=== PATIENT | male | born 1950 | race Caucasian/White ===

== ENCOUNTER → 2024-08-26 10:12 | Outpatient (REF) | payer BC, SELFPAY | LOC: HWRCS 10:12 | PROVIDERS: ATTENDING PHYSICIAN Internal Medicine Cardiovascular Disease; FAMILY PHYSICIAN Family Medicine | DX: R06.09 Other forms of dyspnea (principal) | CPT/HCPCS: 93306 ==

== ENCOUNTER → 2024-09-01 07:31 | Outpatient (REF) | payer BC, SELFPAY | LOC: HWRCS 07:31 | PROVIDERS: ATTENDING PHYSICIAN Internal Medicine Cardiovascular Disease; FAMILY PHYSICIAN Family Medicine | DX: R07.89 Other chest pain (principal) | CPT/HCPCS: 78452; 93017; A9500; J2785 ==

== ENCOUNTER 2025-04-15 00:37 | Inpatient (IN) | payer BC, SELFPAY ==
[2025-04-14 19:15] VITALS: BP 138/80
[2025-04-14 19:36] LABS: Hematocrit 43.9 % (39.0-52.0); Hemoglobin 15.2 g/dL (13.0-18.0); Mean Corp Hgb Conc. 34.6 g/dL (33.0-37.0); Mean Corpuscular Volume 91.3 fL (80.0-94.0); Nucleated Red Blood Cells % 0 % (-); Platelet Count 253 10^3/uL (130-400); Red Cell Dist. Width 12.1 % (11.5-14.5)
[2025-04-14 19:53] LABS: ALT (SGPT) 26 U/L (0-50); AST (SGOT) 24 U/L (17-59); Albumin 4.5 g/dl (3.5-5.0); Alkaline Phosphatase 27 U/L (38-126); Blood Urea Nitrogen 23 mg/dl (9-20); Calcium 9.9 mg/dl (8.4-10.2); Carbon Dioxide 23 mmol/L (22-30); Chloride 106 mmol/L (98-107); Glucose 178 mg/dl (70-99); Potassium 4.2 mmol/L (3.5-5.1); Sodium 137 mmol/L (135-145); Total Protein 7.0 g/dl (6.3-8.2); eGFR > 60.00
[2025-04-14 20:06] LABS: Troponin I 0.058 ng/ml
[2025-04-14 22:58] VITALS: BP 128/72
[2025-04-14 22:59] VITALS: BP 128/72
[2025-04-14 23:01] VITALS: BMI 23.6
[2025-04-14 23:32] VITALS: BP 139/76
[2025-04-14 23:38] LABS: Troponin I 0.069 ng/ml
[2025-04-15] VITALS (15 sets, daily range): BP systolic 98–146; BP diastolic 59–95; BMI 22.5; BMI 22.2
--- NOTE | 2025-04-15 00:02 | ED.GENMED ---
History of Present Illness
General
Chief Complaint: Chest Pain
Source: patient and spouse
Time Seen by Provider: 04/14/25 22:55
Nursing documentation reviewed up to this point in time: agreed with
History of Present Illness
History of Present Illness:
Note:
CHIEF COMPLAINT(S)
Chest discomfort and arm pain.
HISTORY OF PRESENT ILLNESS
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 This morning, the patient experienced tightness in
the chest, accompanied by pain radiating down both arms and a sensation of discomfort in the jaw�a symptom he has never experienced before. The symptoms lasted for approximately 15 to 20 minutes and occurred four separate times throughout the day,
initially at 8:00 AM and most recently at 5:30 PM. The patients symptoms dissipated on their own after each occurrence.
ADDITIONAL HISTORY OBTAINED FROM SOURCES OTHER THAN THE PATIENT
Per the patients family, he recently underwent an echo and a stress test ordered by Dr. Valles office, as well as a lung scan ordered by his primary physician at [place], which revealed concerns warranting further evaluation.
CHRONIC MEDICAL CONDITIONS SIGNIFICANTLY AFFECTING CARE
- Hypertension
- Diabetes Mellitus
SOCIAL DETERMINANTS AFFECTING HEALTH
The patients spouse indicated they have experienced a primary diagnosis that expedited his appointment with Dr. Burgess. The involvement of healthcare providers in adjusting appointments implies a significant level of engagement in managing his
health conditions.
FAMILY HISTORY
The patients father had coronary artery disease, and his mother had a history of cerebrovascular accident and was on dialysis due to diabetes. Both parents were diabetic.
SOCIAL HISTORY
The patient has a history of smoking throughout his life, now reduced to occasional cigarette use. He consumes a couple of drinks per week, noting a decrease in drinking frequency.
MEDICATIONS
The patient regularly takes aspirin, specifically for headache relief, rather than cardiac protection. He uses Excedrin, which is taken almost daily for headache management.
REVIEW OF SYSTEMS
- Cardiovascular: Reports tightness in the chest and pain radiating to the arms and jaw on several occasions today.
- Neurological: Complains of daily headaches for which he takes Excedrin.
PHYSICAL EXAM
General: Alert, no acute distress.
Skin: Warm, dry.
Head: Normocephalic, atraumatic, recent excision noted on the face for a benign skin lesion.
Neck: Supple, trachea midline.
Eye Ears, nose, mouth and throat: Oral mucosa moist.
Cardiovascular: Normal peripheral perfusion, No edema, heart sounds are clear.
Respiratory: Respirations are non-labored.
Gastrointestinal : Abdomen nondistended.
Back: Normal range of motion, Normal alignment.
Musculoskeletal: Normal ROM, normal strength.
Neurological: Alert and oriented to person, place, time, and situation, No focal neurological deficit observed.
Psychiatric: Cooperative, appropriate mood & affect.
PROBLEM LIST
Acute:
- Episodes of chest discomfort and arm/jaw pain
Chronic:
- Coronary artery calcifications
- Hypertension
- Diabetes mellitus
PLAN
The patient will be admitted for further evaluation and monitoring of cardiac symptoms. Considering the patients cardiac history and recent presentation, further diagnostic imaging and cardiac assessment will be warranted during the admission.
DIFFERENTIAL DIAGNOSIS
The Differential Diagnosis includes, in no particular order and is not limited to:
1. Acute coronary syndrome
2. Stable angina
3. Myocardial infarction
4. Costochondritis
5. Gastroesophageal reflux disease
6. Pulmonary embolism
7. Aortic dissection
8. Cardiac arrhythmias
9. Myocarditis
10. Anxiety-induced chest pain
Disposition:
SUMMARY OF ENCOUNTER
A 74-year-old male presented with four episodes of chest pain throughout the day, with the last occurring at 5:30 PM. The patients troponin levels are rising. Imaging studies from [place] indicated concerns related to left anterior descending
artery (LAD) calcifications, prompting a recommendation for further evaluation. Efforts to obtain these records from [place] were initially unsuccessful. Heparin was initiated for anticoagulation.
DISPOSITION
The patient will be admitted to the hospitalist service for further management of chest pain.
ASSESSMENT
The patient presents with acute episodes of chest discomfort, history of coronary artery calcifications, and currently rising troponin levels, indicating a possible acute coronary syndrome.
EMERGENCY TREATMENTS ADMINISTERED
Heparin was initiated.
MANAGEMENT OF THE PATIENTS CARE WAS DISCUSSED WITH
The hospitalist has been made aware of the patients current status and plans for admission.
PLAN
The patient will be admitted for further evaluation and monitoring, including continued cardiac assessment and troponin level monitoring, due to the suspected acute coronary syndrome.
INDEPENDENT REVIEW OF LABS AND INTERPRETATION OF TESTS
My independent review of the troponin indicates a rising trend, consistent with possible acute coronary syndrome.
MEDICAL DECISION MAKING
Number and Complexity of Problems Addressed: Chronic conditions affecting care include coronary artery calcifications, hypertension, and diabetes mellitus. Differential diagnosis includes acute coronary syndrome, stable angina, myocardial
infarction, costochondritis, gastroesophageal reflux disease, pulmonary embolism, aortic dissection, cardiac arrhythmias, myocarditis, and anxiety-induced chest pain.
Data:
- Category 1: Attempted to review external records from [place] regarding recent imaging studies but was initially unsuccessful.
- Category 2: Input from the patients family and external cardiology advisors informed the current plan.
DIAGNOSIS
Chest Pain (ICD-10 Code: R07.9)
Coronary Artery Calcification (ICD-10 Code: I25.10)
Suspected Acute Coronary Syndrome (ICD-10 Code: I24.9)
Phy Exam
Physical Exam
Physical Exam:
.
Scores
Heart Score for Chest Pain Patients
STEMI patient?: No
History: Slightly or Non-Suspicious
ECG: Nonspecific Repolarization
Age: >/= 65 years
Risk Factors: >/= 3 Risk Factors or History of CAD
Troponin: </= Normal Limit
Heart Score for Chest Pain Patients: 5
Heart Score Risk: 20.3% MACE over next 6 weeks
Course
Orders/Labs/Results
Orders:
Orders
04/14/25 19:06
Electrocardiogram (*1) Urgent
Reason for Study: Chest Pain
EKG- Treatment ONCE
04/14/25 19:28
Complete Blood Count/With Diff Urgent
Comprehensive Metabolic Panel Urgent
Troponin I Urgent
04/14/25 22:56
Electrocardiogram (*1) Urgent
Reason for Study: Chest Pain
EKG- Treatment ONCE
04/14/25 23:06
Troponin I Urgent
04/14/25 23:45
Heparin 85678 Units/250 ml 25,000 units in 250 ml IV PER PROTOCOL
Weight to be used for heparin protocol in kilograms (kg):: 72.4
Protocol:: Cardiac Tx/Acute Coronary
PTT Goal Range to be used:: PTT 73 to 111 seconds
Order type:: Initial
INITIAL Infusion Dose (UNITS/KG/hr) & then follow protocol:: 15 units/kg/hr
Infusion Dose in UNITS/hr & then follow protocol (UNITS/hr):: 1,100
INFUSION RATE in mL/hr & then follow protocol (mL/hr):: 11
PTT less than or equal to 64 seconds:: Increase rate by 200 units/hr (+ 2 mL/hr)
PTT 64.1 to 72.9 seconds:: Increase rate by 100 units/hr (+ 1 mL/hr)
PTT 73 to 111 seconds:: Target Range. No change in rate.
PTT 111.1 to 130.9 seconds:: Decrease rate by 100 units/hr (- 1 mL/hr)
PTT 131 to 199.9 seconds:: HOLD for 1 hr. Then decrease rate by 200 units/hr (- 2 mL/hr)
PTT greater than or equal to 200 seconds:: HOLD for 2 hrs & Notify Provider. Then decrease by 200 units/hr (-
2 mL/hr)
Lab follow-up:: Each change, PTT q6h until 2 consecutive are therapeutic. Then PTT
daily.
04/14/25 23:57
PTT Urgent
Comment: Obtain baseline before beginning heparin infusion if not already collected
Nursing to Place Non Medication Order As Directed
Physician Order: PTT 6 hours after initial start of Heparin infusion
Above order entered?: Yes
04/15/25 00:20
Admit/Transfer Patient As Directed
Co-Sign Provider:
Level of Care: Inpatient admission
Assign to:: Telemetry
Physician / Group: Eliud
Diagnosis: NSTEMI
Reason for Telemetry: Chest Pain syndromes
Date to Stop Telemetry: 04/17/25
Time to Stop Telemetry: 11:00
Reason for Hospitalization: nstemi
Expected length of stay greater than two midnights?: Yes
ELOS- Estimated Length of Stay in days: 2
I certify the patient meets the requirements for IP care: Yes
PRN Pain Medication Management As Directed
May give lesser potent ordered pain med per pt: Yes
preference::
Protocol:: Medication orders for pain may be administered in a
manner that supports deferring to patient preference
when the pt is:
- Requesting an ordered lesser potent pain medication.
Least to most potent pain medications are defined
as: acetaminophen < NSAID < tramadol < opioids
(morphine, oxycodone, hydromorphone).
- Requesting a lesser dose of the same medication IF
ORDERED.
- Requesting a less intrusive route of administration
if both routes are prescribed by the provider (PO <
IV).
04/15/25 00:21
Code Status As Directed
Resuscitation Status: Full Code
04/15/25 01:59
Acetaminophen [Tylenol] 650 mg PO Q4HPRN PRN
Diazepam [Valium] 5 mg PO DAILY PRN anxiety
Mag Hydrox/Al Hydrox/Simeth [Maalox] 30 ml PO Q4HPRN PRN
Nitroglycerin Sublingual [Nitrostat (Sublingual)] 0.4 mg SL [id number] PRN
Ondansetron Injectable [Zofran] 4 mg IV Q6HPRN PRN
04/15/25 01:59
CARDIOLOGY CONSULT Routine
Consulting Provider: Antoine Funes
Was physician already notified: No
Reason for consult: chest pain, nstemi
Consult Notification Routine
Specialty to Notify: Cardiology
VTE Contraindication Routine
VTE Mechanical Device Contraindication: Medical Contraindication
Pharmocologic Contraindication: Medical Contraindication
Heparin Protocol- PTT Orders As Directed
PTT per Heparin protocol: -Obtain CBC and baseline PTT - if not already collected.
-Obtain PTT 6 hours from start of infusion. Then, every 6 hours until 2 consecutive
PTT's are therapeutic. Then, PTT Daily.
-With each rate change, obtain PTT every 6 hours until 2 consecutive PTT's are
therapeutic. Then, PTT Daily.
Activity As Directed
Activity Level: As Tolerated
Bedside Glucose Monitoring As Directed
Frequency: Q6H
ECG as needed As Directed
ECG as needed for:: Chest Pain
Additional Instructions:: with chest pain x 2 episodes.
INT (Intravenous Needle Therapy) As Directed
Comment: maintain peripheral IV access
Intake/ Output As Directed
Frequency: Per unit guidelines
Notify MD As Directed
Notify physician if: PTT is greater than or equal to 200.
Vital Signs As Directed
Frequency: q4h
Weight As Directed
Frequency: Once
O2 Therapy [RESP] Routine
Titrate/Wean O2 to maintain O2 sat greater than (%): 93
04/15/25 03:35
Troponin I Q4H
Comment: at admit & Q3H for 3 total including ED draws, obtain ECG with each level
04/15/25 06:00
Basic Metabolic Panel IN AM
Cardiovascular Evaluation IN AM
Complete Blood Count/No Diff IN AM
Glycohemoglobin (HgbA1c) IN AM
Insulin Aspart Corrective Low [Novolog Flexpen-Low Resistance] See Protocol SC Q6
04/15/25 07:30
Troponin I Q4H
Comment: at admit & Q3H for 3 total including ED draws, obtain ECG with each level
04/15/25 08:00
Dapagliflozin [Farxiga] 10 mg PO DAILY
Lisinopril [Zestril] 2.5 mg PO DAILY
Pantoprazole [Protonix] 40 mg PO DAILY
04/15/25 11:30
Troponin I Q4H
Comment: at admit & Q3H for 3 total including ED draws, obtain ECG with each level
04/15/25 18:00
Atorvastatin [Lipitor] 5 mg PO QPM
04/15/25 22:00
Fenofibrate 145 [Tricor] 145 mg PO HS
04/17/25 06:00
Complete Blood Count/No Diff Q2D
Comment: notify provider: Platelet count < 130,000 or decrease by 50% from baseline
04/17/25 11:00
DC Protocol for Telemetry ONCE
04/19/25 06:00
Complete Blood Count/No Diff Q2D
Comment: notify provider: Platelet count < 130,000 or decrease by 50% from baseline
04/21/25 06:00
Complete Blood Count/No Diff Q2D
Comment: notify provider: Platelet count < 130,000 or decrease by 50% from baseline
04/23/25 06:00
Complete Blood Count/No Diff Q2D
Comment: notify provider: Platelet count < 130,000 or decrease by 50% from baseline
04/25/25 06:00
Complete Blood Count/No Diff Q2D
Comment: notify provider: Platelet count < 130,000 or decrease by 50% from baseline
04/27/25 06:00
Complete Blood Count/No Diff Q2D
Comment: notify provider: Platelet count < 130,000 or decrease by 50% from baseline
04/29/25 06:00
Complete Blood Count/No Diff Q2D
Comment: notify provider: Platelet count < 130,000 or decrease by 50% from baseline
05/01/25 06:00
Complete Blood Count/No Diff Q2D
Comment: notify provider: Platelet count < 130,000 or decrease by 50% from baseline
Abnormal Lab Results
04/14/25 04/14/25
19:28 23:06
MCH 31.6 H pg
(27.0-31.0)
Absolute Monos (auto) 0.8 H 10^3/uL
(0.1-0.6)
Monocytes % 11.2 H %
(1.7-9.3)
BUN 23 H mg/dl
(9-20)
Glucose 178 H mg/dl
(70-99)
Alkaline Phosphatase 27 L U/L
(38-126)
Troponin I 0.058 H* ng/ml 0.069 H* ng/ml
04/14/25 19:28
04/14/25 19:28
Vital Signs
Initial and Last Documented VS:
Initial Vital Signs
Temp Pulse Resp BP Pulse Ox
98.7 F 78 14 138/80 98
04/14/25 19:15 04/14/25 19:15 04/14/25 19:15 04/14/25 19:15 04/14/25 19:15
Last Documented Vital Signs
Temp Pulse Resp BP Pulse Ox
98.7 F 58 16 132/74 97
04/15/25 03:17 04/15/25 03:17 04/15/25 03:17 04/15/25 03:17 04/15/25 03:17
*Pulse Oximetry
SaO2: 97
Oxygen Mode of Delivery: Room air
Patient hypoxic: no
*Critical Care Note
Total Time (30-74mins, 75-104mins- exclusive of procedures): 32 (Critical care statement: A total of 32 minutes of critical care time was provided for this patient. This time is separate from time utilized to perform the aforementioned documented
procedures. Aggregate critical care time includes only time during which I was engaged in work directl)
Update Note
Update Note:
Pain physician leg checked. No patient found. We spoke with [facility], and they were unable to access any CAT scan.
ED Attending Note
-
Portions of this chart may have been created with voice recognition software.� Occasional wrong word or��sound alike� substitutions may have occurred due to the inherent limitations of voice recognition software.
Discharge Plan
Departure
Patient Disposition: Admit
Date of Disposition: 04/15/25
Time of Disposition: 00:09
Presentation/result/management discussed w/ accepting MD/DO: Hospitalist
Discharge Problem:
Chest pain
Interventions
Interventions:
*Risk Screen - Suicide Last Done: 04/15/25 02:22
*General Assessment Last Done: 04/14/25 19:15
*Neglect/Abuse Screening Last Done: 04/14/25 19:15
*ED COVID-19 Vaccine History Last Done: 04/15/25 02:22
*ED Influenza Vaccine History Last Done: 04/14/25 19:15
*Nursing Disposition Last Done: 04/15/25 01:52
ED- Cardiac Assessment Last Done: 04/14/25 20:45
Discharge Date and Time
Discharge Date/Time: 04/15/25 01:53
--- NOTE | 2025-04-15 00:16 | HPS.HSE ---
Family Physician
-
Family Physician: Poppy Bailey
Chief Complaint
-
Chest pain
History of Present Illness
This is a 74-year-old male with past medical history of hypertension, hyperlipidemia, GERD, diabetes presenting to the emergency department with chest pain.
Patient has history of of obstructive coronary calcifications for several years and had a routine lung screening due to history of smoking which showed increased coronary calcifications with some concerning lesion in the LAD about 1 week ago. He
has a scheduled cardiology appointment. He reported that he had a stress test and echo earlier this year which did not definitive for reversible coronary ischemia.
He reports been usual state of health up until today when he started having intermittent chest pain. He reports substernal chest tightness with radiation to the and bilaterally to the neck and to the jaw. He reported that this lasted for about 10
to 20 minutes. It occurred about 4 times during the day before he came to the emergency department for evaluation. He did not take any medications. He denies diaphoresis and nausea or vomiting. He denied palpitations.
In the emergency department, patient was afebrile, blood pressure 140/76 with a pulse rate of 64 and he was satting 97% on room air. ECG shows a normal sinus rhythm at rate of [address] or T wave changes. Troponin was 0.069.
CBC was unremarkable, electrolytes BUN/creatinine were normal.
Medical History
Past Medical History
Past Medical History: Reports GERD, HTN and Hypercholesterolemia
Past Surgical History: Reports Bowel Resection (Pressure colectomy secondary to diverticulitis) and Other (Mohs surgery, )
Social History
Tobacco: Smoker
Alcohol: Occasional
Drug: None
Personal:
Family History
Family History: Not pertinent
Allergies / Home Medications
Allergies reflects when Allergies were last updated in [facility].
Home Medications with original date entered in [facility]
Allergy/Medication List:
Allergies
Allergy/AdvReac Type Severity Reaction Status Date / Time
No Known Allergies Allergy Verified 04/14/25 23:01
Home Medications
atorvastatin 10 mg tablet (Lipitor) 5 mg PO .DAILYWITHDINNER 04/14/25
bisoprolol 5 mg-hydrochlorothiazide 6.25 mg tablet 1 tab PO .DAILYATNOON 04/14/25
dapagliflozin propanediol 10 mg tablet (Farxiga) 10 mg PO DAILY 04/14/25
diazepam 5 mg tablet 5 mg PO DAILY PRN anxiety 04/14/25
esomeprazole magnesium 20 mg capsule,delayed release (Nexium) 20 mg PO BID 04/14/25
fenofibrate nanocrystallized 145 mg tablet (Tricor) 145 mg PO HS 04/14/25
lisinopril 2.5 mg tablet 2.5 mg PO DAILY 04/14/25
semaglutide 1 mg/dose (4 mg/3 mL) subcutaneous pen injector (Ozempic) 1 mg SC .QSATURDAY 04/14/25
valacyclovir 500 mg tablet 1,000 mg PO .QWEDNESANDS04/14/25
Review of Systems
-
Constitutional: Reports No Symptoms
EENT: Reports No Symptoms
Respiratory: Reports No Symptoms
Cardiac: Reports Chest Pain
Abdomen/GI: Reports No Symptoms
: Reports No Symptoms
Musculoskeletal: Reports No Symptoms
Skin: Reports No Symptoms
Neurological: Reports No Symptoms
Endocrine: Reports No Symptoms
Hematologic/Lymphatic: Reports No Symptoms
Psych: Reports No Symptoms
Physical Exam
Vital Signs
Vital Signs
Temp Pulse Resp BP Pulse Ox
98.7 F 64 21 139/76 97
04/14/25 22:59 04/14/25 23:32 04/14/25 23:32 04/14/25 23:32 04/15/25 00:10
Physical Exam
General: Well Developed, Well Nourished and No Apparent Distress
HEENT: NormoCephalic, Moist mucous membranes and Atraumatic
Respiratory: Clear
Cardiac: S1/S2 and Regular Rhythm; No Murmur or Rub
GI: Soft, Non Tender, Non Distended and Normal Bowel Sounds; No Organomegaly
Rectal: Deferred by Provider
Musculoskeletal: No Clubbing, No Cyanosis and No Edema
Skin: No Rash
Neuro: Nonfocal/grossly intact
Laboratory Results
-
04/14/25 19:28
04/14/25 19:
Laboratory Results
Total Bilirubin 0.4 mg/dl (0.2-1.3) 04/14/25 19:
AST 24 U/L (17-59) 04/14/25:
ALT 26 U/L (0-50) 04/14/25:
Alkaline Phosphatase 27 U/L (38-126) L 04/14/25 19:
Troponin I 0.069 ng/ml H* 04/14/25 23:06
Data Reviewed
-
Medical Tests (Nuc Med, Echo, EKG etc): Image Personally Visualized and interpreted
Lab Data: Labs Reviewed by me
Impression/Plan
-
IMPRESSION:
73-year-old with past medical history significant for hypertension, hyperlipidemia, [id number] diabetes presents to the emergency department with chest pain. He had a recent CT coronary angiography showing significant disease in LAD. He
arrived with initial troponin of 0.07. ECG is nonischemic. He is currently chest pain-free.
PLAN:
NSTEMI
- Admit to telemetry
-Nitroglycerin as needed chest pain
-Continue aspirin, statin plus Tricor,
-Started on heparin drip
-N.p.o. after midnight
-Cardiology consult
Diabetes
-Sliding scale insulin while n.p.o.
- Continue Farxiga
Hypertension
Continue his bisoprolol and hydrochlorothiazide and lisinopril
DVT prophylaxis�heparin drip
CODE STATUS�full code
[2025-04-15 00:46] LABS: APTT 24.6 Sec (23.4-35.0)
[2025-04-15] MEDS: HEPARIN 5800 UNITS IV (01:06)
[2025-04-15] MEDS: HEPARIN 25000 UNITS/250 ML IV ×2 (01:08→18:00)
[2025-04-15 04:21] LABS: Troponin I 0.118 ng/ml
[2025-04-15 06:04] LABS: Glucose - Point of Care 124 mg/dl (70-99)
[2025-04-15 07:38] LABS: Hematocrit 45.2 % (39.0-52.0); Hemoglobin 15.3 g/dL (13.0-18.0); Mean Corp Hgb Conc. 33.8 g/dL (33.0-37.0); Mean Corpuscular Volume 94.2 fL (80.0-94.0); Platelet Count 246 10^3/uL (130-400); Red Cell Dist. Width 12.1 % (11.5-14.5)
--- NOTE | 2025-04-15 07:49 | CON.CAR ---
Addendum entered and electronically signed by Antoine Funes MD 04/15/25 08:46:
I saw and examined the patient.
The Brim Buster's note was reviewed and I agree with the note.
Comment:
GEN: No distress, awake, Ox3
HEENT: supple, anicteric, mmm
LUNGS: CTA, no wheezes/rales
CV: Reg, S1/S2, 1/6 syst LSB, no gallop
ABD: soft, BS+, NT/ND
EXT: No edema
NEURO: Gross non-focal
SKIN: No rash
PLan:
Tknvhude-[id number]-num male past medical hypertension, diabetes, hyperlipidemia and known abnormal coronary calcium score presents with chest tightness rating to his jaw and arms. This initially began with his walking the dog and lasted for
approximately a half an hour and then stopped. He then had several other episodes which occurred at rest and he came to the emerged in for further evaluation. Card troponins were found to be abnormal at 0.1. He currently is pain-free. He denies
any fevers sweats or chills. Previous tress testing has been unremarkable with no clear ischemia from August 2024 with a preserved ejection fraction.
Non-STEMI
Continue IV heparin. Continue aspirin, continue high dose atorvastatin 40 mg daily.
Continue bisoprolol, HCTZ and lisinopril.
Check lipids. Goal LDL 55
Check echocardiogram.
Proceed with cardiac catheterization today. Would hold off on Plavix due to possible three-vessel disease.
Smoking cessation
Original Note:
Consultation
Consultation Request
Date/Time Consultation Performed: 04/15/25
Requesting Provider: Dr. Pratt
Performing Provider: Meagan Taylor PA-C for Dr. Funes
Reason for Consultation: CP, NSTEMI
Medical History
-
Chief Complaint: CP
History of Present Illness:
Patient is a 74-year-old male with past medical history of hypertension, hyperlipidemia, type 2 diabetes with known markedly abnormal coronary calcium score with majority in LAD territory. He was seen in our office 07/2024 and due to complaints of
some dyspnea on exertion and atypical chest pains underwent a nuclear stress test 09/01/2024 which showed a small basal inferior and mid inferior defect that is fixed without evidence of ischemia and preserved EF. He reports he underwent a CT lung
scan in February 2025 which showed severe coronary calcifications. He reports then yesterday he had 4 episodes of chest tightness with associated aching in his jaw and bilateral arm pain. He reports initially this was with walking the dog, however
another episode was just while he was sitting on the couch reading the paper. He reports each episode lasted from 10 to 20 minutes and resolved on its own. As it continued to recur he came to the ER for further evaluation. Initial troponin 0.058
and uptrending. He is presently without chest pain. Cardiology consulted for evaluation
PMH:
History of abnormal coronary calcium score, majority in LAD territory
HTN
HLD
DM2
Mohs surgery 04/10/25
ongoing tobacco use
Past Medical History
Past Medical History: Other (in HPI)
Social History
Tobacco: Smoker
Alcohol: Occasional
Personal:
Living: With Family
Employment: Retired
Family History
Family History: CAD (bypass in Mother)
Allergies / Home Medications
Allergy/AdvReac Type Severity Reaction Status Date / Time
No Known Allergies Allergy Verified 04/14/25 23:01
�Medication �Instructions �Recorded �Confirmed �Type
atorvastatin 10 mg tablet (Lipitor) 5 mg PO .DAILYWITHDINNER 04/14/25 04/14/25 History
bisoprolol 5 1 tab PO .DAILYATNOON 04/14/25 04/14/25 History
mg-hydrochlorothiazide 6.25 mg
tablet
dapagliflozin propanediol 10 mg 10 mg PO DAILY 04/14/25 04/14/25 History
tablet (Farxiga)
diazepam 5 mg tablet 5 mg PO DAILY PRN anxiety 04/14/25 04/14/25 History
esomeprazole magnesium 20 mg 20 mg PO BID 04/14/25 04/14/25 History
capsule,delayed release (Nexium)
fenofibrate nanocrystallized 145 145 mg PO HS 04/14/25 04/14/25 History
mg tablet (Tricor)
lisinopril 2.5 mg tablet 2.5 mg PO DAILY 04/14/25 04/14/25 History
semaglutide 1 mg/dose (4 mg/3 mL) 1 mg SC .QSATURDAY 04/14/25 04/14/25 History
subcutaneous pen injector (Ozempic)
valacyclovir 500 mg tablet 1,000 mg PO .QWEDNESUND04/14/25 04/14/25 History
Review of Systems
-
History Source: Patient
All other systems: Negative unless noted
Physical Exam
Vital Signs
Temp Pulse Resp BP Pulse Ox
98.7 F 58 16 132/74 97
04/15/25 03:17 04/15/25 03:17 04/15/25 03:17 04/15/25 03:17 04/15/25 03:17
Lab Results
04/15/25 07:27
Troponin I 0.118 ng/ml H* D 04/15/25 03:35
Physical Exam
General: No Apparent Distress and Comfortable
HEENT: Normocephalic, Anicteric and Moist Mucous Membranes
Respiratory: Clear and Non Labored Respirations
Cardiac: S1/S2 and Regular Rhythm
GI: Soft, Non Tender, Non Distended and Normal Bowel Sounds
Musculoskeletal: No Clubbing, No Cyanosis and No Edema
Skin: Warm and Dry
Neuro: AO x 3
Impression / Plan
-
Primary Freight Engineer: Dr. Funes
Assessment:
Presentation with CP
NSTEMI
History of abnormal coronary calcium score, majority in LAD territory
Severe coronary calcification noted by lung CT 02/2025
HTN
HLD
DM2
Mohs surgery 04/10/25
ongoing tobacco use
ECHO 08/26/24: EF 64%, mild cLVH, aortic sclerosis, PAP 23 mmHg
Lexiscan nuclear stress test 09/01/24: small basal inferior and mid inferior defect, fixed without evidence of ischemiam EF 63%.
Plan:
-Patient presents with 4 episodes of chest discomfort in setting of prior abnormal coronary calcium score and coronary calcifications noted by lung CT 02/2025
-trop uptrending, 0.118. trend to peak
-EKG SR with NSSTS
-last echo and stress with results as above from earlier this year. check repeat echo
-continue asa, IV heparin
-NPO for cardiac cath today. procedure reviewed with patient today and agreeable to proceed
-CVE pending. on lipitor as OP, will increase dose to 40mg QPM
-in SR on review of tele. continue OP bisoprolol
-further recs based on results of above
Data Reviewed
-
EKG: Tracing Personally Visualized and interpreted
Medical Tests (Nuc Med, Echo etc): Report Reviewed by me
Labs: Labs Reviewed by me
Old Records: Reviewed
[2025-04-15 07:51] LABS: APTT 72.8 Sec (23.4-35.0)
[2025-04-15 08:12] LABS: Troponin I 0.134 ng/ml
--- NOTE | 2025-04-15 08:20 | W.PN.HOSP.TC ---
Today's Communication/Plan
-
see PN
Assessment / Plan
Assessment / Plan
74yo M with PMHx of DM, HTN, HLD came with 3 episodes of transient pressure-like chest pain radiating to jaw and arms b/l. With elevated troponin - concern for NSTEMI
A/P:
#NSTEMI
Heparin drip
ASA, statin, BB
Telemetry
serial Trop and EKG. Initial EKG in ED without ST elevation or TWI
Ntro SL
Card consult: plan for cardiac cath
check TSH, HgbA1c, lipids
#DM type 2 with unspecified complications
Hold oral antighycemic
Insulin SS, Accuchecks, DM diet
#Essential HTN
cont home meds
DVT ppx hep drip
full code
I have spent at least 58min reviewing chart, test results, communication with consultnats and providing direct patient care
Anticipated Discharge: 24 - 48 hours
Subjective/Interval History
-
Date of Service: April 15, 2025
Objective Data
-
Labs:
Laboratory Results
04/15/25 04/15/25 04/15/25
00:23 07:26 07:27
WBC 6.5
Hgb 15.3
Hct 45.2
Plt Count 246
APTT 24.6 72.8 H
Sodium Pending
Potassium Pending
Chloride Pending
Carbon Dioxide Pending
BUN Pending
Creatinine Pending
Glucose Pending
Calcium Pending
Vital Signs:
Vital Signs
Temp Pulse Resp BP Pulse Ox
98.7 F 58 16 132/74 97
04/15/25 03:17 04/15/25 03:17 04/15/25 03:17 04/15/25 03:17 10/01/25 03:17
Review of Systems
-
History Source: Patient
All other systems: Reviewed and negative
Physical Exam
-
General: No Apparent Distress
HEENT: Normocephalic
Respiratory: Clear to Auscultation
Cardiac: Regular Rhythm
Neuro: Awake, Alert, Oriented and AO x 3
Psych: Calm
[2025-04-15] MEDS: PROTONIX 40 MG PO (09:09)
[2025-04-15] MEDS: LOW STRENGTH ASPIRIN 81 MG PO (09:09)
[2025-04-15] MEDS: ZESTRIL 2.5 MG PO (09:10)
[2025-04-15 09:17] LABS: Blood Urea Nitrogen 18 mg/dl (9-20); Calcium 9.4 mg/dl (8.4-10.2); Carbon Dioxide 25 mmol/L (22-30); Chloride 104 mmol/L (98-107); Estimated Creatinine Clearance 110 ml/min; Glucose 142 mg/dl (70-99); HDL Cholesterol 31 mg/dl; LDL Cholesterol, Calculated 53 mg/dl; Potassium 4.1 mmol/L (3.5-5.1); Sodium 137 mmol/L (135-145); Very Low Density Lipoprotein 33 mg/dl (0-30); eGFR > 60.00
--- NOTE | 2025-04-15 09:59 | ITS.CL.CATH ---
C[facility] - Catheterization
Cardiac Catheterization
Procedure Report:
LEFT HEART CATHETERIZATION
Date of Procedure: April 15, 2025
Referring: Aldair Funes
PROCEDURES:
1. Left heart catheterization, coronary angiogram.
2. Moderate sedation.
INDICATION: Concern for NSTEMI
ACCESS: Right radial artery, 6Fr. sheath, under US guidance.
HEMODYNAMICS : (mmHg)
AO (s/d) : 95/56
LVEDP : 11
No significant gradient across the aortic valve to suggest aortic stenosis.
CORONARY FINDINGS
Dominance: Right
Left Main Trunk (LMT): Large caliber vessel that gives rise to the LAD and LCx branches. There is mild diffuse atherosclerotic plaque.
Left Anterior Descending Artery (LAD): Large caliber vessel that gives off 2 major diagonal branches as it courses along the anterior inter-ventricular groove before wrapping around the cardiac apex. Proximal LAD has a hazy, irregular 85 to 90%
stenosis which could also be a possible culprit for presenting ACS.
Left Circumflex Artery (LCx): Small to medium caliber nondominant vessel with 1 small to medium caliber OM branch. Ostial left circumflex has calcified 80% stenosis. Ostial OM1 has 75% stenosis.
Right Coronary Artery (RCA): Large caliber dominant vessel that gives rise to the posterior descending artery (RPDA) and postero-lateral ventricular (RPLV) branches distally. Proximal to mid RCA has diffuse mild to moderate plaque. Mid RCA has
tubular 70% stenosis and distal RCA has tubular up to 90% stenosis which is possible culprit of presenting ACS. RPDA proximally has eccentric 50 to 60% stenosis. RPL branch is a very small caliber vessel with ostial 50% stenosis.
SEDATION: 17 minutes of procedural sedation was utilized. IV Midazolam and IV Fentanyl were administered. An independent medical recruiter was present to assist with and help manage the patient's level of consciousness and physiologic status.
RADIATION SUMMARY: Fluoro Time (min): 1.7, Dose (mGy): 259.77, DAP (Gy.cm2) : 19.7
Closure Device: There were no immediate intra-procedural complications. The sheath was pulled in the canvas shop laborer and a vascular-band applied to the right wrist for radial artery hemostasis using the patent hemostasis technique.
CONCLUSIONS
1. Multivessel coronary artery disease involving the LAD, small to medium caliber nondominant left circumflex as well as a dominant RCA.
2. LVEDP of 11 mmHg.
RECOMMENDATIONS
1. Wean radial band per protocol. Monitor right hand perfusion and for bleeding from the radial site following removal of the vascular-band following trans-radial access.
2. Continue aggressive medical therapy and risk factor modification for secondary CAD prevention.
3. Hydrate with normal saline to mitigate the risk of contrast-induced acute kidney injury.
4. CT surgery consult for consideration of coronary artery bypass grafting with grafts to LAD, OM, RPDA as feasible.
5. Full echocardiogram to assess biventricular function and rule out any significant valvular abnormalities.
Rosemary Tucker MD, FACC, [facility] [place]
Copy to: Aldair Funes
[2025-04-15 12:32] LABS: Glucose - Point of Care 119 mg/dl (70-99)
[2025-04-15 12:43] LABS: Troponin I 0.115 ng/ml
[2025-04-15] MEDS: ZEBETA PO ×2 (12:54→13:09)
--- NOTE | 2025-04-15 13:15 | PTCARENOTE ---
Patent back from labview programmer with TR band on, blood pressures 90/50's, pt denies pain/numbness. Relayed blood pressures to hospitalist
--- NOTE | 2025-04-15 14:05 | CM ---
Reviewed the chart notes and spoke with the patient at the bedside. Advance Directive packet provided to the patient per request. The patient resides with his spouse in a one story home with one step to enter. The patient reports no DME/VN/SNF in
the past. Patient confirmed his pharmacy of choice is [address] CM continues to be available to patient/family and is monitoring medical plan for needs at discharge.
Plan: Discharge to home when medically stable with no further needs identified.
--- NOTE | 2025-04-15 14:20 | CONSULT.CT ---
Consultation
-
Date/Time Consultation Requested: 04/15/25
Date/Time Consultation Performed: 04/15/25
Requesting Provider: Rosemary Tucker MD
Performing Provider: Rosalie MATA for Ascencion Smith MD
Reason for Consultation: CABG evaluation
Patient History
Physicians
Family Physician: Poppy Bailey
Outpatient Supervisor [employer]: Antoine Funes
Inpatient Supervisor [employer]: [facility]
History of Present Illness
74-year-old male with past medical history of hypertension, hyperlipidemia, type 2 diabetes and known markedly abnormal coronary calcium score with majority in LAD territory. He underwent a nuclear stress test 09/01/2024 which reported a small basal
inferior and mid inferior defect that is fixed without evidence of ischemia and preserved EF. Underwent a CT lung scan in February 2025 which showed severe coronary calcifications. On 04/14, the patient developed 'mild' chest tightness with
associated jaw and bilateral arm pain while walking his dog. Similar symptoms occurred several hours later while he was reading the paper. He presented to [facility] ER after an unprovoked third episode. Initial troponin 0.058 and peak 0.134 consistent
with ACS/NSTEMI. On 04/15, patient was taken to the catheterization lab and found to have triple-vessel coronary disease. Cardiac surgery was consulted for CABG evaluation. Patient is currently pain-free resting in bed.
Past Medical History
Past Medical History: HTN, Hypercholesterolemia, NIDDM (x 10 years) and Other (Hepatitis C-told had natural immunity?; diverticulitis; BPH)
Past Surgical History
Past Surgical History: Other (Moh's forehead 04/10/25; R eye cataract extraction; HoLEP for BPH, bowel resection d/t diverticulitis)
Family History
Mother: N/A
Father: N/A
Social History
Alcohol: Occasional
Drug: None
Tobacco: Smoker (prior 1 PPD x 30 yrs, recent 1-2 cigs/d)
Personal:
Living: With Spouse (disabled RN)
Employment: Retired ([employer])
Allergies
Allergy/AdvReac Type Severity Reaction Status Date / Time
No Known Allergies Allergy Verified 04/14/25 23:01
Home Medications
�Medication �Instructions �Recorded �Confirmed �Type
atorvastatin 10 mg tablet (Lipitor) 5 mg PO .DAILYWITHDINNER 04/14/25 04/14/25 History
bisoprolol 5 1 tab PO .DAILYATNOON 04/14/25 04/14/25 History
mg-hydrochlorothiazide 6.25 mg
tablet
dapagliflozin propanediol 10 mg 10 mg PO DAILY 04/14/25 04/14/25 History
tablet (Farxiga)
diazepam 5 mg tablet 5 mg PO DAILY PRN anxiety 04/14/25 04/14/25 History
esomeprazole magnesium 20 mg 20 mg PO BID 04/14/25 04/14/25 History
capsule,delayed release (Nexium)
fenofibrate nanocrystallized 145 145 mg PO HS 04/14/25 04/14/25 History
mg tablet (Tricor)
lisinopril 2.5 mg tablet 2.5 mg PO DAILY 04/14/25 04/14/25 History
semaglutide 1 mg/dose (4 mg/3 mL) 1 mg SC .QSATUR04/14/25 04/14/25 History
subcutaneous pen injector (Ozempic)
valacyclovir 500 mg tablet 1,000 mg PO .QWEDNES04/14/25 04/14/25 History
Review of Systems
-
History Source: Patient
General: Reports No Symptoms
HEENT: Reports No Symptoms
Respiratory: Reports No Symptoms
Cardiac: Reports No Symptoms
Abdomen/GI: Reports No Symptoms
: Reports No Symptoms
Musculoskeletal: Reports No Symptoms
Skin: Reports No Symptoms
Neurological: Reports No Symptoms
Vascular: Reports No Symptoms
Physical Exam
Vital Signs
Temp 98.8 F 04/15/25 14:00
Temp route: Oral 04/15/25 14:00
Pulse 71 04/15/25 14:00
Rhythm: Normal sinus rhythm 04/15/25 09:12
Resp Rate 20 04/15/25 14:00
Blood pressure 139/79 04/15/25 14:00
Blood pressure extremity used: Left upper arm 04/15/25 14:00
Position: Lying 04/15/25 14:00
MAP (cuff-Niocle Monitor) 88 04/15/25 01:00
MAP 88 04/14/25 22:59
SaO2 97 04/15/25 14:00
Oxygen Mode of Delivery Room air 04/15/25 14:00
Can the patient verbally communicate their pain? Yes 04/15/25 09:12
Actual Weight 71.123 kg 04/15/25 02:08
Body Mass Index (BMI) 22.5 04/15/25 02:08
Labs
04/15/25 07:27
04/15/25 07:27
APTT Cancelled 04/15/25 15:00
Troponin I 0.115 ng/ml H* 04/15/25 11:48
Diagnostic Studies
Left Heart Cath (R radial -Dr. Tucker) 04/15/25:
Left Main: mild diffuse atherosclerotic plaque
LAD: hazy, irregular 85-90% proximal stenosis
LCx: Small to medium caliber nondominant vessel with 1 small to medium caliber OM branch. Calcified 80% ostial stenosis. 75% ostial OM1 stenosis.
RCA: Large caliber dominant vessel that gives rise to the posterior descending artery (RPDA) and postero-lateral ventricular (RPLV) branches distally. Proximal to mid RCA has diffuse mild to moderate plaque. Mid RCA has tubular 70% mid and 90%
distal RCA stenosis. Proximal eccentric 50 to 60% RPDA stenosis. Ostial 50% RPL stenosis.
Exam
General: Well Developed, Well Nourished and No Apparent Distress
HEENT: Normocephalic, Anicteric, Moist Mucous Membranes and PERRLA
Neck: Trachea Midline
Respiratory: Clear
Cardiac: S1/S2 and Regular Rhythm
GI: Soft, Non Tender, Non Distended and Normal Bowel Sounds
Rectal: Deferred by Provider
Skin: Warm and Dry
Neuro: AO x 3, No Motor Deficits and Nonfocal/Grossly Intact
Extremities: Pulses (+2/4 DP pulses B/L)
Lymph: No Lymphadenopathy
Psych: Calm
Assessment / Plan
-
74 year old male with known elevated coronary calcium score and admitted with ACS/NSTEMI (troponin max 0.134). Found to have triple vessel coronary disease on cardiac catheterization
- surgeon to review imaging and discuss CABG risk/benefit with patient
- HCV-RCA ordered to assess Hepatitis C status
- hold Lisinopril (last dose (04/15)
- last Ozempic 04/10/25
- preop diagnostics ordered
- will calculate STS risk score when diagnostic work-up completed
Data Reviewed
-
EKG: Report Reviewed by me and Discussed with Physician
Sole Seamer: Report Reviewed by me and Discussed with Physician
Echo: Report Reviewed by me and Discussed with Physician
Radiology: Report Reviewed by me and Discussed with Physician
Labs: Labs Reviewed by me and Discussed with Physician
--- NOTE | 2025-04-15 15:43 | PTCARENOTE ---
Reached out to cardiac surgery CARDIOVASCULAR SPECIALIST Gareth and confirmed that I can move pt's type and screen to midnight lab draw when he will get next aptt check. Saves patient needle stick.
--- NOTE | 2025-04-15 16:32 | PTCARENOTE ---
Also confirmed with cardiac surgery SUPERVISOR COOK ROOM that serum HCV can be collected with midnight blood work as well. Will pass along to shift production supervisor RN
[2025-04-15] MEDS: LIPITOR 40 MG PO (17:16)
[2025-04-15 17:49] LABS: Glucose - Point of Care 107 mg/dl (70-99)
--- NOTE | 2025-04-15 18:10 | PTCARENOTE ---
Patient transferred to ivu on telemetry. Heparin restarted per order with receiving RN. Pt at bedside
--- NOTE | 2025-04-15 18:41 | PTCARENOTE ---
Patient admitted to IVU. Patient is AO x3, NSR, VSS. Heparin started 1200 units/hr. Right arm cath site CDI with Tegaderm. Patient oriented to room and call serrano placed in reach
[2025-04-15 22:17] LABS: Glucose - Point of Care 187 mg/dl (70-99)
[2025-04-15] MEDS: TRICOR 145 MG PO (22:19)
--- NOTE | 2025-04-15 23:17 | PTCARENOTE ---
Pt rec'd at change of shift sitting on side of bed with family at bedside. No c/o cp or sob. Pt instructed to call nursing should he develop any CP.
CXR completed in dept. Heparin drip infusing via LAC. ptt due at in.
Right radial site with DDI, good pulse. IS encouraged hourly with pt hitting 2500 consistently.
[2025-04-16] VITALS (7 sets, daily range): BP systolic 119–154; BP diastolic 69–99; BMI 22.0
[2025-04-16 00:45] LABS: APTT 34.3 Sec (23.4-35.0)
[2025-04-16] MEDS: HEPARIN 25000 UNITS/250 ML IV (05:34)
[2025-04-16 06:37] LABS: INR 1.00; PT 13.8 Sec (11.4-14.6)
[2025-04-16 06:38] LABS: APTT 59.3 Sec (23.4-35.0)
[2025-04-16 06:40] LABS: Blood Urea Nitrogen 19 mg/dl (9-20); Calcium 9.7 mg/dl (8.4-10.2); Carbon Dioxide 23 mmol/L (22-30); Chloride 103 mmol/L (98-107); Estimated Creatinine Clearance 93 ml/min; Glucose 149 mg/dl (70-99); Potassium 4.3 mmol/L (3.5-5.1); Sodium 133 mmol/L (135-145); eGFR > 60.00
--- NOTE | 2025-04-16 08:16 | W.PN.UPDATE ---
Update Note
Progress Note Update
CARDIAC SURGERY ATTENDING:
It was my pleasure to meet with Mr. Butch Lund at his bedside today. His was present via telephone during our conversations. He is a very pleasant gentleman with multivessel CAD. He will benefit from surgical coronary revascularization.
I anticipate HERMES to LAD, greater saphenous vein to OM, greater saphenous vein to RPDA. I recommended concurrent exclusion of his left atrial appendage. We reviewed his coronary pathology, discussed the proposed operative interventions, reviewed
the periprocedural risks (including, but not limited to, , stroke, MT, arrhythmia, PNA, CESILIA/F, bleeding, and infection), discussed expected in-hospital postprocedural course, and reviewed the expected outpatient recovery. All questions were
answered to the best of my abilities. The patient is agreeable to proceed.
His procedure has been scheduled for 04/17/2025
Please call with any questions or concerns
Thank you for the opportunity participate in the care of this patient.
Ascencion Smith MD
[phone]
[2025-04-16 08:47] LABS: Glucose - Point of Care 150 mg/dl (70-99)
[2025-04-16 08:49] LABS: Glycohemoglobin (HgbA1c) 7.4 % (4.0-5.6)
--- NOTE | 2025-04-16 09:35 | W.PN.CARDCBS ---
Addendum entered and electronically signed by Antoine Funes MD 04/16/25 18:26:
I saw and examined the patient.
The Adult Nurse Practitioner's note was reviewed and I agree with the note.
Comment:
GEN: No distress, awake, Ox3
HEENT: supple, anicteric, mmm
LUNGS: CTA, no wheezes/rales
CV: Reg, S1/S2, 1/6 syst LSB, no gallop
ABD: soft, BS+, NT/ND
EXT: No edema
NEURO: Gross non-focal
SKIN: No rash
PLan:
Reviewed results of cardiac cath with him. He has three-vessel disease including LAD, left circumflex, and RCA. Plan will be for coronary bypass surgery in AM.
Continue IV heparin, aspirin, and atorvastatin.
Will switch his bisoprolol to metoprolol postoperatively.
Creatinine 0.7 and hemoglobin normal
Original Note:
Today's Communication / Plan
-
CABG in a.m.
Continue IV heparin, aspirin, Lipitor
Will follow postoperatively
Impression / Plan
-
Primary Pay Station Attendant: Dr. Funes
Assessment:
Presentation with CP
NSTEMI
History of abnormal coronary calcium score, majority in LAD territory
Severe coronary calcification noted by lung CT 02/2025
HTN
HLD
DM2
Mohs surgery 04/10/25
ongoing tobacco use
ECHO 08/26/24: EF 64%, mild cLVH, aortic sclerosis, PAP 23 mmHg
Lexiscan nuclear stress test 09/01/24: small basal inferior and mid inferior defect, fixed without evidence of ischemiam EF 63%.
Echo 04/15/25: EF 55 to 60%, mild concentric LVH, moderate MAC, trace MR
Plan:
-Patient presents with 4 episodes of chest discomfort in setting of prior abnormal coronary calcium score and coronary calcifications noted by lung CT 02/2025
-trop peaked at 0.13
-Echo with results as above
-cath with MV CAD
-planned for CABG 04/17
-no CP overnight
-continue asa, IV heparin
-LDL 53. on lipitor as OP, will increase dose to 40mg QPM
-in SR on review of tele. continue OP bisoprolol
-He has sutures which remain in place from recent Mohs surgery on forehead. 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 Will discuss with CT surgery, and can remove prior to discharge
-will continue to follow post operatively
Progress Note - Pay Station Attendant
Subjective
Date of Service: April 16, 2025
No chest pain, shortness of breath overnight
Objective
Labs:
04/15/25 07:27
04/16/25 05:31
Labs
Hgb 15.3 g/dL (13.0-18.0) 04/15/25 07:27
Hct 45.2 % (39.0-52.0) 04/15/25 07:27
Plt Count 246 10^3/uL (130-400) 04/15/25 07:27
PT 13.8 Sec (11.4-14.6) 04/16/25 05:31
INR 1.00 04/16/25 05:31
APTT 59.3 Sec (23.4-35.0) H 04/16/25 05:31
Sodium 133 mmol/L (135-145) L 04/16/25 05:31
Potassium 4.3 mmol/L (3.5-5.1) 04/16/25 05:31
BUN 19 mg/dl (9-20) 04/16/25 05:31
Creatinine 0.7 mg/dL (0.7-1.3) 04/16/25 05:31
Glucose 149 mg/dl (70-99) H 04/16/25 05:31
Troponins
04/14/25 04/14/25 04/15/25
19:28 23:06 03:35
Troponin I 0.058 H* 0.069 H* 0.118 H* D
04/15/25 04/15/25
07:27 11:48
Troponin I 0.134 H* 0.115 H*
Vital Signs and I&O:
Vital Signs
Temp Pulse Resp BP Pulse Ox
97.9 F 68 20 104/66 97
04/16/25 08:41 04/15/25 23:15 04/16/25 08:41 04/15/25 22:18 04/16/25 08:41
Vital Signs
Temp Pulse Resp BP Pulse Ox
97.9 F 68 20 104/66 97
04/16/25 08:41 04/15/25 23:15 04/16/25 08:41 04/15/25 22:18 04/16/25 08:41
Intake & Output
04/14/25 04/15/25 04/16/25 04/17/25
07:59 07:59 07:59 07:59
Intake Total 660 / 660
Balance 660 / 660
Physical Exam
Physical Exam
GEN: No distress, awake, alert, oriented x3
HEENT: supple, anicteric, mmm, EOMI
LUNGS: CTA bilaterally, no wheezes/rales
CV: Reg, S1/S2, no murmur
ABD: soft, BS+, NT/ND
EXT: No cyanosis, clubbing, edema
NEURO: Gross non-focal
SKIN: Warm, pink, dry. No rash. Right wrist site clean dry and intact
[2025-04-16] MEDS: LOW STRENGTH ASPIRIN 81 MG PO (09:45)
[2025-04-16] MEDS: PROTONIX 40 MG PO (09:45)
[2025-04-16] MEDS: METAMUCIL, KONSYL 1 PACKET PO (09:45)
--- NOTE | 2025-04-16 11:21 | W.PN.HOSP.TC ---
Today's Communication/Plan
-
preOP eval for CABG ongoing, plan for OR on 04/17/25
Assessment / Plan
Assessment / Plan
74yo M with PMHx of DM, HTN, HLD came with 3 episodes of transient pressure-like chest pain radiating to jaw and arms b/l. With elevated troponin - concern for NSTEMI. Cardiac cath found tripple vessel disease so w/u ongoing for CABG
A/P:
#NSTEMI
Heparin drip
ASA, statin, BB
Telemetry
serial Trop and EKG. Initial EKG in ED without ST elevation or TWI
Ntro SL
Card consult: ardiac cath showed Multivessel coronary artery disease involving the LAD, small to medium caliber nondominant left circumflex as well as a dominant RCA.
CTS: plan for CABG
TSH WNL
HgbA1c 7.4%
LDL 53
#DM type 2 with unspecified complications
Hold oral antiglycemic
Insulin SS, Accuchecks, DM diet
#Essential HTN
cont home meds
DVT ppx hep drip
full code
I have spent at least 36min reviewing chart, test results, communication with consultnats and providing direct patient care
Anticipated Discharge: > 48 hours
Subjective/Interval History
-
Date of Service: April 16, 2025
Objective Data
-
Labs:
Laboratory Results
04/16/25 04/16/25 04/16/25
00:19 05:31 13:15
PT 13.8
INR 1.00
APTT 34.3 59.3 H Pending
Sodium 133 L
Potassium 4.3
Chloride 103
Carbon Dioxide 23
BUN 19
Creatinine 0.7
Glucose 149 H
Calcium 9.7
Vital Signs:
Vital Signs
Temp Pulse Resp BP Pulse Ox
97.9 F 60 20 119/72 97
04/16/25 08:41 04/16/25 10:15 04/16/25 08:41 04/16/25 08:44 04/16/25 08:44
I&O
04/15/25 04/16/25 04/17/25
06:59 06:59 06:59
Intake Total 660 / 660
Balance 660 / 660
Review of Systems
-
History Source: Patient
All other systems: Reviewed and negative
Physical Exam
-
General: No Apparent Distress
Neuro: Awake, Alert, Oriented and AO x 3
Psych: Calm
[2025-04-16] MEDS: NOVOLOG FLEXPEN-LOW RESISTANCE SC (11:41)
--- NOTE | 2025-04-16 11:55 | PTCARENOTE ---
Assumed care. Patient denies pain or shortness of breath. NSR, VSS, heparin gtt infusing per MAR, call serrano in reach
--- NOTE | 2025-04-16 12:14 | W.PN.UPDATE ---
Update Note
Progress Note Update
STS RISK SCORE
Procedure Type:�Isolated CABG
Perioperative Outcome Estimate %
Operative Mortality 0.82%
Morbidity & Mortality 4.35%
Stroke 0.77%
Renal Failure 0.454%
Reoperation 2.41%
Prolonged Ventilation 2.2%
Deep Sternal Wound Infection 0.105%
Long Hospital Stay (>14 days) 2.44%
Short Hospital Stay (<6 days)* 63.1%
Clinical Summary
Planned Surgery: Isolated CABG, Urgent, First cardiovascular surgery
Demographics: 74 year old, male, 71.1kg, 178cm, BMI: 22.4 kg/m�
Lab Values: Creatinine: 0.6 mg/dL, Hematocrit: 45.2%, WBC Count: 6.5 10�/�L, Platelet Count: 659945 cells/�L
Substance Abuse: Current smoker, Alcohol use: 2-7 drinks/week
Risk Factors / Comorbidities: Diabetes Mellitus , Liver Disease, Hypertension
Cardiac Status: NYHA Class II, Ejection Fraction = 57%
Coronary Artery Disease: 3 vessels diseased, Proximal LAD Stenosis >=70%, Non-ST Elevation IL, IL: 1 to 7 Days
Valve Disease: Trivial/Trace MR
[2025-04-16 13:16] LABS: Glucose - Point of Care 174 mg/dl (70-99)
[2025-04-16] MEDS: NOVOLOG FLEXPEN-LOW RESISTANCE 1 UNITS SC ×2 (13:29→17:48)
[2025-04-16] MEDS: ZEBETA 5 MG PO (13:32)
--- NOTE | 2025-04-16 14:08 | CM ---
Chart reviewed. Reviewed preoperative and postoperative instructions and restrictions, along with showering guidelines. Gave patient Cardiac Surgery Book. Patient is agreeable to a home visit by CT Transitional RN. Patient is independent of
ADLS, lives with his in a 1 STH, 1 SARAH, 0 DME. Plan is for the patient to return home with CT Transitional RN. CM to follow
[2025-04-16 14:34] LABS: APTT 69.2 Sec (23.4-35.0)
[2025-04-16] MEDS: LIPITOR 40 MG PO (17:42)
[2025-04-16 17:51] LABS: Glucose - Point of Care 150 mg/dl (70-99)
[2025-04-16 20:31] LABS: Hepatitis C Antibody Reactive (Negative)
[2025-04-16 21:29] LABS: APTT 86.0 Sec (23.4-35.0)
[2025-04-16] MEDS: TRICOR 145 MG PO (21:55)
[2025-04-17] VITALS (16 sets, daily range): BP systolic 80–134; BP diastolic 56–96; BMI 21.9
[2025-04-17 03:16] LABS: Hematocrit 40.9 % (39.0-52.0); Hemoglobin 14.0 g/dL (13.0-18.0); Mean Corp Hgb Conc. 34.2 g/dL (33.0-37.0); Mean Corpuscular Volume 91.7 fL (80.0-94.0); Platelet Count 220 10^3/uL (130-400); Red Cell Dist. Width 12.2 % (11.5-14.5)
[2025-04-17 04:02] LABS: APTT 136.4 Sec (23.4-35.0)
[2025-04-17 07:19] LABS: ACT+ - POC 137 Seconds (82-134)
[2025-04-17 08:02] LABS: Urine Character Clear (Clear)
[2025-04-17 08:57] LABS: Urine Squamous Cell 0-2 /LPF (Few)
[2025-04-17 09:05] LABS: ACT+ - POC 493 Seconds (82-134)
--- NOTE | 2025-04-17 09:17 | W.PN.UPDATE ---
Update Note
Progress Note Update
Patient went to OR in AM and was not seen. CTS planning to transfer under their service afterwards. Discussed with CTX need to follow up on HepC Ab positive test (GI consult and HepC PCR quantitative) and to remove sutures on forehead after Mohs
surgery
[2025-04-17 09:22] LABS: B.E. - POC -2.1 mmol/L; Glucose - POC 151 mg/dl (70-99); HCO3 - POC 23 mmol/L (21-28); Hematocrit - POC 39 % PCV (42-52); Hemodilution- POC Yes; Hemoglobin Calculated - POC 13.3; Ionized Calcium - POC 1.27 mmol/L (1.15-1.33); Lactate - POC 0.52 mmol/L (0.36-0.75); O2 Saturation %Calculated-POC 99.9 % (94-98); PCO2 - POC 41 mmHg (35-48); PO2 - POC 288 mmHg (83-108); POC Comment PRE; Potassium - POC 3.7 mmol/L (3.5-5.1); Sodium - POC 136 mmol/L (136-145); Specimen Type - POC Venous; pH - POC 7.36 (7.35-7.45)
[2025-04-17 09:29] LABS: ACT+ - POC 549 Seconds (82-134)
[2025-04-17 09:43] LABS: B.E. - POC 4.1 mmol/L; Glucose - POC 162 mg/dl (70-99); HCO3 - POC 30 mmol/L (21-28); Hematocrit - POC 30 % PCV (42-52); Hemodilution- POC Yes; Hemoglobin Calculated - POC 10.4; Ionized Calcium - POC 1.03 mmol/L (1.15-1.33); Lactate - POC 0.54 mmol/L (0.36-0.75); O2 Saturation %Calculated-POC 100.0 % (94-98); PCO2 - POC 47 mmHg (35-48); PO2 - POC 398 mmHg (83-108); POC Comment CPB; Potassium - POC 4.1 mmol/L (3.5-5.1); Sodium - POC 136 mmol/L (136-145); Specimen Type - POC Venous; pH - POC 7.41 (7.35-7.45)
[2025-04-17 09:56] LABS: ACT+ - POC 546 Seconds (82-134)
[2025-04-17 10:07] LABS: B.E. - POC 1.7 mmol/L; Glucose - POC 140 mg/dl (70-99); HCO3 - POC 25 mmol/L (21-28); Hematocrit - POC 32 % PCV (42-52); Hemodilution- POC Yes; Hemoglobin Calculated - POC 10.7; Ionized Calcium - POC 1.06 mmol/L (1.15-1.33); Lactate - POC 1.01 mmol/L (0.36-0.75); O2 Saturation %Calculated-POC 100.0 % (94-98); PCO2 - POC 34 mmHg (35-48); PO2 - POC 370 mmHg (83-108); POC Comment CPB; Potassium - POC 3.7 mmol/L (3.5-5.1); Sodium - POC 137 mmol/L (136-145); Specimen Type - POC Arterial; pH - POC 7.48 (7.35-7.45)
--- NOTE | 2025-04-17 10:10 | CM ---
Reviewed chart. Mr. Lund is in the operating room today. Prior to admission he resides with his spouse in a one story home with one step to enter. Prior to admission he was independent with ambulation and adls. He does not have any DME. He has
never needed VNA services or SNF/Rehab. He has a prescription plan and uses [facility]. Medical work-up in progress. The discharge plan is to return home with his spouse and a home visit by the Transitional Care Nurse when medically stable.
[2025-04-17 10:13] LABS: ACT+ - POC 478 Seconds (82-134)
[2025-04-17 10:29] LABS: ACT+ - POC 649 Seconds (82-134)
[2025-04-17 10:33] LABS: B.E. - POC 1.9 mmol/L; Glucose - POC 106 mg/dl (70-99); HCO3 - POC 25 mmol/L (21-28); Hematocrit - POC 30 % PCV (42-52); Hemodilution- POC Yes; Hemoglobin Calculated - POC 10.1; Ionized Calcium - POC 1.08 mmol/L (1.15-1.33); Lactate - POC 1.68 mmol/L (0.36-0.75); O2 Saturation %Calculated-POC 99.9 % (94-98); PCO2 - POC 35 mmHg (35-48); PO2 - POC 296 mmHg (83-108); POC Comment CPB; Potassium - POC 3.7 mmol/L (3.5-5.1); Sodium - POC 139 mmol/L (136-145); Specimen Type - POC Arterial; pH - POC 7.47 (7.35-7.45)
[2025-04-17 10:42] LABS: ACT+ - POC 515 Seconds (82-134)
[2025-04-17 10:53] LABS: ACT+ - POC 551 Seconds (82-134)
[2025-04-17 11:23] LABS: B.E. - POC -0.3 mmol/L; Glucose - POC 108 mg/dl (70-99); HCO3 - POC 24 mmol/L (21-28); Hematocrit - POC 31 % PCV (42-52); Hemodilution- POC Yes; Hemoglobin Calculated - POC 10.5; Ionized Calcium - POC 1.09 mmol/L (1.15-1.33); Lactate - POC 2.04 mmol/L (0.36-0.75); O2 Saturation %Calculated-POC 99.9 % (94-98); PCO2 - POC 37 mmHg (35-48); PO2 - POC 297 mmHg (83-108); POC Comment WARM; Potassium - POC 4.2 mmol/L (3.5-5.1); Sodium - POC 139 mmol/L (136-145); Specimen Type - POC Arterial; pH - POC 7.42 (7.35-7.45)
[2025-04-17 11:27] LABS: ACT+ - POC 126 Seconds (82-134)
[2025-04-17 11:31] LABS: B.E. - POC -2.2 mmol/L; Glucose - POC 156 mg/dl (70-99); HCO3 - POC 24 mmol/L (21-28); Hematocrit - POC 28 % PCV (42-52); Hemodilution- POC Yes; Hemoglobin Calculated - POC 9.6; Ionized Calcium - POC 1.35 mmol/L (1.15-1.33); Lactate - POC 1.67 mmol/L (0.36-0.75); O2 Saturation %Calculated-POC 99.9 % (94-98); PCO2 - POC 44 mmHg (35-48); PO2 - POC 291 mmHg (83-108); POC Comment POST; Potassium - POC 4.0 mmol/L (3.5-5.1); Sodium - POC 139 mmol/L (136-145); Specimen Type - POC Arterial; pH - POC 7.34 (7.35-7.45)
--- NOTE | 2025-04-17 11:51 | W.CVOR.SURPR ---
CVOR Surgeon Immed Pre Op
-
I have examined this patient prior to performance of the scheduled procedure.
The patient's condition is unchanged from the time of the dictated/written History and
Physical and the patient is able to undergo the scheduled procedure.
--- NOTE | 2025-04-17 11:51 | W.IMMPOSTOP ---
Addendum entered and electronically signed by Ascencion Smith MD 04/17/25 12:49:
[id number]
Original Note:
Surgical Immed Post Op Note
-
CARDIAC SURGERY OPERATIVE NOTE:
Preoperative Dx:
MVCAD
NSTEMI
HTN
HLD
DM II
Postoperative Dx:
Same
Procedures:
1) Median sternotomy
2) Takedown of HERMES
3) Endoscopic harvest/prep of RLE GSV
4) CABG x 3 (HERMES to LAD, GSV to OM1, GSV to RPDA)
5) ELAA (40mm AtriClip)
Surgeon:
Ascencion Smith M.D.
Assistants:
Alli LindquistARola-CRola; assistant professor of marine biology throughout
Blayne Saldana P.A.-C.; endoscopic harvest/prep of RLE GSV
Anesthesia:
Niko Sanches M.D. and Mitzy Garcia.R.N.A.
Perfusion:
James AlexandreP.; XC: 65min, CPB 101min
Findings:
HERMES was a healthy vessel w/ brisk blood flow but slightly smaller than typical ELD: 2.25mm
GSV was healthy conduit w/ ELD 3.0-3.75mm
LAD was visible on the epicardial surface, moderate scattered calcifications, ELD 2.25mm at midpoint anastomosis. Brisk blood flow observed filling LAD and backfilling major diagonal when bulldog clamp was released
OM1 was initially visible as it exited the AV groove, it than took a shallow intramyocardial course (under approximately 1mm of myocardium). Anastomosis performed in intramyocardial segment. Normal menezes. ELD 2.75mm
RPDA was visible on the epicardial surface w/ moderate scattered calcification. ELD 2.75mm
SARAH w/ windsock morphology - successfully occluded at its base w/ 40mm AtriClip
Post-SELENA: See anesthesia report.
Implants:
Epicardial bipolar pacing wire x 1
AtriClip 40mm [id number], LOT [id number]
Sternal wires x 7
Sternal 'X' plate w/ 4 - 12mm and 4 - 10mm screws
Sternal 'Square' plate w/ 4 - 10mm screws
Transfusions:
None
Complications:
None
Condition:
69 sinus (-0.1/-0.4); 107/56, CVP 17, pO2 296 @ 60% FiO2, SpO2 not reading well, but still > 93%
GTTS: levophed 1, insulin 1, precedex 0.5
Stable/guarded to CVICU
--- NOTE | 2025-04-17 12:10 | PN.DE.MGMTRT ---
Insulin Management
- -
04/17/2025: Diabetes Management Consult
74 year old male admitted 04/14/25 for exertional chest pain. PMH: Nicotine use, HTN, HLD, CAD Mohs procedure 04/10/25 and T2DM. Presented to the hospital with 3 episodes of transient pressure-like chest pain radiating to jaw and arms b/l R/I for
NSTEMI. Left heart cath reported tripple vessel coronary disease--> CABG. Was taking Farxiga 10mg daily and Ozempic 1mg Q Sunday. A1C 7.4%, Cr 0.6, eGFR >60
Now POD 0 s/p CABG x5. Pt is intubated and sedated, unable to interview, no family at bedside. All information and hx obtained from chart review.
Currently on glycemic protocol, blood sugar is stable 164 requiring 4 units of insulin/hr.
Cont insulin infusion postoperatively x 48 hrs. Will reassess readiness to transition off insulin infusion to her outpatient regimen on POD 2
Will cont to follow
Diabetes History
- -
Type of Diabetes: 2
Pre-Admission Diabetes Regimen
Lab Results
Hemoglobin A1c 7.4 % (4.0-5.6) H 04/15/25 07:27
Insulin Pump Settings
IP Diabetes Regimen
04/16/25 04/16/25
13:15 17:47
POC Glucose 174 H 150 H
Meal type: Dinner
Meal type: Dinner
Meal type: Lunch
Amount consumed: 75%
Amount consumed: 100%
Amount consumed: 100%
Patient Education
--- NOTE | 2025-04-17 12:32 | W.PN.UPDATE ---
Update Note
Progress Note Update
74 year old male was admitted 04/14/25 for exertional chest pain, R/I for NSTEMI. Left heart cath reported trop;e vessel coronary disease
IV fluids: 1400
U.O.:� 700
Blood:� none
Wires:� V-wires
Drips: Precedex, Insulin
�
NEURO: sedated, pupils +2mm B/L
RESP: #8OT @23cm> 500/40%/14/5. Lungs clear B/L. 2 mediastinal (30cc on arrival) and R/L pleural (5cc on arrival) chest tubes to -20cm suction. Sanguineous drainage
CV: RRR +S1, S2, no S3, no�rub, no murmur. Dermabond to median sternotomy. RIJ w/Slik
ABD: round, soft, no BS
EXT: no edema, +2/4 DP pulses B/L, no femoral bruit, RLE RADHA wrap intact; left radial A-line intact
: Villalta with clear yellow urine
�
A/P: POD #0 s/p CABG x 3 (HERMES to LAD, GSV to OM1, GSV to RPDA), ELAA (40mm AtriClip)
SELENA: report pending
- wean and extubate
- keep SBP 90-130
# CAD
- will require ASA, Plavix, statin, beta homero
�
# acute surgical blood loss anemia-expected
- trend CBC
�
# T2DM (A1C 7.4)
- insulin infusion x 48h
- on Ozempic, Farxiga at home
- consult to diabetes nurser practitioner
�
# Recent Mohs procedure right forehead
- sutures removed in the OR
# Hx Hepatitis C
- HCV-RCA result from 04/16 pending
[2025-04-17 12:34] LABS: Glucose - Point of Care 164 mg/dl (70-99)
[2025-04-17 12:45] LABS: B.E. -2.4 mmol/L; HCO3 23.7 mmol/L (21-28); O2 Saturation % 96.6 % (94-98); PCO2 45 mmHg (35-48); PO2 79 mmHg (83-108); Potassium 3.8 mMOL/L (3.5-5.1); Sodium 139 mMOL/L (136-145)
[2025-04-17 12:55] LABS: INR 1.36; PT 17.0 Sec (11.4-14.6)
[2025-04-17 12:56] LABS: APTT 29.1 Sec (23.4-35.0)
[2025-04-17 13:07] LABS: Blood Urea Nitrogen 16 mg/dl (9-20); Estimated Creatinine Clearance 107 ml/min; Glucose 167 mg/dl (70-99); Magnesium 3.0 mg/dl (1.6-2.3)
[2025-04-17] MEDS: KCL 50 IV ×2 (13:10→14:06)
[2025-04-17] MEDS: NSS 500 IV (13:10)
[2025-04-17] MEDS: NOVOLOG FLEXPEN SC ×2 (13:10→15:31)
[2025-04-17] MEDS: NEURONTIN PO ×2 (13:11→15:31)
[2025-04-17] MEDS: ANCEF 10 IV ×2 (13:12)
[2025-04-17 13:13] LABS: Hematocrit 36.1 % (39.0-52.0); Hemoglobin 12.5 g/dL (13.0-18.0); Platelet Count 114 10^3/uL (130-400)
[2025-04-17 13:17] LABS: Glucose - Point of Care 234 mg/dl (70-99)
[2025-04-17] MEDS: METAMUCIL, KONSYL PO (13:19)
[2025-04-17] MEDS: PROTONIX PO (13:19)
[2025-04-17] MEDS: LOW STRENGTH ASPIRIN PO (13:19)
[2025-04-17] MEDS: NOVOLOG FLEXPEN-LOW RESISTANCE SC ×2 (13:19)
--- NOTE | 2025-04-17 13:24 | PTCARENOTE ---
Patient received from CVOR at 1230; Sedated and intubated; SR with 1st AVB rhythm on monitor; VSS; Friction rub present; Epicardial V wire present with temporary pacemaker settings VVI 30/10/2.0; +2 DP and radial pulses present; Lungs diminished at
bases; ETT size 8 positioned and secured at 22 cm right lip; Ventilator settings SIMV 14/500/5/5 FiO2 40%; CTx4 to -20 cm wall suction draining bloody drainage - no air leak, tidaling, or crepitus noted; Hypoactive BS; Villalta catheter in place
draining clear, yellow urine; Sternal midline incision covered with Aquacel - scant amount of drainage, Right groin puncture site glued, approximated, and covered with RADHA Wrap, Right leg wrapped in RADHA wrap - CDI; Left radial A-line in place, SLIC
present in RIJ Cordis - all lines zeroed and leveled; PIVx2; Levo, insulin, and precedex infusing - see nursing flowsheets for further details; K repleted x2; see nursing documentation for further details.
[2025-04-17 14:05] LABS: Glucose - Point of Care 155 mg/dl (70-99)
--- NOTE | 2025-04-17 14:40 | PTCARENOTE ---
RT in room and patient placed on CPAP trial at 1435; EPOC ABG due at 1505
--- NOTE | 2025-04-17 15:10 | CON.INTV ---
Consultation
Consultation Request
Date/Time Consultation Requested: 04/17/2025
Date/Time Consultation Performed: 04/17/2025
Medical History
-
Chief Complaint: Chest pain
History of Present Illness:
Patient is a 74-year-old gentleman who had initially presented to emergency room 2 days ago with chest pain. Patient was noted to have elevated troponin and was diagnosed with non-ST elevation NC. Patient was managed with antiplatelets as well as
heparin infusion. Cardiology service evaluated the patient and a coronary angiogram was pursued which showed multivessel coronary artery disease. CT surgery service was subsequently consulted and a coronary artery bypass graft surgery was
recommended. Patient had coronary artery bypass graft performed on 04/17 and postprocedure was admitted to CVICU. Senior Advisory consultation was requested for further input.
Past Medical History
Past Medical History: Reports GERD, HTN and Hypercholesterolemia
Past Surgical History: Reports Bowel Resection (Pressure colectomy secondary to diverticulitis) and Other (Mohs surgery, )
Social History
Tobacco: Smoker
Alcohol: Occasional
Drug: None
Personal:
Family History
Family History: Not pertinent
Allergies / Home Medications
Allergies / Home Medications
Allergies
Allergy/AdvReac Type Severity Reaction Status Date / Time
No Known Allergies Allergy Verified 04/14/25 23:01
Home Medications
�Medication �Instructions �Recorded �Confirmed �Last Taken �Type
atorvastatin 10 mg tablet (Lipitor) 5 mg PO QPM High Cholesterol 04/14/25 04/17/25 04/13/25 17:00 History
1
bisoprolol 5 1 tab PO DAILY@1200 Blood Pressure 04/14/25 04/17/25 04/13/25 12:00 History
mg-hydrochlorothiazide 6.25 mg 1
tablet
dapagliflozin propanediol 10 mg 10 mg PO DAILY Diabetes 04/14/25 04/14/25 04/13/25 09:00 History
tablet (Farxiga) 1
diazepam 5 mg tablet 5 mg PO DAILY PRN anxiety 04/14/25 04/14/25 Unknown History
esomeprazole magnesium 20 mg 20 mg PO BID Gastrointestinal Issue 04/14/25 04/14/25 04/13/25 18:00 History
capsule,delayed release (Nexium) 1
fenofibrate nanocrystallized 145 145 mg PO HS High Cholesterol 04/14/25 04/14/25 04/12/25 23:00 History
mg tablet (Tricor) 1
lisinopril 2.5 mg tablet 2.5 mg PO DAILY Blood Pressure 04/14/25 04/14/25 04/12/25 23:00 History
1
semaglutide 1 mg/dose (4 mg/3 mL) 1 mg SC SA Diabetes 04/14/25 04/17/25 04/11/25 History
subcutaneous pen injector (Ozempic) 1
valacyclovir 500 mg tablet 1,000 mg PO SUWE Infection 04/14/25 04/17/25 04/12/25 History
1
psyllium 1 packet PO DAILY Gastrointestinal 04/15/25 04/15/25 04/14/25 History
Issue
Review of Systems
-
Unable to Obtain full review of systems at this time due to: Other (Still bit sedated, wakes up with stimulation. Appears comfortable )
Vitals / Labs / Diagnostic Testing
Vital Signs
Temp Pulse Resp BP Pulse Ox
98.8 F 80 15 103/77 100
04/17/25 15:00 04/17/25 15:00 04/17/25 15:00 04/17/25 13:15 04/17/25 15:00
Lab Data
04/17/25 12:32
Laboratory Results
04/16/25 04/17/25 04/17/25
20:59 03:04 12:32
PT 17.0 H
INR 1.36
APTT 86.0 H 136.4 H 29.1
pH 7.33 L
pCO2 45
pO2 79 L
HCO3 23.7
O2 Delivery Level
Diagnostic Testing:
Physical Exam
-
HEENT: Normocephalic
Cardiovascular: S1/S2
Respiratory: Clear and Non-Labored Respirations
GI: Soft and Non Distended
Neurology: Other (Drowzy, wakes up with stimulation )
Skin: Warm
General: Comfortable
Assessment
-
74 y/o gentleman admitted with chest pain noted to have non-ST elevation NC. Additional workup suggestive of multivessel coronary artery disease, s/p coronary artery bypass grafting and left atrial appendage exclusion POD # 0
Titrate off pressors per protocol, currently on levo of 2, dobutamine. MAP of 68.
ECHO reviewed with normal function
Management of chest tubes per primary service
Patient extubated, currently saturating 97% on 5 L supplemental oxygen. Work of breathing normal. No respiratory distress noted.
CXR x-ray with questionable skinfold versus small left pneumothorax. No airleak noted in the chest tube.
Prior PFTs reviewed. No known history of lung disease
Can add nebulizers if needed
Aspiration precautions
Encouraged incentive spirometry, OOB/ambulation/early mobility
Advance diet as tolerated following extubation
GI prophylaxis: Protonix
Monitor critical I/O's
Villalta/chest tube output
Hb/platelets postoperatively, mild drift
Trend CBC for now
Can transfuse if indicated for Hb <7, plt <50 in surgical patients
DVT prophylaxis including SCDs
Insulin protocol initiated and ongoing
Transition to SQ/off as indicated per team
Other medical diagnoses:
- HTN
- DM
- HLD
- CAD, NSTEMI & CABG (04/2025)
Critical Care time [61] mins -- The patient is admitted for acute critical illness for the treatment of vital organ failure and/or prevention of further life-threatening conditions. Total care includes time spent in review of history, physical exam,
medications, hemodynamic/ventilator parameters, laboratory data, imaging and discussion with house staff, pharmacy, respiratory therapy, regenerator operator, and nursing
Data:
CXR 04/2025: Skinfold versus pleural edge within the left apex which could signify a small pneumothorax. Attention on follow-up imaging recommended.
C 04/2025: 1. Multivessel coronary artery disease involving the LAD, small to medium caliber nondominant left circumflex as well as a dominant RCA.
2. LVEDP of 11 mmHg.
ECHO 04/2025: 1. Left ventricle is small in size. There is normal systolic function. No regional wall motion abnormalities are seen. Mild concentric left ventricular hypertrophy. Left ventricular ejection fraction is 55-60% by volumetric
assessment. Normal diastolic function.
2. Right ventricular size and systolic function are within normal limits.
3. Thickened mitral leaflets with adequate leaflet excursion. Moderate mitral annular calcification. Chordal systolic anterior motion. Trace mitral regurgitation.
4. There are no prior studies available for comparison.
CT Chest 04/2025: 1. Severe coronary arterial calcification, consistent with the patient's history of coronary artery disease.
2. Mild mitral valvular calcification.
3. Minimal bibasilar subsegmental atelectasis, otherwise clear lungs.
4. Diffuse fatty infiltration of the liver.
Spirometry 04/2025: FEV1/FVC was 72%
FEV1 was 2.49L or 81% of predicted.
FVC was 3.48L or 84% of predicted.
The flow volume appears somewhat restricted.
No significant airflow obstruction by ATS criteria. Mildly decreased FEV1/FVC may suggest some restriction.
[2025-04-17 15:27] LABS: Glucose - Point of Care 101 mg/dl (70-99)
[2025-04-17 15:31] LABS: B.E. -1.9 mmol/L; HCO3 22.2 mmol/L (21-28); O2 Saturation % 99.6 % (94-98); PCO2 35 mmHg (35-48); PO2 169 mmHg (83-108); Potassium 5.2 mMOL/L (3.5-5.1); Sodium 139 mMOL/L (136-145)
[2025-04-17] MEDS: PACERONE PO ×2 (15:31→22:22)
[2025-04-17] MEDS: CALCIUM GLUCONATE 100 IV (15:46)
[2025-04-17] MEDS: OFIRMEV 100 IV (15:55)
[2025-04-17 16:05] LABS: Glucose - Point of Care 103 mg/dl (70-99)
[2025-04-17] MEDS: LOW STRENGTH ASPIRIN 81 MG PO (16:06)
--- NOTE | 2025-04-17 16:18 | W.PN.CARDCBS ---
Addendum entered and electronically signed by Valentin Zaldivar MD 04/17/25 16:52:
I saw and examined the patient.
The Loan Processing Supervisor's note was reviewed and I agree with the note.
Comment: Briefly, 74-year-old man past medical history of multivessel CAD presented with NSTEMI and underwent CABG x 3 earlier today.
At the time of my evaluation he was resting comfortably in the CVICU and had just been extubated
Requiring low dose norepinephrine for pressor support
Warm and well-perfused on exam
Filling pressures are reasonable based on invasive hemodynamics
Maintaining sinus rhythm on review of telemetry
Agree with current cardiac meds�aspirin/Plavix, high intensity statin, beta-homero
Rest per Mandy Rivas
Original Note:
Today's Communication / Plan
-
cont postop care
Impression / Plan
-
Primary Power Plant Operators Supervisor: Dr. Funes
Imp:
Status post CABG x 3 (VAZQUEZ to LAD, GSV to OM1, GSV to RPDA) and SARAH clip, 40 mm AtriClip 04/17/2025
Presentation with CP
NSTEMI
Multivessel CAD on cardiac cath 04/15/2025
Severe coronary calcification noted by lung CT 02/2025
HTN
HLD
DM2
Mohs surgery 04/10/25
ongoing tobacco use
ECHO 08/26/24: EF 64%, mild cLVH, aortic sclerosis, PAP 23 mmHg
Lexiscan nuclear stress test 09/01/24: small basal inferior and mid inferior defect, fixed without evidence of ischemiam EF 63%.
Echo 04/15/25: EF 55 to 60%, mild concentric LVH, moderate MAC, trace MR
Cardiac cath 04/15/2025: Multivessel disease. Proximal LAD with 85 to 90% stenosis. Left circumflex ostial 80% stenosis, ostial OM1 75% stenosis. RCA mid 70% stenosis, distal 90% stenosis. RPDA proximal 50 to 60% stenosis. RPL branch small
caliber with ostial 50% stenosis
Plan:
-s/p CABG x3 and SARAH clip 04/17/2025
-no blood products required
-extubated, on 4L
-on Levo 4mcg/min
-telem personally reviewed: NSR
-cont ASA, Plavix, statin, Metoprolol
-on post op Amio
-goal LDL <55, LDL 53 04/15
-was bisoprolol in OP setting, transitioned to Metoprolol
-sutures from recent Mohs surgery on forehead removed in OR
-will continue to follow post operatively
Progress Note - Power Plant Operators Supervisor
Subjective
Date of Service: April 17, 2025
post op CABG x 3
extubated
Objective
Labs:
04/17/25 12:32
Labs
Hgb 12.5 g/dL (13.0-18.0) L 04/17/25 12:32
Hct 36.1 % (39.0-52.0) L 04/17/25 12:32
Plt Count 114 10^3/uL (130-400) L D 04/17/25 12:32
PT 17.0 Sec (11.4-14.6) H 04/17/25 12:32
INR 1.36 04/17/25 12:32
APTT 29.1 Sec (23.4-35.0) 04/17/25 12:32
Sodium 133 mmol/L (135-145) L 04/16/25 05:31
Potassium 4.3 mmol/L (3.5-5.1) 04/16/25 05:31
BUN 16 mg/dl (9-20) 04/17/25 12:32
Creatinine 0.6 mg/dL (0.7-1.3) L 04/17/25 12:32
Glucose 167 mg/dl (70-99) H 04/17/25 12:32
Troponins
04/14/25 04/14/25 04/15/25
19:28 23:06 03:35
Troponin I 0.058 H* 0.069 H* 0.118 H* D
04/15/25 04/15/25
07:27 11:48
Troponin I 0.134 H* 0.115 H*
Vital Signs and I&O:
Vital Signs
Temp Pulse Resp BP Pulse Ox
99.7 F 76 18 106/78 99
04/17/25 16:00 04/17/25 16:00 04/17/25 16:00 04/17/25 16:00 04/17/25 16:00
Vital Signs
Temp Pulse Resp BP Pulse Ox
99.7 F 76 18 106/78 99
04/17/25 16:00 04/17/25 16:00 04/17/25 16:00 04/17/25 16:00 04/17/25 16:00
Intake & Output
04/15/25 04/16/25 04/17/25 04/18/25
06:59 06:59 06:59 06:59
Intake Total 660 / 660 1054 / 1054 459.5 / 459.5
Output Total 1490 / 1490
Balance 660 / 660 1054 / 1054 -1030.5 / -1030.5
Physical Exam
Physical Exam
GEN: post op, on O2
HEENT: supple, anicteric, mmm
LUNGS: no wheezes/rales
CV: + rub, RRR,S1/S2, no murmur
ABD: soft, BS+, NT/ND
EXT: No edema
NEURO: Gross non-focal
SKIN:surgical incisions w/ drsg
--- NOTE | 2025-04-17 16:22 | PTCARENOTE ---
ABG's reviewed; RT at bedside; Patient extubated at 1530 and placed on 6L NC; IS 1000 ml; IV Ofirmev given for pain with good effect
[2025-04-17 16:28] LABS: Hematocrit 36.5 % (39.0-52.0); Hemoglobin 12.7 g/dL (13.0-18.0); Platelet Count 176 10^3/uL (130-400)
[2025-04-17 17:06] LABS: Glucose - Point of Care 120 mg/dl (70-99)
[2025-04-17] MEDS: DILAUDID 0.5 MG IV ×2 (17:33→22:09)
[2025-04-17] MEDS: LIPITOR PO (17:46)
[2025-04-17 18:03] LABS: Glucose - Point of Care 102 mg/dl (70-99)
[2025-04-17] MEDS: LR 250 ML IV (18:10)
[2025-04-17] MEDS: ANCEF 5 IV (18:22)
[2025-04-17] MEDS: DILAUDID 0.25 MG IV (19:02)
--- NOTE | 2025-04-17 19:30 | PTCARENOTE ---
assumed care of patient @ 1900. received pt laying in bed, aox3. NSR on tele HRs 60s-70s, 1st degree AVB. BP stable on 1 of levo. CVP 8-10. Loud rub auscultated. V wire insulated. Lungs clear, diminished in the bases satting mid 90s on 4L. CTx4 to
wall suction no air leak, tidaling or crepitus noted. Belly hypo, tolerating ice chips. valles present draining clear yellow urine. Sternal aquacel with scant old drainage. R groin and R leg sites CDI with hannah wrap present. R IJ cordis with SLIC, L
radial a line, PIV x2 all patent. central lines zeroed, flushed. Recieved on insulin per protocol, levo at 1. .25 diluadid given at shift change for pain. pt resting with call serrano within reach .
[2025-04-17 20:01] LABS: Glucose - Point of Care 106 mg/dl (70-99)
[2025-04-17] MEDS: ROXICODONE 5 MG PO (20:11)
[2025-04-17] MEDS: LOPRESSOR PO (20:12)
[2025-04-17] MEDS: SENOKOT 8.6 MG PO (20:12)
[2025-04-17] MEDS: BACTROBAN 2% OINTMENT 1 APPLIC NASAL (20:13)
[2025-04-17 22:00] LABS: Glucose - Point of Care 128 mg/dl (70-99)
[2025-04-17] MEDS: NEURONTIN 100 MG PO (22:08)
[2025-04-17] MEDS: TRICOR PO (22:22)
[2025-04-17] MEDS: TYLENOL PO (22:22)
[2025-04-18] VITALS (29 sets, daily range): BP systolic 88–145; BP diastolic 50–89; PULSE 74; O2SAT 100; BMI 22.2
[2025-04-18] LABS: Glucose - Point of Care 118 mg/dl (70-99)
--- NOTE | 2025-04-18 | PTCARENOTE ---
no change in patient assessment, resting with call serrano within reach .
[2025-04-18 02:01] LABS: Glucose - Point of Care 110 mg/dl (70-99)
[2025-04-18] MEDS: DILAUDID 0.5 MG IV (02:03)
[2025-04-18] MEDS: ANCEF 5 IV ×2 (02:04→12:21)
[2025-04-18 02:26] LABS: HCV Quant by NAAT IU/mL Not Detected; HCV Quant by NAAT Interp Not Detected (Not Detected); HCV Quant by NAAT Log IU/mL Not Detected log IU/mL
[2025-04-18 02:57] LABS: Hematocrit 33.9 % (39.0-52.0); Hemoglobin 11.6 g/dL (13.0-18.0); Mean Corp Hgb Conc. 34.2 g/dL (33.0-37.0); Mean Corpuscular Volume 94.7 fL (80.0-94.0); Platelet Count 163 10^3/uL (130-400); Red Cell Dist. Width 12.4 % (11.5-14.5)
[2025-04-18 03:13] LABS: Blood Urea Nitrogen 18 mg/dl (9-20); Calcium 8.3 mg/dl (8.4-10.2); Carbon Dioxide 23 mmol/L (22-30); Chloride 113 mmol/L (98-107); Estimated Creatinine Clearance 107 ml/min; Glucose 98 mg/dl (70-99); Magnesium 2.0 mg/dl (1.6-2.3); Potassium 4.5 mmol/L (3.5-5.1); Sodium 141 mmol/L (135-145); eGFR > 60.00
[2025-04-18] MEDS: ROXICODONE 5 MG PO (04:00)
--- NOTE | 2025-04-18 04:04 | W.PN.CT ---
Today's Communication / Plan
-
-pod #1
-no issues overnight
-drips: Insulin.
-CT outputs: 2 meds 40/205, 2 pleur 105/355
-delined
-d/c Villalta
-continue insulin
-current meds (ASA, Plavix, Lipitor, Tricor, Lopressor, Amio, Protonix)
-encourage IS, OOB
Assessment / Plan
-
- NSTEMI/mv-CAD - s/p CABG x 3 (HERMES to LAD, GSV to OM1, GSV to RPDA); ELAA (40mm AtriClip) on 04/17/25, pod #1
- HTN
- HLD
- DM II
- Hep C-remote
- Current tobacco use
- Mohs procedure R forehead 04/10/25
- BPH
- Acute postop blood loss anemia - stable
- Acute postop thrombocytopenia
- Acute postop atelectasis
- Acute postop hypovolemia with subsequent hypervolemia
- Suspected acute postop pericarditis/+rub
Discussed patient care with: Nursing and Care Team
Subjective
-
Date of Service: April 18, 2025
Objective Data
-
Lab Results
04/18/25 02:16
04/18/25 02:16
PT 17.0 Sec (11.4-14.6) H 04/17/25 12:32
INR 1.36 04/17/25 12:32
APTT 29.1 Sec (23.4-35.0) 04/17/25 12:32
Vital Signs
Vital Signs
Temp Pulse Resp BP Pulse Ox
98.9 F 65 11 124/62 99
04/18/25 02:00 04/18/25 02:30 04/18/25 02:30 04/18/25 02:00 04/18/25 02:30
CT Intake/Output/Weight
04/17/25 04/17/25 04/18/25
06:59 18:59 06:59
Intake Total 362 / 1054 1018.1 / 1207.1 189.0 / 1207.1
Output Total 164 / 8 393 / 2037
Balance 362 / 1054 -626.9 / -830.9 -204.0 / -830.9
SaO2: 99
Physical Exam
-
General: Awake and AOx3
Cardiovascular: Regular rate & rhythm, No Murmurs and Rub
Respiratory: Decreased Breath Sounds
Sternum: Stable
Incision: Clean, Dry and Intact
Extremities: No Edema (1+DPs b/l)
Abdomen: soft, nontender, nondistended, + decreased bowel sounds
Data Reviewed
-
Lab Results: Results Reviewed
Medications: Active Meds Reviewed
Chest X-Ray: Report Reviewed and Image Reviewed
ECG: Report Reviewed and Image Reviewed
[2025-04-18 04:05] LABS: Glucose - Point of Care 87 mg/dl (70-99)
[2025-04-18 06:30] LABS: Glucose - Point of Care 93 mg/dl (70-99)
[2025-04-18] MEDS: TYLENOL 975 MG PO ×3 (07:38→20:11)
[2025-04-18] MEDS: PACERONE 200 MG PO ×3 (07:38→20:11)
[2025-04-18] MEDS: LOW STRENGTH ASPIRIN 81 MG PO (07:39)
[2025-04-18] MEDS: SENOKOT 8.6 MG PO ×2 (07:39→20:12)
[2025-04-18] MEDS: LIDOCAINE 4% PATCH 1 PATCH TOPICAL (07:39)
[2025-04-18] MEDS: PLAVIX 75 MG PO (07:39)
[2025-04-18] MEDS: NEURONTIN 100 MG PO ×3 (07:39→20:10)
[2025-04-18] MEDS: MAGNESIUM OXIDE 400 MG PO ×2 (07:39→20:10)
[2025-04-18] MEDS: FEOSOL 325 MG PO (07:39)
[2025-04-18] MEDS: VITAMIN C 500 MG PO (07:39)
--- NOTE | 2025-04-18 07:42 | PTCARENOTE ---
levo off, no other change in assessment .
--- NOTE | 2025-04-18 07:42 | PTCARENOTE ---
pt delined per order, valles out, stood to scale and to chair with steady gait. now resting in chair with call serrano within reach .
[2025-04-18] MEDS: BACTROBAN 2% OINTMENT 1 APPLIC NASAL ×2 (07:43→20:13)
[2025-04-18] MEDS: LOPRESSOR 12.5 MG PO ×2 (08:11→20:12)
[2025-04-18 08:15] LABS: Glucose - Point of Care 125 mg/dl (70-99)
[2025-04-18] MEDS: NOVOLOG FLEXPEN SC ×2 (08:19→12:22)
--- NOTE | 2025-04-18 09:00 | PTCARENOTE ---
Patient care assumed from nightshift RN. Got patient up to chair with assistance x2. Pt complains of 8/10 surgical incision pain, Torradol given, pt states relief since administration. Fully alert and oriented. Afebile, HR NSR w RBBB, rate 70-80s.
BP stable. On 2LNC with 98% O2 sats. Lungs diminished in bilateral bases, friction rub present. Chest tubes x4 to -20cm H20 suction intact, draining serosanguineous fluid, minimal amounts. Patient using IS frequently, reaching 750-1000. Pulses
palpable in upper and lower bilateral extremities. No edema noted. Pneumatic SCD leg pumps in use. Insulin gtt continued, following critical care protocol. Pawan discontinued this a.m, pt due to void by around noon. Pt diet advanced, lunch ordered.
[2025-04-18] MEDS: TORADOL 15 MG IV ×3 (09:19→23:03)
--- NOTE | 2025-04-18 09:29 | W.PN.ANS.POP ---
Anesthesia Post Operative
- Anesthesia Post Op Note
Vital Signs Stable-See Nursing Note: Yes
Airway Patent: Yes
Adequate Pain Control: Yes
Change in Mental Status: No
Current Postoperative Nausea & Vomiting: No
Anesthesia Complications: No
General Anesthetic Recall: No
Unplanned Admission: No
Post Op Hydration Adequate: Yes
--- NOTE | 2025-04-18 09:43 | W.PN.INTV ---
Addendum entered and electronically signed by Sharad Marin MD 04/19/25 13:15:
Patient transferred to telemetry service.
Blood Bank Custodian service will sign off, please call as needed
Original Note:
Today's Communication / Plan
Recommendations
- Incentive spirometry
- Wean O2 as tolerated
- Transition off insulin infusion
- Blood Bank Custodian service will sign off once patient is transferred out of ICU
Assessment
-
74 y/o gentleman admitted with chest pain noted to have non-ST elevation PA. Additional workup suggestive of multivessel coronary artery disease, s/p coronary artery bypass grafting and left atrial appendage exclusion POD # 1
Titrated off pressors per protocol, current MAP of 75, not requiring any pressor support
ECHO reviewed with normal function
Management of chest tubes per primary service
Patient extubated, currently saturating 97% on 2 L supplemental oxygen. Work of breathing normal. No respiratory distress noted.
CXR does not demonstrate any pneumothorax. Suspect skinfold noted on prior imaging.
Prior PFTs reviewed. No known history of lung disease
Can add nebulizers if needed
Aspiration precautions
Encouraged incentive spirometry, OOB/ambulation/early mobility
Advance diet as tolerated following extubation
GI prophylaxis: Protonix
Monitor critical I/O's
[place]/chest tube output
Hb/platelets postoperatively, mild drift
Trend CBC for now
Can transfuse if indicated for Hb <7, plt <50 in surgical patients
DVT prophylaxis including SCDs
Insulin protocol initiated and ongoing
Transition to SQ/off as indicated per team
Other medical diagnoses:
- HTN
- DM
- HLD
- CAD, NSTEMI & CABG (04/2025)
Critical Care time [41] mins -- The patient is admitted for acute critical illness for the treatment of vital organ failure and/or prevention of further life-threatening conditions. Total care includes time spent in review of history, physical exam,
medications, hemodynamic/ventilator parameters, laboratory data, imaging and discussion with house staff, pharmacy, respiratory therapy, nut and bolt assembler, and nursing
Data:
CXR 04/2025: Skinfold versus pleural edge within the left apex which could signify a small pneumothorax. Attention on follow-up imaging recommended.
C 04/2025: 1. Multivessel coronary artery disease involving the LAD, small to medium caliber nondominant left circumflex as well as a dominant RCA.
2. LVEDP of 11 mmHg.
ECHO 04/2025: 1. Left ventricle is small in size. There is normal systolic function. No regional wall motion abnormalities are seen. Mild concentric left ventricular hypertrophy. Left ventricular ejection fraction is 55-60% by volumetric
assessment. Normal diastolic function.
2. Right ventricular size and systolic function are within normal limits.
3. Thickened mitral leaflets with adequate leaflet excursion. Moderate mitral annular calcification. Chordal systolic anterior motion. Trace mitral regurgitation.
4. There are no prior studies available for comparison.
CT Chest 04/2025: 1. Severe coronary arterial calcification, consistent with the patient's history of coronary artery disease.
2. Mild mitral valvular calcification.
3. Minimal bibasilar subsegmental atelectasis, otherwise clear lungs.
4. Diffuse fatty infiltration of the liver.
Spirometry 04/2025: FEV1/FVC was 72%
FEV1 was 2.49L or 81% of predicted.
FVC was 3.48L or 84% of predicted.
The flow volume appears somewhat restricted.
No significant airflow obstruction by ATS criteria. Mildly decreased FEV1/FVC may suggest some restriction.
Subjective Dataa
Subjective Data
Date of Service:
Date of Service: April 18, 2025
Subjective:
Patient comfortably lying in bed in no acute distress.
Review of Systems
Genitourinary: Other (All 14 systems reviewed and negative except as stated above in the history of present illness.)
Objective Data
Data Reviewed
Vital Signs / I&O / Oxygen:
Vital Signs
Temp Pulse Resp BP Pulse Ox
98.6 F 72 16 113/60 97
04/18/25 07:00 04/18/25 09:30 04/18/25 09:00 04/18/25 09:00 04/18/25 08:00
Intake and Output
04/17/25 04/18/25 04/19/25
06:59 06:59 06:59
Intake Total 1054 / 1054 1298.1 / 1308.7 275.8 / 275.8
Output Total 2158 / 2158
Balance 1054 / 1054 -859.9 / -849.3 275.8 / 275.8
SaO2 [CPAP/PSV] 99
SaO2 [SIMV] 94
SaO2 97
Nasal Cannula flow liters per 2
minute
Physical Exam
General: Comfortable
HEENT: Normocephalic
Cardiovascular: S1-S2 and Regular Rhythm
Respiratory: Clear and Non-Labored Respirations
GI: Soft and Non Distended
Neurology: Awake and Alert
Skin: Warm
Labs/Micro/Reports
Lab Data
04/18/25 02:16
04/18/25 02:16
Laboratory Results
04/17/25 04/17/25
12:32 15:21
PT 17.0 H
INR 1.36
APTT 29.1
pH 7.33 L 7.41
pCO2 45 35
pO2 79 L 169 H
HCO3 23.7 22.2
O2 Delivery Level
[2025-04-18 10:20] LABS: Glucose - Point of Care 106 mg/dl (70-99)
[2025-04-18 11:47] LABS: Glucose - Point of Care 82 mg/dl (70-99)
[2025-04-18] MEDS: NSS 500 IV (12:22)
--- NOTE | 2025-04-18 12:53 | PTCARENOTE ---
Patient OOB in chair, reports improvement in pain since Torradol dose. Tolerating lunch, ate 100% of meal. CTX4 intact, output measured in I&O, small amounts of serosanguineous drainage. Remains on insulin gtt, titrating per protocol. Pt voided in
urinal 125-150cc concentrated kimberly/yellow. Staying consistent with I.S use. Remains on 2LNC.
[2025-04-18] MEDS: NOVOLIN R INSULIN INFUSION 100 IV (13:52)
[2025-04-18 14:00] LABS: Glucose - Point of Care 277 mg/dl (70-99)
[2025-04-18 14:36] LABS: Glucose - Point of Care 308 mg/dl (70-99)
[2025-04-18 15:16] LABS: Glucose - Point of Care 258 mg/dl (70-99)
[2025-04-18 16:26] LABS: Glucose - Point of Care 197 mg/dl (70-99)
[2025-04-18 17:06] LABS: Glucose - Point of Care 148 mg/dl (70-99)
[2025-04-18] MEDS: NOVOLOG FLEXPEN 4 UNITS SC (17:10)
[2025-04-18 18:08] LABS: Glucose - Point of Care 199 mg/dl (70-99)
[2025-04-18] MEDS: LIPITOR 40 MG PO (18:09)
--- NOTE | 2025-04-18 18:15 | PTCARENOTE ---
Patient remains OOB in chair, pain controlled with Torradol. Chest tubes x4 maintained on -20cm suction with small amount of serosanguineous output. 2LNC with 99% O2 sat. Repositioned as needed in chair to prevent skin breakdown. Tolerated dinner,
ate 100% of meal. Insulin gtt continued, titrating per protocol + sliding scale at mealtimes. Voided in urinal 100cc concentrated kimberly yellow urine. I.S encouraged.
[2025-04-18 19:06] LABS: Glucose - Point of Care 270 mg/dl (70-99)
--- NOTE | 2025-04-18 20:00 | PTCARENOTE ---
assumed care of patient @ 1900. received pt laying in bed, aox3. NSR on tele [id number], 1st degree AVB. BP stable. Loud rub auscultated. V wire insulated. Lungs clear, diminished in the bases satting mid 90s on 2L. CTx4 to wall suction no air leak,
tidaling or crepitus noted. Belly normoactive. voiding clear kimberly urine in urinal. Sternal aquacel with scant old drainage. R groin and R leg sites CDI with hannah wrap present. R IJ cordis , PIV x2 all patent. central lines zeroed, flushed. Recieved
on insulin per protocol. pt resting with call serrano within reach .
[2025-04-18 20:08] LABS: Glucose - Point of Care 178 mg/dl (70-99)
[2025-04-18] MEDS: TRICOR 145 MG PO (20:11)
[2025-04-18] MEDS: REMOVE LIDOCAINE PATCH 1 PATCH REMOVE (20:13)
[2025-04-18 21:04] LABS: Glucose - Point of Care 185 mg/dl (70-99)
[2025-04-18 23:12] LABS: Glucose - Point of Care 96 mg/dl (70-99)
[2025-04-19] VITALS (27 sets, daily range): BP systolic 93–139; BP diastolic 41–101; BMI 22.7
[2025-04-19 01:05] LABS: Glucose - Point of Care 100 mg/dl (70-99)
[2025-04-19 03:16] LABS: Glucose - Point of Care 79 mg/dl (70-99)
[2025-04-19] MEDS: TORADOL 15 MG IV (03:24)
[2025-04-19 03:50] LABS: Hematocrit 28.6 % (39.0-52.0); Hemoglobin 9.6 g/dL (13.0-18.0); Mean Corp Hgb Conc. 33.6 g/dL (33.0-37.0); Mean Corpuscular Volume 94.7 fL (80.0-94.0); Platelet Count 141 10^3/uL (130-400); Red Cell Dist. Width 12.6 % (11.5-14.5)
[2025-04-19 04:13] LABS: Blood Urea Nitrogen 35 mg/dl (9-20); Calcium 8.2 mg/dl (8.4-10.2); Carbon Dioxide 27 mmol/L (22-30); Chloride 107 mmol/L (98-107); Estimated Creatinine Clearance 72 ml/min; Glucose 86 mg/dl (70-99); Magnesium 2.2 mg/dl (1.6-2.3); Potassium 4.1 mmol/L (3.5-5.1); Sodium 136 mmol/L (135-145); eGFR > 60.00
[2025-04-19 04:34] LABS: Glucose - Point of Care 131 mg/dl (70-99)
--- NOTE | 2025-04-19 05:16 | W.PN.CT ---
Addendum entered and electronically signed by Blayne Kelley MD 04/19/25 09:02:
I saw and examined the patient.
The PA's note was reviewed and I agree with the note.
Comment:
Looks good this morning, plan to DC all drains maintain pacing wire and cut at discharge. Weight is very slightly up, will start some gentle diuresis today. Continue beta-homero, uptitrated.
Original Note:
Today's Communication / Plan
-
-pod #2
-no issues overnight
-CT outputs: 2 meds 30/75, 2 pleur 50/140
-continue insulin
-tolerating start of BB
-current meds (ASA, Plavix, Lipitor, Tricor, Lopressor, Amio, Protonix)
-encourage IS, OOB
Assessment / Plan
-
- NSTEMI/mv-CAD - s/p CABG x 3 (HERMES to LAD, GSV to OM1, GSV to RPDA); ELAA (40mm AtriClip) on 04/17/25, pod #2
- HTN
- HLD
- DM II
- Hep C-remote
- Current tobacco use
- Mohs procedure R forehead 04/10/25
- BPH
- Acute postop blood loss anemia - stable
- Acute postop thrombocytopenia
- Acute postop atelectasis
- Acute postop hypovolemia with subsequent hypervolemia
- Suspected acute postop pericarditis/+rub
Subjective
-
Date of Service: April 19, 2025
Objective Data
-
Lab Results
04/19/25 03:19
04/19/25 03:19
PT 17.0 Sec (11.4-14.6) H 04/17/25 12:32
INR 1.36 04/17/25 12:32
APTT 29.1 Sec (23.4-35.0) 04/17/25 12:32
Vital Signs
Vital Signs
Temp Pulse Resp BP Pulse Ox
98.6 F 71 16 107/58 97
04/18/25 19:00 04/19/25 03:50 04/19/25 03:00 04/19/25 03:00 04/19/25 03:00
CT Intake/Output/Weight
04/18/25 04/18/25 04/19/25
06:59 18:59 06:59
Intake Total 280.0 / 1308.7 645.2 / 1242.2 597.0 / 1242.2
Output Total 513 / 2158 385 / 665 280 / 665
Balance -233.0 / -849.3 260.2 / 577.2 317.0 / 577.2
SaO2: 97
Physical Exam
-
General: Awake and Oriented
Cardiovascular: Regular rate & rhythm, No Murmurs and No Rub
Respiratory: Clear and Equal
Sternum: Stable
Incision: Clean, Dry and Intact
Extremities: No Edema and No Erythema
Data Reviewed
-
Lab Results: Results Reviewed
Medications: Active Meds Reviewed
ECG: Report Reviewed
[2025-04-19 05:19] LABS: Glucose - Point of Care 122 mg/dl (70-99)
[2025-04-19 06:04] LABS: Glucose - Point of Care 122 mg/dl (70-99)
[2025-04-19 07:25] LABS: Glucose - Point of Care 127 mg/dl (70-99)
[2025-04-19] MEDS: TYLENOL 975 MG PO ×3 (07:28→20:54)
[2025-04-19] MEDS: PLAVIX 75 MG PO (07:30)
[2025-04-19] MEDS: PACERONE 200 MG PO ×3 (07:31→20:54)
[2025-04-19] MEDS: LIDOCAINE 4% PATCH 1 PATCH TOPICAL (07:31)
[2025-04-19] MEDS: NEURONTIN 100 MG PO ×3 (07:31→20:55)
[2025-04-19] MEDS: LOW STRENGTH ASPIRIN 81 MG PO (07:31)
[2025-04-19] MEDS: MAGNESIUM OXIDE 400 MG PO ×2 (07:31→20:55)
[2025-04-19] MEDS: SENOKOT 8.6 MG PO (07:31)
[2025-04-19] MEDS: VITAMIN C 500 MG PO (07:31)
[2025-04-19] MEDS: FEOSOL 325 MG PO (07:31)
[2025-04-19] MEDS: NOVOLOG FLEXPEN 4 UNITS SC ×3 (07:52→16:15)
[2025-04-19] MEDS: BACTROBAN 2% OINTMENT 1 APPLIC NASAL ×2 (07:52→20:55)
[2025-04-19 08:10] LABS: Glucose - Point of Care 127 mg/dl (70-99)
[2025-04-19] MEDS: LOPRESSOR 12.5 MG PO (08:10)
[2025-04-19 10:12] LABS: Glucose - Point of Care 184 mg/dl (70-99)
[2025-04-19] MEDS: LASIX 40 MG IV (10:45)
[2025-04-19 10:57] LABS: Glucose - Point of Care 202 mg/dl (70-99)
--- NOTE | 2025-04-19 11:13 | PTCARENOTE ---
Patient care assumed from nightshift RN. Patient OOB in chair, denies pain. Fully alert and oriented. Chest tubes x4 discontinued, vaseline gauze and ABD pad in place. V-wire insulated. Patient taken off 2LNC to room air, O2 sats maintained at 99%,
denies shortness of breath. Ambulated in room to window and to bathroom, well tolerated. Patient had bowel movement, and voiding without complication. Pulses palpable in upper and lower extremities. Insulin gtt continued, titrating per protocol
with additional sliding scale coverage. NSR with RBBB rate 70-80s. BPM within normal limits. Surgical dressings CDI. Lasix 40mg IV administered. Beta homero dose increased.
[2025-04-19 12:02] LABS: Glucose - Point of Care 178 mg/dl (70-99)
[2025-04-19] MEDS: NSS 500 IV (12:06)
[2025-04-19 12:37] LABS: Glucose - Point of Care 225 mg/dl (70-99)
[2025-04-19 13:26] LABS: Glucose - Point of Care 268 mg/dl (70-99)
[2025-04-19] MEDS: NOVOLIN R INSULIN INFUSION 100 IV (13:31)
[2025-04-19 14:18] LABS: Glucose - Point of Care 345 mg/dl (70-99)
[2025-04-19 15:33] LABS: Glucose - Point of Care 248 mg/dl (70-99)
[2025-04-19 16:21] LABS: Glucose - Point of Care 202 mg/dl (70-99)
[2025-04-19 17:21] LABS: Glucose - Point of Care 142 mg/dl (70-99)
--- NOTE | 2025-04-19 17:23 | PTCARENOTE ---
Patient sitting comfortably in chair, family bedside. Denies pain. Insulin gtt continued, titrating per protocol. Ambulation and IS encouraged. Voiding in bathroom. RIJ cordis intact. Vital signs stable. Remains on room air, no complaints of
shortness of breath. Surgical incisions and dressings CDI.
[2025-04-19] MEDS: LIPITOR 40 MG PO (18:16)
[2025-04-19 18:20] LABS: Glucose - Point of Care 167 mg/dl (70-99)
--- NOTE | 2025-04-19 19:00 | PTCARENOTE ---
Addendum entered by Evangelist Khan RN 04/19/25 22:27:
insulin to continue per day shift PA d/t high sugars.
Original Note:
assumed care of patient @ 1900. received pt sitting in chair, Afib in the 80s-90s BP stable. amio bolus and 2.5 of metoprolol IV given. Loud rub auscultated. V wire insulated. Lungs clear, diminished in the bases satting mid 90s on rooma ir. C
Belly normoactive. voiding clear kimberly urine in urinal. Sternal aquacel with scant old drainage. R groin and R leg sites CDI.R IJ cordis , PIV x2 all patent. Recieved on insulin per protocol. pt resting with call serrano within reach .
[2025-04-19 19:03] LABS: Glucose - Point of Care 180 mg/dl (70-99)
[2025-04-19] MEDS: LOPRESSOR 2.5 MG IV (19:18)
[2025-04-19] MEDS: CORDARONE 103 MG IV (19:26)
--- NOTE | 2025-04-19 20:00 | PTCARENOTE ---
pt converted to SR 70s-80s, BP stable.
[2025-04-19 20:03] LABS: Glucose - Point of Care 201 mg/dl (70-99)
[2025-04-19 20:24] LABS: Blood Urea Nitrogen 37 mg/dl (9-20); Calcium 8.1 mg/dl (8.4-10.2); Carbon Dioxide 24 mmol/L (22-30); Chloride 107 mmol/L (98-107); Estimated Creatinine Clearance 84 ml/min; Glucose 202 mg/dl (70-99); Magnesium 1.9 mg/dl (1.6-2.3); Potassium 3.7 mmol/L (3.5-5.1); Sodium 135 mmol/L (135-145); eGFR > 60.00
[2025-04-19] MEDS: MAGNESIUM SULFATE 50 IV (20:47)
[2025-04-19] MEDS: KCL ELIXIR 40 MEQ PO (20:49)
[2025-04-19] MEDS: TRICOR 145 MG PO (20:54)
[2025-04-19] MEDS: REMOVE LIDOCAINE PATCH REMOVE (20:55)
[2025-04-19] MEDS: SENOKOT PO (20:55)
[2025-04-19] MEDS: LOPRESSOR 25 MG PO (20:56)
[2025-04-19 21:07] LABS: Glucose - Point of Care 186 mg/dl (70-99)
[2025-04-19 22:04] LABS: Glucose - Point of Care 173 mg/dl (70-99)
[2025-04-19 23:07] LABS: Glucose - Point of Care 133 mg/dl (70-99)
[2025-04-20] VITALS (15 sets, daily range): BP systolic 95–146; BP diastolic 53–78; PULSE 82; O2SAT 98–99; BMI 22.9
[2025-04-20 00:22] LABS: Glucose - Point of Care 103 mg/dl (70-99)
--- NOTE | 2025-04-20 00:30 | PTCARENOTE ---
Insulin drip OK to stop per CTPA. pt resting comfortably, no change in assessment .
[2025-04-20 03:31] LABS: Hematocrit 27.5 % (39.0-52.0); Hemoglobin 9.3 g/dL (13.0-18.0); Mean Corp Hgb Conc. 33.8 g/dL (33.0-37.0); Mean Corpuscular Volume 93.2 fL (80.0-94.0); Platelet Count 167 10^3/uL (130-400); Red Cell Dist. Width 12.7 % (11.5-14.5)
[2025-04-20 03:59] LABS: Blood Urea Nitrogen 30 mg/dl (9-20); Calcium 8.5 mg/dl (8.4-10.2); Carbon Dioxide 25 mmol/L (22-30); Chloride 108 mmol/L (98-107); Estimated Creatinine Clearance 84 ml/min; Glucose 140 mg/dl (70-99); Magnesium 2.4 mg/dl (1.6-2.3); Potassium 4.6 mmol/L (3.5-5.1); Sodium 135 mmol/L (135-145); eGFR > 60.00
--- NOTE | 2025-04-20 04:27 | PTCARENOTE ---
labs drawn and sent, pt resting comfortably no change in assessment .
--- NOTE | 2025-04-20 05:20 | W.PN.CT ---
Today's Communication / Plan
-
-pod #3
-afib with rates below 100, corrected with amio bolus no gtt and IV metoprolol. K/Mg replaced. Currently NSR
-CTs DCd
-insulin gtt transitioned to subq regimen
-BB increased to 25 mg
-PW to be cut at DC
-current meds (fenofibrate, atorvastatin, amio, asa, Plavix, metoprolol 25 mg)
-encourage IS, OOB
Assessment / Plan
-
- NSTEMI/mv-CAD - s/p CABG x 3 (HERMES to LAD, GSV to OM1, GSV to RPDA); ELAA (40mm AtriClip) on 04/17/25, pod #3
- HTN
- HLD
- DM II
- Hep C-remote
- Current tobacco use
- Mohs procedure R forehead 04/10/25
- BPH
- Acute postop blood loss anemia - stable
- Acute postop thrombocytopenia
- Acute postop atelectasis
- Acute postop hypovolemia with subsequent hypervolemia
- Suspected acute postop pericarditis/+rub
- Acute Post op afib with controlled ventricular rate
Subjective
-
Date of Service: April 20, 2025
Objective Data
-
Lab Results
04/20/25 03:17
04/20/25 03:17
PT 17.0 Sec (11.4-14.6) H 04/17/25 12:32
INR 1.36 04/17/25 12:32
APTT 29.1 Sec (23.4-35.0) 04/17/25 12:32
Vital Signs
Vital Signs
Temp Pulse Resp BP Pulse Ox
99.0 F 71 14 104/60 99
04/20/25 04:00 04/20/25 04:25 04/20/25 04:00 04/20/25 04:00 04/20/25 04:00
CT Intake/Output/Weight
04/19/25 04/19/25 04/20/25
06:59 18:59 06:59
Intake Total 619.6 / 1277.4 656.7 / 1247.7 591 / 1247.7
Output Total 595 / 980 550 / 550
Balance 24.6 / 297.4 656.7 / 697.7 41 / 697.7
SaO2: 99
Physical Exam
-
General: Awake and Oriented
Cardiovascular: Regular rate & rhythm, No Murmurs and Rub
Respiratory: Clear and Equal
Sternum: Stable
Incision: Clean, Dry and Intact
Extremities: No Edema and No Erythema
Data Reviewed
-
Lab Results: Results Reviewed
Medications: Active Meds Reviewed
Chest X-Ray: Report Reviewed
ECG: Report Reviewed and Image Reviewed
[2025-04-20] MEDS: TYLENOL 975 MG PO ×2 (06:40→21:27)
--- NOTE | 2025-04-20 07:54 | PN.DE.MGMTRT ---
Insulin Management
- -
04/20/2025: Diabetes Management Follow up Consult
74 year old male admitted 04/14/25 for exertional chest pain. PMH: Nicotine use, HTN, HLD, CAD Mohs procedure 04/10/25 and T2DM. Presented to the hospital with 3 episodes of transient pressure-like chest pain radiating to jaw and arms b/l R/I for
NSTEMI. Left heart cath reported tripple vessel coronary disease--> CABG. Was taking Farxiga 10mg daily and Ozempic 1mg Q Sunday.
This morning Pt states he was taking Glimepiride BID (unsure of dose) until 2 weeks ago when it was stopped and switched to Farxiga due to rising A1C. He has been taking Ozempic for 1 year. States he was monitoring his blood sugars twice a day until
recently when his PCP said he didn't have to continue checking his blood sugar but he continued to test anyway because he has significant family h/o T2DM, notably his mom had multiple amputations and from gangrene of the foot due to
uncontrolled diabetes. He has a working glucose monitor with enough supplies. A1C 7.4%, Cr 0.6, eGFR >60
Patient awake, alert, oriented, sitting up in chair, offers no complaints, able to discuss diabetes care plan. at bedside, very supportive.
POD #3 s/p CABG x5. Transitioned off glycemic protocol @[place] last night to corrective insulin only
Glucose @ 3AM was 140, fasting 174 POC this AM. Will resume his OP regimen-Farxiga 10mg daily.
Had a lengthy discussion with pt and regarding optimal glucose control especially post-operatively for risk reduction.
Pt was in agreement with resuming Glimepiride once a day and will f/u with Dr. Bailey for a 3 month A1C check and to reassess if Glimepiride should be dc'd.
Will resume Glimepiride 4 mg daily, 1st dose now. Pt was instructed to resume Ozempic upon discharge home
Discussed with Nurse. Will cont to follow
Diabetes History
- -
Type of Diabetes: 2
Pre-Admission Diabetes Regimen
04/19/25 04/20/25
19:59 03:17
Creatinine 0.8 0.8
Lab Results
Hemoglobin A1c 7.4 % (4.0-5.6) H 04/15/25 07:27
Insulin Pump Settings
IP Diabetes Regimen
04/19/25 04/19/25 04/19/25
08:09 10:10 10:56
Glucose
POC Glucose 127 H 184 H 202 H
04/19/25 04/19/25 04/19/25
11:58 12:34 13:24
Glucose
POC Glucose 178 H 225 H 268 H
04/19/25 04/19/25 04/19/25
14:16 15:30 16:18
Glucose
POC Glucose 345 H 248 H 202 H
04/19/25 04/19/25 04/19/25
17:18 18:19 19:01
Glucose
POC Glucose 142 H 167 H 180 H
04/19/25 04/19/25 04/19/25
19:59 20:01 21:05
Glucose 202 H
POC Glucose 201 H 186 H
04/19/25 04/19/25 04/20/25
22:03 23:05 00:20
Glucose
POC Glucose 173 H 133 H 103 H
04/20/25
03:17
Glucose 140 H
POC Glucose
Meal type: Lunch
Amount consumed: 100%
Patient Education
[2025-04-20 08:21] LABS: Glucose - Point of Care 174 mg/dl (70-99)
[2025-04-20] MEDS: FEOSOL 325 MG PO (08:51)
[2025-04-20] MEDS: LOW STRENGTH ASPIRIN 81 MG PO (08:51)
[2025-04-20] MEDS: NEURONTIN 100 MG PO ×3 (08:51→21:27)
[2025-04-20] MEDS: PLAVIX 75 MG PO (08:51)
[2025-04-20] MEDS: MAGNESIUM OXIDE 400 MG PO (08:51)
[2025-04-20] MEDS: BACTROBAN 2% OINTMENT 1 APPLIC NASAL ×2 (08:51→19:37)
[2025-04-20] MEDS: PACERONE 200 MG PO ×4 (08:51→21:27)
[2025-04-20] MEDS: LOPRESSOR 25 MG PO ×2 (08:51→19:37)
[2025-04-20] MEDS: FARXIGA 10 MG PO (08:51)
[2025-04-20] MEDS: SENOKOT PO ×2 (08:52→19:28)
[2025-04-20] MEDS: NOVOLOG FLEXPEN SC ×3 (08:52→13:08)
[2025-04-20] MEDS: VITAMIN C 500 MG PO (08:52)
[2025-04-20] MEDS: LIDOCAINE 4% PATCH TOPICAL (08:52)
--- NOTE | 2025-04-20 09:27 | W.PN.CARDCBS ---
Today's Communication / Plan
-
Supportive postoperative care
Monitor telemetry for recurrent atrial fibrillation. Continue amiodarone prophylaxis. Continue metoprolol to tartrate 25 mg every 12
Impression / Plan
-
Primary Trapper Bird: Dr. Funes
Imp:
Status post CABG x 3 (VAZQUEZ to LAD, GSV to OM1, GSV to RPDA) and SARAH clip, 40 mm AtriClip 04/17/2025
Presentation with CP
NSTEMI
Multivessel CAD on cardiac cath 04/15/2025
Severe coronary calcification noted by lung CT 02/2025
HTN
HLD
DM2
Mohs surgery 04/10/25
ongoing tobacco use
ECHO 08/26/24: EF 64%, mild cLVH, aortic sclerosis, PAP 23 mmHg
Lexiscan nuclear stress test 09/01/24: small basal inferior and mid inferior defect, fixed without evidence of ischemiam EF 63%.
Echo 04/15/25: EF 55 to 60%, mild concentric LVH, moderate MAC, trace MR
Cardiac cath 04/15/2025: Multivessel disease. Proximal LAD with 85 to 90% stenosis. Left circumflex ostial 80% stenosis, ostial OM1 75% stenosis. RCA mid 70% stenosis, distal 90% stenosis. RPDA proximal 50 to 60% stenosis. RPL branch small
caliber with ostial 50% stenosis
Plan:
- Chest pain/non-STEMI found to have multivessel coronary artery disease by cardiac catheterization 04/15/2025 s/p CABG x3 and SARAH clip 04/17/2025
-Hemodynamically stable not requiring pressors
-Overnight brief atrial fibrillation which converted to sinus rhythm after amiodarone bolus and IV metoprolol. Currently in sinus rhythm.
- Continue telemetry monitoring. Continue oral amiodarone. Continue beta-homero which was increased by CT surgery service to 25 mg every 12
-Continue aspirin and Plavix with presenting non-STEMI.
-Continue atorvastatin and fenofibrate; goal LDL <55, LDL 53 04/15
-CT tubes removed by CT surgery
-Pacer wire Management per CT surgery
-Increase activity.
-sutures from recent Mohs surgery on forehead removed in OR
Will follow with you
Progress Note - Trapper Bird
Subjective
Date of Service: April 20, 2025
Seen and examined sitting out of bed to chair. Daughter at bedside. No chest pain or pressure. No shortness of breath or lightheadedness. Denies symptoms while he was in rapid atrial fibrillation.
Objective
Labs:
04/20/25 03:17
04/20/25 03:17
Labs
Hgb 9.3 g/dL (13.0-18.0) L 04/20/25 03:17
Hct 27.5 % (39.0-52.0) L 04/20/25 03:17
Plt Count 167 10^3/uL (130-400) 04/20/25 03:17
PT 17.0 Sec (11.4-14.6) H 04/17/25 12:32
INR 1.36 04/17/25 12:32
APTT 29.1 Sec (23.4-35.0) 04/17/25 12:32
Sodium 135 mmol/L (135-145) 04/20/25 03:17
Potassium 4.6 mmol/L (3.5-5.1) 04/20/25 03:17
BUN 30 mg/dl (9-20) H 04/20/25 03:17
Creatinine 0.8 mg/dL (0.7-1.3) 04/20/25 03:17
Glucose 140 mg/dl (70-99) H 04/20/25 03:17
Vital Signs and I&O:
Vital Signs
Temp Pulse Resp BP Pulse Ox
99.0 F 71 14 104/60 99
04/20/25 04:00 04/20/25 04:04/20/25 04:00 04/20/25 04:00 04/20/25 05:22
Vital Signs
Temp Pulse Resp BP Pulse Ox
99.0 F 71 14 104/60 99
04/20/25 04:00 04/20/25 04:25 04/20/25 04:00 04/20/25 04:00 04/20/25 05:22
Intake & Output
04/18/25 04/19/25 04/20/25 04/21/25
06:59 06:59 06:59 06:59
Intake Total 1298.1 / 1308.7 1264.8 / 1277.4 1247.7 / 1247.7
Output Total 2158 / 2158 980 / 980 550 / 550
Balance -859.9 / -849.3 284.8 / 297.4 697.7 / 697.7
Physical Exam
Physical Exam
GEN: Awake alert and oriented, NAD. Out of bed to chair.
HEENT: mmm
LUNGS: Bronchovesicular breath sounds decreased but clear
CV: + rub, RRR,S1/S2, no murmur. Positive pacer wires
ABD: soft, BS+, NT/ND
EXT: No edema
NEURO: Gross non-focal
SKIN:surgical incisions w/ drsg
--- NOTE | 2025-04-20 09:41 | PTCARENOTE ---
assumed care of pt from previous shift RN, sinus rhythm on tele, VSS, + peripheral pulses, trace edema to bilateral lower extremities. Lungs diminished, pox 98% on RA, coughing and deep breathing encouraged. Surgical sites stable. Cordis and PIV
flush easily. Plan of care reviewed and questions encouraged.
[2025-04-20] MEDS: LASIX 20 MG IV (11:46)
[2025-04-20 12:17] LABS: Glucose - Point of Care 182 mg/dl (70-99)
[2025-04-20] MEDS: AMARYL 4 MG PO (13:15)
[2025-04-20] MEDS: NOVOLOG FLEXPEN-MODERATE RESISTANCE 1 UNITS SC (13:15)
[2025-04-20] MEDS: TYLENOL PO (13:19)
[2025-04-20] MEDS: NSS IV (13:32)
--- NOTE | 2025-04-20 15:43 | CM ---
Reviewed chart. Met with Mr. Lund to review discharge plans. He states he is feeling well. He states prior to admission he resides with his spouse in a one story home with one step to enter. He states he has one step to get into the family room
and two steps to get to the [place] room. He states prior to admission he was independent with ambulation and adls. He states he omalley not have any DME in the home. He states his spouse has her own health problems but she really can not provide any
care. He states he has a prescription plan with [facility]. 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 He was wondering if he could go in inpatient rehab. prior to going home. Will need to see his current functional
level to see if he will have any skilled care needs. He will need pre-cert with his insurance for SNF/Rehab. We also reviewed a home visit by the Transitional Care Nurse. Medical work-up in progress. The discharge plan is to return home with his
spouse and a home visit by the Transitional Care nurse versus SNF/Rehab if he would qualify, bed available and approved by insurance when medically stable.
[2025-04-20] MEDS: LIPITOR 40 MG PO (16:02)
[2025-04-20] MEDS: TYLENOL 650 MG PO (16:05)
--- NOTE | 2025-04-20 16:34 | PTCARENOTE ---
cordis removed without incident.
[2025-04-20 17:52] LABS: Glucose - Point of Care 105 mg/dl (70-99)
[2025-04-20] MEDS: NOVOLOG FLEXPEN-MODERATE RESISTANCE SC (18:06)
--- NOTE | 2025-04-20 19:23 | PTCARENOTE ---
Patient received from RN @ 1900. Patient showered and gown changed. Patient states he has no pain or discomfort. AOx3. SR on monitor. BP 146/78. V-wire insulated. Radial and pedal pulses present. trace bilateral lower edema noted. Lungs
diminished in bases bilaterally. POX 99% RA. Patient states he has had 3 bowel movements. Voiding clear yellow urine. Sternal incision well approximated INSIDE FINISHER. Right knee incision and right groin puncture well approximated GIANA. See worklist for
more details.
[2025-04-20] MEDS: REMOVE LIDOCAINE PATCH REMOVE (19:28)
[2025-04-20] MEDS: MAGNESIUM OXIDE PO (19:28)
[2025-04-20] MEDS: TRICOR 145 MG PO (21:27)
[2025-04-20 23:17] LABS: Glucose - Point of Care 197 mg/dl (70-99)
[2025-04-21] VITALS (8 sets, daily range): BP systolic 99–136; BP diastolic 59–84; PULSE 73; O2SAT 98–99; BMI 22.5
--- NOTE | 2025-04-21 00:22 | PTCARENOTE ---
Patient reassessed. Patient ambulates to bathroom stand by assist. SR on monitor. VSS.
--- NOTE | 2025-04-21 04:28 | PTCARENOTE ---
Patient reassessed. SR on monitor. BP 99/59 HR 66 POX 96% RA. Labs obtained.
[2025-04-21 04:57] LABS: Hematocrit 28.0 % (39.0-52.0); Hemoglobin 9.5 g/dL (13.0-18.0); Mean Corp Hgb Conc. 33.9 g/dL (33.0-37.0); Mean Corpuscular Volume 95.2 fL (80.0-94.0); Platelet Count 218 10^3/uL (130-400); Red Cell Dist. Width 12.8 % (11.5-14.5)
[2025-04-21 05:06] LABS: Blood Urea Nitrogen 21 mg/dl (9-20); Calcium 8.7 mg/dl (8.4-10.2); Carbon Dioxide 25 mmol/L (22-30); Chloride 107 mmol/L (98-107); Estimated Creatinine Clearance 96 ml/min; Glucose 141 mg/dl (70-99); Magnesium 2.1 mg/dl (1.6-2.3); Potassium 4.2 mmol/L (3.5-5.1); Sodium 138 mmol/L (135-145); eGFR > 60.00
[2025-04-21] MEDS: TYLENOL 975 MG PO ×2 (06:15→21:00)
--- NOTE | 2025-04-21 06:54 | W.PN.CT ---
Today's Communication / Plan
-
Plan:
-No major issues overnight. Hemodynamically and neurologically intact
-No further a-fib since POD#2
-Tolerating increased BB
-Cont. current meds (fenofibrate, atorvastatin, amio, asa, Plavix, metoprolol 25 mg)
-F/U 2-view cxr
-Encourage use of IS
-OOB into chair
-PT/OT to see
-Home vs SNF placement in 1-2 days
Assessment / Plan
-
- NSTEMI/mv-CAD - s/p CABG x 3 (HERMES to LAD, GSV to OM1, GSV to RPDA); ELAA (40mm AtriClip) on 04/17/25, pod #4
- HTN
- HLD
- DM II
- Hep C-remote
- Current tobacco use
- Mohs procedure R forehead 04/10/25
- BPH
- Acute postop blood loss anemia - stable
- Acute postop thrombocytopenia
- Acute postop atelectasis
- Acute postop hypovolemia with subsequent hypervolemia
- Suspected acute postop pericarditis/+rub
- Acute Post op afib with controlled ventricular rate
Discussed patient care with: Cardiology, Nursing, Respiratory Therapy, Pharmacy and Care Team
Subjective
-
Date of Service: April 21, 2025
Pt c/o mild incisional pain, otherwise feels well. Wants to go SNF because is not well
Objective Data
-
Lab Results
04/21/25 04:18
04/21/25 04:18
PT 17.0 Sec (11.4-14.6) H 04/17/25 12:32
INR 1.36 04/17/25 12:32
APTT 29.1 Sec (23.4-35.0) 04/17/25 12:32
Vital Signs
Vital Signs
Temp Pulse Resp BP Pulse Ox
98.1 F 64 18 99/59 96
04/21/25 03:52 04/21/25 03:27 04/21/25 03:52 04/21/25 03:27 04/21/25 03:52
CT Intake/Output/Weight
04/20/25 04/20/25 04/21/25
06:59 18:59 06:59
Intake Total 591 / 1247.7 110 / 110
Output Total 550 / 550 1400 / 2150 750 / 2150
Balance 41 / 697.7 -1290 / -2040 -750 / -2040
SaO2: 96 (RA)
Physical Exam
-
General: Awake, Oriented and AOx3
Cardiovascular: Regular rate & rhythm, No Rub and No Gallop
Respiratory: Decreased Breath Sounds (at bases, otherwise clear)
Sternum: Stable
Incision: Clean, Dry, Intact and Dressing Intact
Extremities: Other (+trace edema)
Data Reviewed
-
Lab Results: Results Reviewed
Medications: Active Meds Reviewed
Chest X-Ray: Report Reviewed and Image Reviewed
ECG: Report Reviewed and Image Reviewed
--- NOTE | 2025-04-21 07:48 | PN.DE.MGMTRT ---
Insulin Management
- -
04/21/2025: Diabetes Management Follow up Consult
74 year old male admitted 04/14/25 for exertional chest pain. PMH: Nicotine use, HTN, HLD, CAD Mohs procedure 04/10/25 and T2DM. Presented to the hospital with 3 episodes of transient pressure-like chest pain radiating to jaw and arms b/l R/I for
NSTEMI. Left heart cath reported tripple vessel coronary disease--> CABG. Was taking Farxiga 10mg daily and Ozempic 1mg Q Sunday. A1C 7.4%, Cr 0.6, eGFR >60
Patient awake, alert, oriented, sitting up in chair, offers no complaints, able to discuss diabetes care plan. at bedside, very supportive.
POD #4 s/p CABG x3. Transitioned off glycemic protocol 04/20 @ [facility].
Patient started glimepiride 4 mg yesterday with Farxiga 10 mg daily. Glucose range yesterday 105 to 197.
Fasting glucose this AM 157. Will make no change to regimen glimepiride 4 mg daily with Farxiga 10 mg daily. Reviewed action of glimepiride with patient and importance of testing glucose and reporting to primary provider all results to determine
if glimepiride should be continued.
Pt was instructed to resume Ozempic upon discharge home
Discussed with Nurse. Will cont to follow
Diabetes History
- -
Type of Diabetes: 2
Pre-Admission Diabetes Regimen
04/21/25
04:18
Creatinine 0.7
Lab Results
Hemoglobin A1c 7.4 % (4.0-5.6) H 04/15/25 07:27
Insulin Pump Settings
IP Diabetes Regimen
04/20/25 04/20/25 04/20/25
08:20 12:16 17:52
Glucose
POC Glucose 174 H 182 H 105 H
04/20/25 04/21/25
23:16 04:18
Glucose 141 H
POC Glucose 197 H
Meal type: Breakfast
Patient Education
[2025-04-21] MEDS: NEURONTIN 100 MG PO ×3 (08:44→21:00)
[2025-04-21] MEDS: AMARYL 4 MG PO (08:44)
[2025-04-21] MEDS: PLAVIX 75 MG PO (08:44)
[2025-04-21] MEDS: LOPRESSOR 25 MG PO ×2 (08:44→20:57)
[2025-04-21] MEDS: VITAMIN C 500 MG PO (08:44)
[2025-04-21] MEDS: FARXIGA 10 MG PO (08:44)
[2025-04-21] MEDS: FEOSOL 325 MG PO (08:44)
[2025-04-21] MEDS: LOW STRENGTH ASPIRIN 81 MG PO (08:44)
[2025-04-21] MEDS: SENOKOT PO ×2 (08:45→20:57)
[2025-04-21] MEDS: LIDOCAINE 4% PATCH TOPICAL (08:45)
[2025-04-21] MEDS: PACERONE 200 MG PO ×3 (08:45→21:00)
[2025-04-21] MEDS: NSS IV (08:45)
[2025-04-21] MEDS: BACTROBAN 2% OINTMENT 1 APPLIC NASAL (08:45)
[2025-04-21 09:00] LABS: Glucose - Point of Care 157 mg/dl (70-99)
[2025-04-21] MEDS: NOVOLOG FLEXPEN-MODERATE RESISTANCE 1 UNITS SC (09:00)
--- NOTE | 2025-04-21 09:18 | PTCARENOTE ---
assumed care of pt from previous shift RN, sinus rhythm on tele w BBB, VSS, + peripheral pulses, trace edema to lower extremities. Lungs clear, pox 97% on RA, coughing and deep breathing encouraged. +bs, tolerates PO intake, voids spontaneously. pt
denies pain, surgical sites stable. Plan of care reviewed and questions encouraged.
--- NOTE | 2025-04-21 09:30 | W.PN.CARDCBS ---
Addendum entered and electronically signed by Cruzito Tee MD 04/21/25 10:38:
I saw and examined the patient.
The MAINTENANCE HELPER UTILITY ENGINEER or PA's note was reviewed and I agree with the note.
Comment: General: Well developed, well nourished in NAD.
Neck: Supple, no JVD, HJR, carotids +2 B/L, no bruits bilaterally.
Heart: Non displaced PMI, RRR, no murmurs, No S3, S4, no rubs.
Lungs: Scattered rhonchi
Sternal dressings noted
Extremities: No clubbing, cyanosis or edema bilaterally.
Neuro: Grossly nonfocal, awake, alert and oriented x3.
Remains in sinus rhythm. Continue postop care. Discussed with CT surgery.
Original Note:
Today's Communication / Plan
-
Continue postop care
Follow volume status
In sinus rhythm
Impression / Plan
-
Primary Assistant Editor: Dr. Funes
Imp:
Status post CABG x 3 (VAZQUEZ to LAD, GSV to OM1, GSV to RPDA) and SARAH clip, 40 mm AtriClip 04/17/2025
Presentation with CP
NSTEMI
Multivessel CAD on cardiac cath 04/15/2025
Severe coronary calcification noted by lung CT 02/2025
HTN
HLD
DM2
Mohs surgery 04/10/25
ongoing tobacco use
ECHO 08/26/24: EF 64%, mild cLVH, aortic sclerosis, PAP 23 mmHg
Lexiscan nuclear stress test 09/01/24: small basal inferior and mid inferior defect, fixed without evidence of ischemiam EF 63%.
Echo 04/15/25: EF 55 to 60%, mild concentric LVH, moderate MAC, trace MR
Cardiac cath 04/15/2025: Multivessel disease. Proximal LAD with 85 to 90% stenosis. Left circumflex ostial 80% stenosis, ostial OM1 75% stenosis. RCA mid 70% stenosis, distal 90% stenosis. RPDA proximal 50 to 60% stenosis. RPL branch small
caliber with ostial 50% stenosis
Plan:
- Patient presented with chest pain and ruled in for NSTEMI. Found to have multivessel CAD by cath 04/15
- Status post CABG x 3 (VAZQUEZ to LAD, GSV to OM1, GSV to RPDA) and SARAH clip, 40 mm AtriClip 04/17/2025
- Had brief atrial fibrillation on postop day 2, converted to sinus rhythm after amio bolus and IV metoprolol. He has not had recurrence since that time by review of telemetry
- Continue oral amiodarone and Lopressor 25 mg every 12 hours
- Continue aspirin, Plavix with presenting NSTEMI. If with recurrence of atrial fibrillation, would plan for anticoagulation
- Continue atorvastatin and fenofibrate. LDL 53 04/15
- PT/OT/out of bed/IS
- Continue postoperative care
- Discussed with nursing
Progress Note - Assistant Editor
Subjective
Date of Service: April 21, 2025
Overall doing well. Reports he remains with postoperative pain which waxes and wanes. Also reports some continued dyspnea with exertion
Objective
Labs:
04/21/25 04:18
04/21/25 04:18
Labs
Hgb 9.5 g/dL (13.0-18.0) L 04/21/25 04:18
Hct 28.0 % (39.0-52.0) L 04/21/25 04:18
Plt Count 218 10^3/uL (130-400) D 04/21/25 04:18
PT 17.0 Sec (11.4-14.6) H 04/17/25 12:32
INR 1.36 04/17/25 12:32
APTT 29.1 Sec (23.4-35.0) 04/17/25 12:32
Sodium 138 mmol/L (135-145) 04/21/25 04:18
Potassium 4.2 mmol/L (3.5-5.1) 04/21/25 04:18
BUN 21 mg/dl (9-20) H 04/21/25 04:18
Creatinine 0.7 mg/dL (0.7-1.3) 04/21/25 04:18
Glucose 141 mg/dl (70-99) H 04/21/25 04:18
Vital Signs and I&O:
Vital Signs
Temp Pulse Resp BP Pulse Ox
98.2 F 70 18 114/73 97
04/21/25 07:47 04/21/25 09:00 04/21/25 07:47 04/21/25 07:47 04/21/25 07:47
Vital Signs
Temp Pulse Resp BP Pulse Ox
98.2 F 70 18 114/73 97
04/21/25 07:47 04/21/25 09:00 04/21/25 07:47 04/21/25 07:47 04/21/25 07:47
Intake & Output
04/19/25 04/20/25 04/21/25 04/22/25
07:59 07:59 07:59 07:59
Intake Total 1266.8 / 1519.4 1235.1 / 1345.1 110 / 210 100 / 100
Output Total 980 / 980 550 / 550 2150 / 2550 400 / 400
Balance 286.8 / 539.4 685.1 / 795.1 -2040 / -2340 -300 / -300
Physical Exam
Physical Exam
GEN: No distress, awake, alert, oriented x3. Sitting in chair
HEENT: supple, anicteric, mmm, EOMI
LUNGS: Crackles RLB, no wheezes
CV: Reg, S1/S2, no murmur
ABD: soft, BS+, NT/ND
EXT: No cyanosis, clubbing. Trace edema of bilateral lower extremity
NEURO: Gross non-focal
SKIN: Warm, pink, dry. No rash. Sternotomy incision clean dry and intact
--- NOTE | 2025-04-21 12:00 | PTCARENOTE ---
VSS, sinus rhythm maintained on tele, pt denies pain.
[2025-04-21 12:56] LABS: Glucose - Point of Care 136 mg/dl (70-99)
[2025-04-21] MEDS: NOVOLOG FLEXPEN-MODERATE RESISTANCE SC ×2 (13:35→18:10)
--- NOTE | 2025-04-21 13:57 | CM ---
Reviewed chart. Met with Mr. Lund and spoke with Mrs. Lund via phone to review discharge plans. We reviewed inpatient rehab. Reviewed recommendations from the team. [facility] [place]. Telephone call to [facility]
Liaison to make the referral. Sent the referral. Mrs. Lund also states if the insurance will not cover acute rehab. She would like to explore [facility] and [facility]. Telephone call to [facility] to check on where to start pre-cert process. Referrals sent to SNF's as back-up plan. Medical work-up in progress. The discharge plan is to go to some level of inpatient rehab. when medically stable.
[2025-04-21] MEDS: TYLENOL PO (14:17)
[2025-04-21] MEDS: LIPITOR 40 MG PO (16:34)
--- NOTE | 2025-04-21 16:43 | PTCARENOTE ---
pt tolerated walk in the hallway w rolling walker. VSS, sinus rhythm maintained.
[2025-04-21 17:52] LABS: Glucose - Point of Care 113 mg/dl (70-99)
--- NOTE | 2025-04-21 20:30 | PTCARENOTE ---
assumed care of pt from previous shift RN, sinus rhythm on tele w BBB, VSS, + peripheral pulses, trace edema to lower extremities. Lungs clear, pox 97% on RA, coughing and deep breathing encouraged. +bs, tolerates PO intake, voids spontaneously. pt
denies pain, surgical sites stable. Plan of care reviewed and questions encouraged. call serrano within reach.
[2025-04-21] MEDS: REMOVE LIDOCAINE PATCH REMOVE (20:57)
[2025-04-21] MEDS: TRICOR 145 MG PO (21:00)
[2025-04-21 21:38] LABS: Glucose - Point of Care 151 mg/dl (70-99)
[2025-04-22] VITALS (14 sets, daily range): BP systolic 99–136; BP diastolic 62–102; PULSE 74–86; O2SAT 98; BMI 22.3
--- NOTE | 2025-04-22 00:56 | W.PN.CT ---
Today's Communication / Plan
-
-pod #5
-No major issues overnight. Hemodynamically and neurologically intact
-No further a-fib since POD#2
-Tolerating increased Lopressor 25 bid
-Cont. current meds (fenofibrate, atorvastatin, amio, Asa, Plavix, metoprolol 25 mg bid, Farxiga, Amaryl)
-2-view cxr on 04/21: Tiny bilateral pleural effusions, left slightly greater than right.
-Encourage use of IS
-OOB into chair
-PT/OT to see
-await bed in acute rehab. Appreciate CM input
Assessment / Plan
-
- NSTEMI/mv-CAD - s/p CABG x 3 (HERMES to LAD, GSV to OM1, GSV to RPDA); ELAA (40mm AtriClip) on 04/17/25, pod #5
- HTN
- HLD
- DM II
- Hep C-remote
- Current tobacco use
- Mohs procedure R forehead 04/10/25
- BPH
- Acute postop blood loss anemia - stable
- Acute postop thrombocytopenia
- Acute postop atelectasis
- Acute postop hypovolemia with subsequent hypervolemia
- Suspected acute postop pericarditis/+rub
- Acute Post op afib with controlled ventricular rate
Discussed patient care with: Nursing and Care Team
Subjective
-
Date of Service: April 22, 2025
Objective Data
-
PT 17.0 Sec (11.4-14.6) H 04/17/25 12:32
INR 1.36 04/17/25 12:32
APTT 29.1 Sec (23.4-35.0) 04/17/25 12:32
Vital Signs
Vital Signs
Temp Pulse Resp BP Pulse Ox
98 F 61 14 99/62 97
04/22/25 00:23 04/22/25 00:21 04/22/25 00:23 04/22/25 00:21 04/22/25 00:23
CT Intake/Output/Weight
04/21/25 04/21/25 04/22/25
06:59 18:59 06:59
Intake Total 100 / 100
Output Total 750 / 2150 1200 / 1550 350 / 1550
Balance -750 / -2040 -1100 / -1450 -350 / -1450
SaO2: 97
Physical Exam
-
General: AOx3
Cardiovascular: Regular rate & rhythm, No Murmurs and No Rub
Respiratory: Clear and Decreased Breath Sounds
Sternum: Stable
Incision: Clean, Dry and Intact
Extremities: Other (trace edema b/l)
Abdomen: soft, nondistended, nontender, + bowel sounds, + BMs
Data Reviewed
-
Lab Results: Results Reviewed
Medications: Active Meds Reviewed
Chest X-Ray: Report Reviewed and Image Reviewed
ECG: Report Reviewed and Image Reviewed
[2025-04-22 03:39] LABS: Hematocrit 27.2 % (39.0-52.0); Hemoglobin 9.3 g/dL (13.0-18.0); Mean Corp Hgb Conc. 34.2 g/dL (33.0-37.0); Mean Corpuscular Volume 95.4 fL (80.0-94.0); Platelet Count 257 10^3/uL (130-400); Red Cell Dist. Width 12.8 % (11.5-14.5)
[2025-04-22 04:08] LABS: Blood Urea Nitrogen 17 mg/dl (9-20); Calcium 8.7 mg/dl (8.4-10.2); Carbon Dioxide 25 mmol/L (22-30); Chloride 108 mmol/L (98-107); Estimated Creatinine Clearance 94 ml/min; Glucose 108 mg/dl (70-99); Potassium 4.2 mmol/L (3.5-5.1); Sodium 138 mmol/L (135-145); eGFR > 60.00
--- NOTE | 2025-04-22 04:19 | PTCARENOTE ---
pt resting comfortably in bed. AM labs obtained. VSS. Assessment remains unchanged
[2025-04-22] MEDS: TYLENOL 975 MG PO ×3 (06:24→21:02)
--- NOTE | 2025-04-22 08:34 | PN.DE.MGMTRT ---
Insulin Management
- -
04/22/2025: Diabetes Management Follow up Consult
74 year old male admitted 04/14/25 for exertional chest pain. PMH: Nicotine use, HTN, HLD, CAD Mohs procedure 04/10/25 and T2DM. Presented to the hospital with 3 episodes of transient pressure-like chest pain radiating to jaw and arms b/l R/I for
NSTEMI. Left heart cath reported tripple vessel coronary disease--> CABG. Was taking Farxiga 10mg daily and Ozempic 1mg Q Sunday. A1C 7.4%, Cr 0.6, eGFR >60
Patient awake, alert, oriented, sitting up in chair, offers no complaints, able to discuss diabetes care plan. at bedside, very supportive.
POD #5 s/p CABG x3. Transitioned off glycemic protocol 04/20 @ [facility].
Patient started glimepiride 4 mg yesterday with Farxiga 10 mg daily. Glucose range yesterday 113 to 157.
Fasting glucose this AM 108. Will make no change to regimen glimepiride 4 mg daily with Farxiga 10 mg daily. Reviewed action of glimepiride with patient and importance of testing glucose and reporting to primary provider all results to determine
if glimepiride should be continued.
Pt was instructed to resume Ozempic upon discharge home
Discussed with Nurse. Will cont to follow
Diabetes History
- -
Type of Diabetes: 2
Pre-Admission Diabetes Regimen
04/22/25
03:20
Creatinine 0.7
Lab Results
Hemoglobin A1c 7.4 % (4.0-5.6) H 04/15/25 07:27
Insulin Pump Settings
IP Diabetes Regimen
04/21/25 04/21/25 04/21/25
08:59 12:55 17:51
Glucose
POC Glucose 157 H 136 H 113 H
04/21/25 04/22/25
21:36 03:20
Glucose 108 H
POC Glucose 151 H
Meal type: Breakfast
Patient Education
[2025-04-22 09:00] LABS: Glucose - Point of Care 129 mg/dl (70-99)
--- NOTE | 2025-04-22 09:00 | PTCARENOTE ---
Assumed care of patient. Walking rounds completed with previous RN. Pt assessed while he was sitting in the chair. Pt alert and oriented x4. Pt rates sternal pain 3/10, denies nausea, and shortness of breath. AGUILAR with equal strength throughout.
Ambulates in the cazares with rolling walker and standby assist. Pt tolerates. NSR on tele with rates in the 70s. BP 130/64. Heart tones audible. Bilateral radial and DP pulses palpable. No edema noted. POX 99% on RA. Lungs diminished in the bases. IS
encouraged 1250ml achieved. Occasional dry nonproductive cough noted. Abdomen soft, nontender. +BS. +BM. Pt voiding urine in the toilet. Reports no issues. Sternal incision approximated, GIANA. Old chest tube sites with sutures, UNEMPLOYMENT EXAMINER. Right groin
puncture site approximated, UNEMPLOYMENT EXAMINER. Right SVG harvest site approximated, UNEMPLOYMENT EXAMINER. Left AC PIV intact. See MAR for medication administration. See worklist for complete nursing assessment. Plan of care reviewed and patient in agreement.
[2025-04-22] MEDS: NOVOLOG FLEXPEN-MODERATE RESISTANCE SC ×3 (09:01→18:20)
[2025-04-22] MEDS: FEOSOL 325 MG PO (09:27)
[2025-04-22] MEDS: AMARYL 4 MG PO (09:27)
[2025-04-22] MEDS: LOPRESSOR 25 MG PO (09:27)
[2025-04-22] MEDS: VITAMIN C 500 MG PO (09:27)
[2025-04-22] MEDS: NEURONTIN 100 MG PO ×3 (09:27→21:01)
[2025-04-22] MEDS: PLAVIX 75 MG PO (09:28)
[2025-04-22] MEDS: FARXIGA 10 MG PO (09:28)
[2025-04-22] MEDS: SENOKOT PO ×2 (09:28→19:40)
[2025-04-22] MEDS: PACERONE 200 MG PO ×3 (09:28→21:01)
[2025-04-22] MEDS: LOW STRENGTH ASPIRIN 81 MG PO (09:28)
[2025-04-22] MEDS: LIDOCAINE 4% PATCH TOPICAL (09:28)
--- NOTE | 2025-04-22 09:36 | W.PN.CARDCBS ---
Addendum entered and electronically signed by Sixto De La Torre DO 04/22/25 10:20:
I saw and examined the patient.
The Special Education Resource Teacher's note was reviewed and I agree with the note.
Comment:
Plan:
Cont post op care
Stable cv status.
Remains in sinus, if any recurrent afib, low threshold to consider anticoagulation
Discussed with nursing.
Original Note:
Today's Communication / Plan
-
continue post op care
in SR
ambulate
Impression / Plan
-
Primary Member Service Specialist: Dr. Funes
Imp:
Status post CABG x 3 (VAZQUEZ to LAD, GSV to OM1, GSV to RPDA) and SARAH clip, 40 mm AtriClip 04/17/2025
Presentation with CP
NSTEMI
Multivessel CAD on cardiac cath 04/15/2025
Severe coronary calcification noted by lung CT 02/2025
HTN
HLD
DM2
Mohs surgery 04/10/25
ongoing tobacco use
ECHO 08/26/24: EF 64%, mild cLVH, aortic sclerosis, PAP 23 mmHg
Lexiscan nuclear stress test 09/01/24: small basal inferior and mid inferior defect, fixed without evidence of ischemiam EF 63%.
Echo 04/15/25: EF 55 to 60%, mild concentric LVH, moderate MAC, trace MR
Cardiac cath 04/15/2025: Multivessel disease. Proximal LAD with 85 to 90% stenosis. Left circumflex ostial 80% stenosis, ostial OM1 75% stenosis. RCA mid 70% stenosis, distal 90% stenosis. RPDA proximal 50 to 60% stenosis. RPL branch small
caliber with ostial 50% stenosis
Plan:
- Patient presented with chest pain and ruled in for NSTEMI. Found to have multivessel CAD by cath 04/15
- Status post CABG x 3 (VAZQUEZ to LAD, GSV to OM1, GSV to RPDA) and SARAH clip, 40 mm AtriClip 04/17/2025
- Had brief atrial fibrillation on postop day 2, converted to sinus rhythm after amio bolus and IV metoprolol. He has not had recurrence since that time. remains in SR on review of tele overnight
- Continue oral amiodarone and Lopressor 25 mg every 12 hours
- Hgb 9.3. Continue aspirin, Plavix with presenting NSTEMI. If with recurrence of atrial fibrillation, would plan for anticoagulation
- Continue atorvastatin and fenofibrate. LDL 53 04/15
- PT/OT/OOB/IS
- Continue postoperative care
- plan for acute rehab upon DC
- Discussed with nursing
Progress Note - Member Service Specialist
Subjective
Date of Service: April 22, 2025
Overall feeling well. Reports remains with some postoperative pain
Objective
Labs:
04/22/25 03:20
04/22/25 03:20
Labs
Hgb 9.3 g/dL (13.0-18.0) L 04/22/25 03:20
Hct 27.2 % (39.0-52.0) L 04/22/25 03:20
Plt Count 257 10^3/uL (130-400) 04/22/25 03:20
PT 17.0 Sec (11.4-14.6) H 04/17/25 12:32
INR 1.36 04/17/25 12:32
APTT 29.1 Sec (23.4-35.0) 04/17/25 12:32
Sodium 138 mmol/L (135-145) 04/22/25 03:20
Potassium 4.2 mmol/L (3.5-5.1) 04/22/25 03:20
BUN 17 mg/dl (9-20) 04/22/25 03:20
Creatinine 0.7 mg/dL (0.7-1.3) 04/22/25 03:20
Glucose 108 mg/dl (70-99) H 04/22/25 03:20
Vital Signs and I&O:
Vital Signs
Temp Pulse Resp BP Pulse Ox
98.1 F 67 16 114/62 98
04/22/25 03:20 04/22/25 06:00 04/22/25 03:20 04/22/25 03:13 04/22/25 03:20
Vital Signs
Temp Pulse Resp BP Pulse Ox
98.1 F 67 16 114/62 98
04/22/25 03:20 04/22/25 06:00 04/22/25 03:20 04/22/25 03:13 04/22/25 03:20
Intake & Output
04/20/25 04/21/25 04/22/25 04/23/25
07:59 07:59 07:59 07:59
Intake Total 1235.1 / 1345.1 110 / 210 100 / 100
Output Total 550 / 550 2150 / 2550 1924 / 1924
Balance 685.1 / 795.1 -2040 / -2340 -5 / -1824
Physical Exam
Physical Exam
GEN: No distress, awake, alert, oriented x3. Sitting in chair
HEENT: supple, anicteric, mmm, EOMI
LUNGS: CTA B/L, no wheezes
CV: Reg, S1/S2, no murmur
ABD: soft, BS+, NT/ND
EXT: No cyanosis, clubbing. Trace edema of bilateral lower extremity
NEURO: Gross non-focal
SKIN: Warm, pink, dry. No rash. Sternotomy incision clean dry and intact
[2025-04-22] MEDS: NSS IV (11:17)
[2025-04-22 12:37] LABS: Glucose - Point of Care 124 mg/dl (70-99)
--- NOTE | 2025-04-22 12:41 | PTCARENOTE ---
Pt reassessed. NSR on tele with rates in the 70s. BP 121/64. POX 99% on RA. Surgical sites stable. Standby assist with RW to ambulate from the chair to the bathroom. Pt tolerating. No other acute changes from previous assessment.
--- NOTE | 2025-04-22 13:57 | CM ---
Reviewed chart. [facility] to check on referral and bed availability. [facility] states [facility] for [facility] and bed is available tomorrow. Met with and Mrs. Lund to update them. They are agreeable to
going to [facility] [place]. Telephone call to [facility] to start the pre-cert process. Spoke with Yudith who approved inpatient admission with start date on 04/23/25. He was approved for five days form 04/23/25 to 04/27/25 with NRD
on 04/27/25 to [phone]. The auth. number is [id number]/ Updated Mr. Lund, nursing and COMMUNICATIONS PROGRAMMER. Medical work-up in progress. The discharge plan is to go to [facility] at [place] when medically stable.
[2025-04-22] MEDS: LIPITOR 40 MG PO (16:48)
--- NOTE | 2025-04-22 16:55 | PTCARENOTE ---
Pt reassessed. NSR with rates in the 80s. BP 108/62. POX 98%. Surgical sites stable. No acute changes.
[2025-04-22 18:19] LABS: Glucose - Point of Care 133 mg/dl (70-99)
[2025-04-22] MEDS: REMOVE LIDOCAINE PATCH REMOVE (19:40)
--- NOTE | 2025-04-22 20:40 | PTCARENOTE ---
assumed care of pt from previous shift RN, sinus rhythm on tele w BBB, VSS, + peripheral pulses, v wire insulated. Lungs clear, pox 97% on RA, coughing and deep breathing encouraged. +bs, tolerates PO intake, voids spontaneously. pt denies pain,
surgical sites stable. Plan of care reviewed and questions encouraged. call serrano within reach.
[2025-04-22] MEDS: TRICOR 145 MG PO (21:01)
[2025-04-22] MEDS: LOPRESSOR 50 MG PO (21:01)
[2025-04-22 22:07] LABS: Glucose - Point of Care 184 mg/dl (70-99)
[2025-04-23 01:02] VITALS: BP 106/61
--- NOTE | 2025-04-23 01:15 | PTCARENOTE ---
VSS. NSR per tele monitor HR 60s. assessment remains unchanged.
--- NOTE | 2025-04-23 04:27 | PTCARENOTE ---
VSS. NSR per tele monitor HR 70s. assessment unchanged
[2025-04-23 05:00] VITALS: BP 120/64
[2025-04-23 06:00] VITALS: BMI 22.3
--- NOTE | 2025-04-23 06:48 | W.PN.CT ---
Today's Communication / Plan
-
-pod #6
-No major issues overnight. Hemodynamically and neurologically intact
-No further a-fib since POD#2
-Cont. current meds (fenofibrate, atorvastatin, amio, Asa, Plavix, Toprol XL 100 qd, Farxiga, Amaryl)
-Encourage use of IS
-OOB into chair
-PT/OT to see
-d/c to [facility] today.
-Appreciate CM input-
Assessment / Plan
-
- NSTEMI/mv-CAD - s/p CABG x 3 (HERMES to LAD, GSV to OM1, GSV to RPDA); ELAA (40mm AtriClip) on 04/17/25, pod #6
- HTN
- HLD
- DM II
- Hep C-remote
- Current tobacco use
- Mohs procedure R forehead 04/10/25
- BPH
- Acute postop blood loss anemia - stable
- Acute postop thrombocytopenia
- Acute postop atelectasis
- Acute postop hypovolemia with subsequent hypervolemia
- Suspected acute postop pericarditis/+rub
- Acute Post op afib with controlled ventricular rate
Discussed patient care with: Nursing and Care Team
Subjective
-
Date of Service: April 23, 2025
Objective Data
-
Lab Results
04/22/25 03:20
04/22/25 03:20
PT 17.0 Sec (11.4-14.6) H 04/17/25 12:32
INR 1.36 04/17/25 12:32
APTT 29.1 Sec (23.4-35.0) 04/17/25 12:32
Vital Signs
Vital Signs
Temp Pulse Resp BP Pulse Ox
98.2 F 66 18 106/61 98
04/23/25 01:00 04/23/25 01:02 04/23/25 01:00 04/23/25 01:02 04/23/25 01:00
CT Intake/Output/Weight
04/22/25 04/22/25 04/23/25
06:59 18:59 06:59
Intake Total 720 / 720
Output Total 725 / 1925 275 / 1075 800 / 1075
Balance -725 / -1825 445 / -355 -800 / -355
SaO2: 98
Physical Exam
-
General: AOx3
Cardiovascular: Regular rate & rhythm, No Murmurs and No Rub
Respiratory: Clear and Decreased Breath Sounds
Sternum: Stable
Incision: Clean, Dry and Intact
Abdomen: soft, nondistended, nontender, + bowel sounds, + BMs
Extremities: Other (trace edema b/l)
Data Reviewed
-
Lab Results: Results Reviewed
Medications: Active Meds Reviewed
Chest X-Ray: Report Reviewed and Image Reviewed
ECG: Report Reviewed and Image Reviewed
--- NOTE | 2025-04-23 08:00 | PTCARENOTE ---
Assumed care of patient from php engineer RN. BETIO x 3. Denies pain. SR on monitor. Room air 99%. Abdomen soft and non tender. Voiding independently. VSS Plan for day discussed.
--- NOTE | 2025-04-23 08:30 | CON.MD ---
Documented by User: Shweta Lazar PA-C 04/23/25 10:10
Consultation - Medical
-
Referring Provider:�Ascencion Angel
Chief Complaint:�CABG
�
History of Present Illness:�Patient is a 74 year male with PMH of ( HTN,HLD, DM, CAD, BPH, hep C�remote) who presented to the ED with chest pain and ruled in for NSTEMI. Found to have Multivessel CAD on cardiac cath 04/15/2025, Severe coronary
calcification noted by lung CT. 02/2025,
He is s/p CABG x 3 (VAZQUEZ to LAD, GSV to OM1, GSV to RPDA) and SARAH clip, 40 mm AtriClip 04/17/[address] Smith with subsequent acute postop blood loss anemia, thrombocytopenia, atelectasis, hypovolemia with subsequent hypervolemia, suspected
acute postop pericarditis/positive rub, A-fib with controlled ventricular rate.
Had brief atrial fibrillation on postop day 2, converted to sinus rhythm after amiodarone bolus and IV metoprolol without any recurrence since and remains in SR.
Seen by cardiology with recommendation of continued oral amiodarone and Lopressor 25 mg every 12 hours, aspirin, Plavix, atorvastatin and fenofibrate. LDL 53 04/15. If with recurrence of atrial fibrillation, would plan for anticoagulation.
Patient seen at bedside, feeling well. Eating without any issues. Had a bowel movement this morning. Is urinating without any concerns or issues. Did not sleep well last night. [place] slightly dizzy this morning getting out of bed.
�
Past Medical History:�NSTEMI, Multivessel CAD on cardiac cath 04/15/2025, Severe coronary calcification noted by lung CT 02/2025
HTN, HLD, DM2
Procedure History:�Mohs surgery 04/10/25-right forehead
Family History:�Mom and family members on maternal side with diabetes, CAD, Dad�hypertension, heart disease
�
Social History:�
Functional Level Premorbidly:�Independent with all activities, walk his dog 2-2.5 miles per day
Functional Level Currently:�Eating�modified independence, grooming�supervision, toileting, upper extremity self-care�min assist, lower body self-care�mod assist, toilet transfer�min assist, transfer�min assist, ambulated 40 feet x 2 with rolling
walker�min assist secondary to complaint of progressive leg weakness. And 15 x 2 reps with rolling walker�min assist with MATT
�
Tobacco:�yes
Alcohol:�Denies�
Drug use:�Denies�
�
Lives with:�spouse, cannot assist patient due to back injury
24-hour assistance available:�No
Number of floors:�1
# steps to enter:�1
# steps to second floor:0
Potential First floor set up:�Yes
Driving:�Yes
Occupation:�Retired
�
�
Allergies:�
Allergy/AdvReac Type Severity Reaction Status Date / Time
No Known Allergies Allergy Verified 04/14/25 23:01
�
Review of Systems:�
Constitutional: (x) Normal _
Eye: (x) Normal _
Ear/Nose/Throat: (x) Normal _
Respiratory: (x) Normal _
Cardiovascular: (x) abNormal _cabg, slight dizziness
Gastrointestinal: (x) Normal _
Genitourinary: (x) Normal _
Musculoskeletal: (x) Normal _
Integumentary: (x) Normal _
Neurologic: (x) Normal _
Psychiatric: (x) Normal _
Endocrine: (x) Normal _
Hematologic/Lymphatic: (x) Normal _
Allergic/Immunologic: (x) Normal _
�
Medications:�
Active Current Visit Medication List
Category Date Time Status
0.9% Sodium Chloride 500 ml [Nss] 500 ml Med 04/17/25 11:39 Active
IV CORDIS
Acetaminophen [Tylenol/Feverall] Med 04/17/25 11:39 Active
650 mg RECTAL Q4HPRN PRN
Acetaminophen [Tylenol] Med 04/17/25 11:39 Active
650 mg PO Q4HPRN PRN
Acetaminophen [Tylenol] Med 04/17/25 22:00 Active
975 mg PO TID@0600,1400,2200
Amiodarone [Pacerone] Med 04/17/25 16:00 Active
200 mg PO TID
Ascorbic Acid [Vitamin C] Med 04/18/25 08:00 Active
500 mg PO DAILY
Aspirin Med 04/18/25 08:00 Active
300 mg RECTAL DAILYPRN PRN
Aspirin Chewable [Low Strength Aspirin] Med 04/18/25 08:00 Active
81 mg PO DAILY
Atorvastatin [Lipitor] Med 04/15/25 18:00 Active
40 mg PO QPM
Bisacodyl [Dulcolax] Med 04/17/25 11:39 Active
10 mg RECTAL DAILYPRN PRN
Calcium CHLORIDE [Calcium Chloride 10% Syringe] Med 04/17/25 11:39 Active
500 mg IV PRN PRN
Calcium Gluconate 2 gram/100mL [Calcium Gluconate] Med 04/17/25 11:39 Active
2 gram in 100 ml IV PRN
Clopidogrel Bisulfate [Plavix] Med 04/18/25 08:00 Active
75 mg PO DAILY
Cyclobenzaprine HCl [Flexeril] Med 04/17/25 11:39 Active
5 mg PO Q8HPRN PRN
Dapagliflozin [Farxiga] Med 04/20/25 08:00 Active
10 mg PO DAILY
Dextrose 50%-Water [Dextrose 50% Syringe] Med 04/17/25 11:39 Active
12.5 grams IV [id number] PRN
Fenofibrate 145 [Tricor] Med 04/15/25 22:00 Active
145 mg PO HS
Ferrous Sulfate [Feosol] Med 04/18/25 08:00 Active
325 mg PO DAILY
Flush (0.9% Sodium Chloride) [Flush (Nss)] Med 04/15/25 03:00 Active
See Dose Instructions IV PER PROTOCOL
Gabapentin [Neurontin] Med 04/17/25 11:39 Active
100 mg PO TID
Glimepiride [Amaryl] Med 04/20/25 13:00 Active
4 mg PO DAILY
HYDROmorphone [Dilaudid] Med 04/17/25 11:39 Active
0.25 mg IV Q3HPRN PRN
Insulin Aspart Corrective Mod [Novolog Flexpen-Moderate Med 04/20/25 13:00 Active
Resistance]
See Protocol SC AC
KCl 20 Meq/50 ml [KCl] Med 04/17/25 11:39 Active
20 meq in 50 ml IV PRN
Lidocaine [Lidocaine 4% Patch] Med 04/18/25 08:00 Active
1 patch TOPICAL DAILY
Magnesium Hydroxide [Milk of Magnesia] Med 04/17/25 11:39 Active
30 ml PO BIDPRN PRN
Magnesium Oxide Med 04/18/25 08:00 Hold
400 mg PO BID
Magnesium Sulfate 2 Gram/50 ml [Magnesium Sulfate] Med 04/17/25 11:39 Active
2 gram in 50 ml IV PRN
Metoprolol Xl [Toprol Xl] Med 04/23/25 08:00 Active
100 mg PO DAILY
Ondansetron Injectable [Zofran] Med 04/17/25 11:39 Active
4 mg IV Q8HPRN PRN
Oxycodone [Roxicodone] Med 04/17/25 11:39 Active
2.5 mg PO Q4HPRN PRN
Oxycodone [Roxicodone] Med 04/17/25 11:39 Active
5 mg PO Q4HPRN PRN
Potassium Chloride [KCl] Med 04/17/25 11:39 Active
40 meq PO PRN PRN
Remove Patch [Remove Lidocaine Patch] Med 04/18/25 20:00 Active
1 patch REMOVE DAILY@1999
Sennosides [Senokot] Med 04/17/25 20:00 Active
8.6 mg PO Q12
�
Vitals:�
Temp Pulse Resp BP Pulse Ox
98.2 F 69 18 120/64 98
04/23/25 04:25 04/23/25 07:00 04/23/25 04:25 04/23/25 05:00 04/23/25 06:52
Height 5 ft 10 in
Actual Weight 70.4 kg
Body Mass Index (BMI) 22.3
�
Physical Exam:�
General Appearance/Observation: Well-developed, well-nourished individual in no apparent distress.�
Pain/Comfort Assessment: Incisional pain
Mood/Affect: Appropriate, pleasant
�
Integumentary/Operative Site:�Sternal incision healing without any drainage, drain sites healing, 2 donor sites RLE healing
�� Pressure Ulcer Evaluation: absent over heels.�
��
�� Other Type of Wound: Small healed incision with scab above right eyebrow
��
�
Eyes: Conjunctiva/Lids: normal���� Pupils: pupils equal round and reactive to light and Accommodation�
Ears/Nose/Throat: oral mucosa moist,� throat clear.������������ Lips/Teeth/Gums: normal�
Neck: No muscle spasm or tenderness�
Cardiovascular: Heart: regular, no murmur�
Pulses: dorsalis pedis 2+ bilaterally�
Respiratory: Respiratory Effort/Chest Expansion: normal������� Auscultation: miniDecreased breath clear to auscultation bilaterally�
Gastrointestinal: abdomen not tender, no distension, normal abdominal bowel sounds
Genitourinary: No Villalta�
Extremities:�Edema: None�Cyanosis: None�Trophic�changes: None
�
Neurology Exam:
Orientation: Alert, Oriented to self, Time, Place�
Memory: Intact for immediate medical concerns
Comprehension: Intact
Two step command: Intact
Naming: Intact
Cranial Nerves:
�� CNII:�Pupillary light reflex: Intact����Visual Field: Intact
�� CN III, IV, : Extraocular muscles: Intact�
�� CN V:�Facial Sensation�at�Forehead: Intact,�Maxilla: Intact,�Mandible: Intact
�� CN VII:�Facial movement: Symmetric
�� CN VIII:�Hearing: Normal
�� CN IX/X:�Speech & swallow: Normal,�Position of Uvula: Midline
�� CN XI:�Shoulder shrug: Symmetric
�� CN XII:�Tongue protrusion: Midline
Sensory:
�� Light touch: Intact in bilateral upper and lower extremities
��
Reflexes:
�� Biceps: 2+ bilaterally
�� Brachioradialis: 2+ bilaterally
�� Triceps: 2+ bilaterally
�� Patellar: 2+ bilaterally
�� Achilles: 2+ bilaterally
�� Babinski: Down going bilaterally
�� Clonus: None
�� Leeann: Negative bilaterally�
Cerebellar: Dysmetria/Ataxia: None�
Musculoskeletal:
Motor: (Manual muscle scale 0-5)�
Muscle SA EF WE EE FF FA HF KE DF EHL PF
Right� >3 >3 >3 >3 5 5 5 5 5 5 5
Left >3 >3 >3 >3 5 5 5 5 5 5 5
�
Tone: Normal in all extremities�
Range of Motion: Passively within normal limits in all extremities�
�
Lab Results:
Labs
WBC 8.2 10^3/uL (4.8-10.8) 04/22/25 03:20
RBC 2.85 10^6/uL (4.70-6.10) L 04/22/25 03:20
Hgb 9.3 g/dL (13.0-18.0) L 04/22/25 03:20
Hct 27.2 % (39.0-52.0) L 04/22/25 03:20
MCV 95.4 fL (80.0-94.0) H 04/22/25 03:20
MCH 32.6 pg (27.0-31.0) H 04/22/25 03:20
MCHC 34.2 g/dL (33.0-37.0) 04/22/25 03:20
RDW 12.8 % (11.5-14.5) 04/22/25 03:20
Plt Count 257 10^3/uL (130-400) 04/22/25 03:20
MPV 9.3 fL (7.4-10.4) 04/22/25 03:20
Abs Immat Gran (auto) 0.0 10^3/uL (0-0.05) 04/14/25 19:28
Absolute Neuts (auto) 3.4 10^3/uL (1.4-6.5) 04/14/25 19:28
Absolute Lymphs (auto) 2.4 10^3/uL (1.2-3.4) 04/14/25 19:28
Absolute Monos (auto) 0.8 10^3/uL (0.1-0.6) H 04/14/25 19:28
Absolute Eos (auto) 0.4 10^3/uL (0-0.7) 04/14/25 19:28
Absolute Basos (auto) 0.0 10^3/uL (0-0.2) 04/14/25 19:28
Immature Gran % 0.3 % (0-0.5) 04/14/25 19:28
Neutrophils % 48.3 % (42.2-75.2) 04/14/25 19:28
Lymphocytes % 34.4 % (20.5-51.1) 04/14/25 19:28
Monocytes % 11.2 % (1.7-9.3) H 04/14/25 19:28
Eosinophils % 5.2 % (0-6) 04/14/25 19:28
Basophils % 0.6 % (0-2) 04/14/25 19:28
Nucleated RBC % 0 % (-) 04/14/25 19:28
PT 17.0 Sec (11.4-14.6) H 04/17/25 12:32
INR 1.36 04/17/25 12:32
APTT 29.1 Sec (23.4-35.0) 04/17/25 12:32
pH 7.41 (7.35-7.45) 04/17/25 15:21
pCO2 35 mmHg (35-48) 04/17/25 15:21
pO2 169 mmHg (83-108) H 04/17/25 15:21
HCO3 22.2 mmol/L (21-28) 04/17/25 15:21
Base Excess -1.9 mmol/L 04/17/25 15:21
ABG O2 Sat (Measured) 99.6 % (94-98) H 04/17/25 15:21
POC ABG O2 Sat (Calc) 99.9 % (94-98) H 04/17/25 11:25
Sodium 139 mMOL/L (136-145) 04/17/25 15:21
Potassium 5.2 mMOL/L (3.5-5.1) H 04/17/25 15:21
O2 Delivery Level 04/17/25 15:21
Sodium 138 mmol/L (135-145) 04/22/25 03:20
Potassium 4.2 mmol/L (3.5-5.1) 04/22/25 03:20
Chloride 108 mmol/L (98-107) H 04/22/25 03:20
Carbon Dioxide 25 mmol/L (22-30) 04/22/25 03:20
BUN 17 mg/dl (9-20) 04/22/25 03:20
Creatinine 0.7 mg/dL (0.7-1.3) 04/22/25 03:20
Estimated Creat Clear 94 ml/min 04/22/25 03:20
eGFR > 60.00 04/22/25 03:20
Glucose 108 mg/dl (70-99) H 04/22/25 03:20
Hemoglobin A1c 7.4 % (4.0-5.6) H 04/15/25 07:27
Calcium 8.7 mg/dl (8.4-10.2) 04/22/25 03:20
Ionized Calcium 1.12 mMOL/L (1.15-1.33) L 04/17/25 15:21
Magnesium 2.1 mg/dl (1.6-2.3) 04/21/25 04:18
Total Bilirubin 0.4 mg/dl (0.2-1.3) 04/14/25 19:28
AST 24 U/L (17-59) 04/14/25 19:28
ALT 26 U/L (0-50) 04/14/25 19:28
Alkaline Phosphatase 27 U/L (38-126) L 04/14/25 19:28
Troponin I 0.115 ng/ml H* 04/15/25 11:48
Total Protein 7.0 g/dl (6.3-8.2) 04/14/25 19:28
Albumin 4.5 g/dl (3.5-5.0) 04/14/25 19:28
Triglycerides 166 mg/dl (10-149) H 04/15/25 07:27
Total Cholesterol 117 mg/dl (50-199) 04/15/25 07:27
LDL Cholesterol, Calc 53 mg/dl 04/15/25 07:27
VLDL Cholesterol, Calc 33 mg/dl (0-30) H 04/15/25 07:27
HDL Cholesterol 31 mg/dl 04/15/25 07:27
TSH (Reflex) 1.50 uIU/ml (0.47-4.68) 04/15/25 07:27
Urine Color Yellow 04/17/25 07:00
Urine Clarity Clear (Clear) 04/17/25 07:00
Urine pH 6.0 (5.0-9.0) 04/17/25 07:00
Ur Specific [place] 1.020 (<1.030) 04/17/25 07:00
Urine Ketones Negative (Negative) 04/17/25 07:00
Ur Occult Blood Reflex 2+ (Negative) A 04/17/25 07:00
Urine Nitrite (Reflex) Negative (Negative) 04/17/25 07:00
Urine Bilirubin Negative (Negative) 04/17/25 07:00
Urine Urobilinogen Negative (Neg - 1+) 04/17/25 07:00
Leukocyte Esterase Rfl Negative (Negative) 04/17/25 07:00
Urine RBC 3-6 /HPF (0-2) A 04/17/25 07:00
Urine WBC (Reflex) 6-10 /HPF (0-5) 04/17/25 07:00
Ur Squamous Epith Cells 0-2 /LPF (Few) 04/17/25 07:00
Urine Bacteria (Reflex) Few (Negative) A 04/17/25 07:00
Urine Glucose 3+ (Negative) A 04/17/25 07:00
Urine Albumin (Reflex) 1+ (Neg - Trace) A 04/17/25 07:00
Hepatitis C Antibody Reactive (Negative) 04/15/25 07:27
HCV RNA (NAAT) IU/mL Not detected IU/mL 04/16/25 00:19
HCV RNA (NAAT) log IU/mL Not detected log IU/mL 04/16/25 00:19
Hepatitis C Interp Not detected (Not Detected) 04/16/25 00:19
Specimen Type Arterial 04/17/25 11:25
POC ABG Comment Post 04/17/25 11:25
POC pH 7.34 (7.35-7.45) L 04/17/25 11:25
POC Base Excess -2.2 mmol/L 04/17/25 11:25
POC pO2 291 mmHg (83-108) H 04/17/25 11:25
POC pCO2 44 mmHg (35-48) 04/17/25 11:25
POC HCO3 24 mmol/L (21-28) 04/17/25 11:25
POC Glucose 184 mg/dl (70-99) H 04/22/25 22:05
POC Glucose 156 mg/dl (70-99) H 04/17/25 11:25
POC Sodium 139 mmol/L (136-145) 04/17/25 11:25
POC Potassium 4.0 mmol/L (3.5-5.1) 04/17/25 11:25
POC Ionized Calcium 1.35 mmol/L (1.15-1.33) H 04/17/25 11:25
POC Lactate 1.67 mmol/L (0.36-0.75) H 04/17/25 11:25
POC ACT+ 126 Seconds (82-134) 04/17/25 11:22
POC Hemoglobin Calc 9.6 04/17/25 11:25
POC Hematocrit 28 % PCV (42-52) L 04/17/25 11:25
POC Hemodilution Yes 04/17/25 11:25
Blood Type O POS 04/16/25 00:19
Blood Type Confirm O POS 04/16/25 05:31
Antibody Screen Negative (Negative) 04/16/25 00:19
Crossmatch IS Only See Detail 04/16/25 00:19
�
Diagnostic Results:�as per HPI�
�ECHO 08/26/24: EF 64%, mild cLVH, aortic sclerosis, PAP 23 mmHg
Lexiscan nuclear stress test 09/01/24: small basal inferior and mid inferior defect, fixed without evidence of ischemia EF 63%.
Echo 04/15/25: EF 55 to 60%, mild concentric LVH, moderate MAC, trace MR
Cardiac cath 04/15/2025: Multivessel disease. Proximal LAD with 85 to 90% stenosis. Left circumflex ostial 80% stenosis, ostial OM1 75% stenosis. RCA mid 70% stenosis, distal 90% stenosis. RPDA proximal 50 to 60% stenosis. RPL branch small
caliber with ostial 50% stenosis
Assessment: 74 year old male with PMH of chest pain, CAD, NSTEMI, s/p CABG x 3 with ambulatory and ADLs dysfunction.
�
Plan�
PM&R�PT/OT to increase independence with ADLs, improve balance, coordination, endurance, strength, mobility, community reintegration, decreased burden of care on others and family education.�
Debility:PT/OT
NSTEMI S/P CABG x 3: 04/17/[address] Ascencion Smith Sternal precautions.� Aspirin, statin, amiodarone 200 3 times daily, Plavix 75 daily, Farxiga 10 mg, metoprolol XL 100 daily BP control.� Monitor incision, pain control.�
HTN: continue medications, monitor closely�
HDL: Fenofibrate 145 bedtime
Coronary artery disease�:multi-vessel, Aspirin, statin, beta-homero��
DM II: Accu-Cheks, insulin sliding scale, glimepiride 4 mg daily, Farxiga 10 daily
Anemia: Postop and multifactorial.� Ferrous sulfate 325 daily continue to monitor.�
Psych: � Monitor mood, adjust medications as needed.�
Skin: monitor for pressure sores/rashes/lesions.�
Pain: acetaminophen or oxycodone 2.5 or 5 mg every 4 as needed as needed.� Gabapentin 100 3 times daily, lidocaine patch, Flexeril 5 mg Q8 as needed
Bowel: Colace and Senna, PRN bisacodyl.�
Bladder: Time void, PVRs, PRN straight cath.�
GI Prophylaxis: Pantoprazole�
DVT Prophylaxis: comment on chemoprophylaxis
Pulmonary: Incentive spirometry�
Safety: Continue to reinforce assistance with all transfers.�
Code Status:� Full code
Dispo�(date/plan/equipment needs): Home with family care.� Social history reviewed.�
�
Functional and Medical Goals:�Modified Independent with ADL�s, ambulation, transfers�
�
Discharge Destination:�Acute inpatient
�
Summary of recommendations:
-
DVT Prophylaxis: comment on chemoprophylaxis
Pulmonary: Incentive spirometry�
Safety: Continue to reinforce assistance with all transfers.�
Thank you for allowing me to care for your patient. Please contact me with any questions or concerns.
Consultation
-
Date/Time Consultation Requested: 04/21/2025
Date/Time Consultation Performed: 04/23/2025 8:30 am
Requesting Provider: Dr. Ascencion Smith
Performing Provider: Shweta Lazar/Dr. Madden
Reason for Consultation: CABG

Documented by User: Matthew Madden MD 04/23/25 17:14
Consultation - Medical
-
Referring Provider:�Ascencion Angel
Chief Complaint:�CABG
�
History of Present Illness:�Patient is a 74 year male with PMH of ( HTN,HLD, DM, CAD, BPH, hep C�remote) who presented to the ED with chest pain and ruled in for NSTEMI. Found to have Multivessel CAD on cardiac cath 04/15/2025, Severe coronary
calcification noted by lung CT. 02/2025,
He is s/p CABG x 3 (VAZQUEZ to LAD, GSV to OM1, GSV to RPDA) and SARAH clip, 40 mm AtriClip 04/17/[address] Smith with subsequent acute postop blood loss anemia, thrombocytopenia, atelectasis, hypovolemia with subsequent hypervolemia, suspected
acute postop pericarditis/positive rub, A-fib with controlled ventricular rate.
Had brief atrial fibrillation on postop day 2, converted to sinus rhythm after amiodarone bolus and IV metoprolol without any recurrence since and remains in SR.
Seen by cardiology with recommendation of continued oral amiodarone and Lopressor 25 mg every 12 hours, aspirin, Plavix, atorvastatin and fenofibrate. LDL 53 04/15. If with recurrence of atrial fibrillation, would plan for anticoagulation.
Patient seen at bedside, feeling well. Eating without any issues. Had a bowel movement this morning. Is urinating without any concerns or issues. Did not sleep well last night. [place] slightly dizzy this morning getting out of bed.
�
Past Medical History:�NSTEMI, Multivessel CAD on cardiac cath 04/15/2025, Severe coronary calcification noted by lung CT 02/2025
HTN, HLD, DM2
Procedure History:�Mohs surgery 04/10/25-right forehead
Family History:�Mom and family members on maternal side with diabetes, CAD, Dad�hypertension, heart disease
�
Social History:�
Functional Level Premorbidly:�Independent with all activities, walk his dog 2-2.5 miles per day
Functional Level Currently:�Eating�modified independence, grooming�supervision, toileting, upper extremity self-care�min assist, lower body self-care�mod assist, toilet transfer�min assist, transfer�min assist, ambulated 40 feet x 2 with rolling
walker�min assist secondary to complaint of progressive leg weakness. And 15 x 2 reps with rolling walker�min assist with MATT
�
Tobacco:�yes
Alcohol:�Denies�
Drug use:�Denies�
�
Lives with:�spouse, cannot assist patient due to back injury
24-hour assistance available:�No
Number of floors:�1
# steps to enter:�1
# steps to second floor: 0
Potential First floor set up:�Yes
Driving:�Yes
Occupation:�Retired
�
�
Allergies:�
Allergy/AdvReac Type Severity Reaction Status Date / Time
No Known Allergies Allergy Verified 04/14/25 23:01
�
Review of Systems:�
Constitutional: (x) abNormal _fatigue
Eye: (x) Normal _
Ear/Nose/Throat: (x) Normal _
Respiratory: (x) Normal _
Cardiovascular: (x) abNormal _cabg, slight dizziness
Gastrointestinal: (x) abNormal _some constipation has had hard and liquid stools
Genitourinary: (x) Normal _
Musculoskeletal: (x) Normal _
Integumentary: (x) Normal _
Neurologic: (x) Normal _
Psychiatric: (x) Normal _
Endocrine: (x) Normal _
Hematologic/Lymphatic: (x) Normal _
Allergic/Immunologic: (x) Normal _
�
Medications:�
Active Current Visit Medication List
Category Date Time Status
0.9% Sodium Chloride 500 ml [Nss] 500 ml Med 04/17/25 11:39 Active
IV CORDIS
Acetaminophen [Tylenol/Feverall] Med 04/17/25 11:39 Active
650 mg RECTAL Q4HPRN PRN
Acetaminophen [Tylenol] Med 04/17/25 11:39 Active
650 mg PO Q4HPRN PRN
Acetaminophen [Tylenol] Med 04/17/25 22:00 Active
975 mg PO TID@0600,1400,2200
Amiodarone [Pacerone] Med 04/17/25 16:00 Active
200 mg PO TID
Ascorbic Acid [Vitamin C] Med 04/18/25 08:00 Active
500 mg PO DAILY
Aspirin Med 04/18/25 08:00 Active
300 mg RECTAL DAILYPRN PRN
Aspirin Chewable [Low Strength Aspirin] Med 04/18/25 08:00 Active
81 mg PO DAILY
Atorvastatin [Lipitor] Med 04/15/25 18:00 Active
40 mg PO QPM
Bisacodyl [Dulcolax] Med 04/17/25 11:39 Active
10 mg RECTAL DAILYPRN PRN
Calcium CHLORIDE [Calcium Chloride 10% Syringe] Med 04/17/25 11:39 Active
500 mg IV PRN PRN
Calcium Gluconate 2 gram/100mL [Calcium Gluconate] Med 04/17/25 11:39 Active
2 gram in 100 ml IV PRN
Clopidogrel Bisulfate [Plavix] Med 04/18/25 08:00 Active
75 mg PO DAILY
Cyclobenzaprine HCl [Flexeril] Med 04/17/25 11:39 Active
5 mg PO Q8HPRN PRN
Dapagliflozin [Farxiga] Med 04/20/25 08:00 Active
10 mg PO DAILY
Dextrose 50%-Water [Dextrose 50% Syringe] Med 04/17/25 11:39 Active
12.5 grams IV [id number] PRN
Fenofibrate 145 [Tricor] Med 04/15/25 22:00 Active
145 mg PO HS
Ferrous Sulfate [Feosol] Med 04/18/25 08:00 Active
325 mg PO DAILY
Flush (0.9% Sodium Chloride) [Flush (Nss)] Med 04/15/25 03:00 Active
See Dose Instructions IV PER PROTOCOL
Gabapentin [Neurontin] Med 04/17/25 11:39 Active
100 mg PO TID
Glimepiride [Amaryl] Med 04/20/25 13:00 Active
4 mg PO DAILY
HYDROmorphone [Dilaudid] Med 04/17/25 11:39 Active
0.25 mg IV Q3HPRN PRN
Insulin Aspart Corrective Mod [Novolog Flexpen-Moderate Med 04/20/25 13:00 Active
Resistance]
See Protocol SC AC
KCl 20 Meq/50 ml [KCl] Med 04/17/25 11:39 Active
20 meq in 50 ml IV PRN
Lidocaine [Lidocaine 4% Patch] Med 04/18/25 08:00 Active
1 patch TOPICAL DAILY
Magnesium Hydroxide [Milk of Magnesia] Med 04/17/25 11:39 Active
30 ml PO BIDPRN PRN
Magnesium Oxide Med 04/18/25 08:00 Hold
400 mg PO BID
Magnesium Sulfate 2 Gram/50 ml [Magnesium Sulfate] Med 04/17/25 11:39 Active
2 gram in 50 ml IV PRN
Metoprolol Xl [Toprol Xl] Med 04/23/25 08:00 Active
100 mg PO DAILY
Ondansetron Injectable [Zofran] Med 04/17/25 11:39 Active
4 mg IV Q8HPRN PRN
Oxycodone [Roxicodone] Med 04/17/25 11:39 Active
2.5 mg PO Q4HPRN PRN
Oxycodone [Roxicodone] Med 04/17/25 11:39 Active
5 mg PO Q4HPRN PRN
Potassium Chloride [KCl] Med 04/17/25 11:39 Active
40 meq PO PRN PRN
Remove Patch [Remove Lidocaine Patch] Med 04/18/25 20:00 Active
1 patch REMOVE DAILY@1999
Sennosides [Senokot] Med 04/17/25 20:00 Active
8.6 mg PO Q12
�
Vitals:�
Temp Pulse Resp BP Pulse Ox
98.2 F 69 18 120/64 98
04/23/25 04:25 04/23/25 07:00 04/23/25 04:25 04/23/25 05:00 04/23/25 06:52
Height 5 ft 10 in
Actual Weight 70.4 kg
Body Mass Index (BMI) 22.3
�
Physical Exam:�
General Appearance/Observation: Well-developed, well-nourished male in no apparent distress.�
Pain/Comfort Assessment: Incisional pain
Mood/Affect: Appropriate, pleasant
�
Integumentary/Operative Site:�Sternal incision healing without any drainage, drain sites healing, 2 donor sites RLE healing
- Small healed scab above right eyebrow
��
�
Eyes: Conjunctiva/Lids: normal���� Pupils: pupils equal round and reactive to light and Accommodation�
Ears/Nose/Throat: oral mucosa moist,� throat clear.������������ Lips/Teeth/Gums: normal�
Neck: No muscle spasm or tenderness�
Cardiovascular: Heart: regular, no murmur�
Pulses: dorsalis pedis 2+ bilaterally�
Respiratory: Respiratory Effort/Chest Expansion: normal������� Auscultation: miniDecreased breath clear to auscultation bilaterally�
Gastrointestinal: abdomen not tender, no distension, normal abdominal bowel sounds
Genitourinary: No Villalta�
Extremities:�Edema: None�Cyanosis: None�Trophic�changes: None
�
Neurology Exam:
Orientation: Alert, Oriented to self, Time, Place�
Memory: Intact for immediate medical concerns
Comprehension: Intact
Two step command: Intact
Naming: Intact
Cranial Nerves:
�� CNII:�Pupillary light reflex: Intact����Visual Field: Intact
�� CN III, IV, : Extraocular muscles: Intact�
�� CN V:�Facial Sensation�at�Forehead: Intact,�Maxilla: Intact,�Mandible: Intact
�� CN VII:�Facial movement: Symmetric
�� CN VIII:�Hearing: Normal
�� CN IX/X:�Speech & swallow: Normal,�Position of Uvula: Midline
�� CN XI:�Shoulder shrug: Symmetric
�� CN XII:�Tongue protrusion: Midline
Sensory:
�� Light touch: Intact in bilateral upper and lower extremities
��
Reflexes:
�� Biceps: 2+ bilaterally
�� Brachioradialis: 2+ bilaterally
�� Triceps: 2+ bilaterally
�� Patellar: 2+ bilaterally
�� Achilles: 2+ bilaterally
�� Babinski: Down going bilaterally
�� Clonus: None
�� Leeann: Negative bilaterally�
Cerebellar: Dysmetria/Ataxia: None�
Musculoskeletal: Motor: (Manual muscle scale 0-5)�
Muscle SA EF WE EE FF FA HF KE DF EHL PF
Right� >3 >3 >3 >3 5 4 4 5 5 5 5
Left >3 >3 >3 >3 5 4 4 5 5 5 5
�
Tone: Normal in all extremities�
Range of Motion: Passively within normal limits in all extremities�
�
Lab Results:
Labs
WBC 8.2 10^3/uL (4.8-10.8) 04/22/25 03:20
RBC 2.85 10^6/uL (4.70-6.10) L 04/22/25 03:20
Hgb 9.3 g/dL (13.0-18.0) L 04/22/25 03:20
Hct 27.2 % (39.0-52.0) L 04/22/25 03:20
MCV 95.4 fL (80.0-94.0) H 04/22/25 03:20
MCH 32.6 pg (27.0-31.0) H 04/22/25 03:20
MCHC 34.2 g/dL (33.0-37.0) 04/22/25 03:20
RDW 12.8 % (11.5-14.5) 04/22/25 03:20
Plt Count 257 10^3/uL (130-400) 04/22/25 03:20
MPV 9.3 fL (7.4-10.4) 04/22/25 03:20
Abs Immat Gran (auto) 0.0 10^3/uL (0-0.05) 04/14/25 19:28
Absolute Neuts (auto) 3.4 10^3/uL (1.4-6.5) 04/14/25 19:28
Absolute Lymphs (auto) 2.4 10^3/uL (1.2-3.4) 04/14/25 19:28
Absolute Monos (auto) 0.8 10^3/uL (0.1-0.6) H 04/14/25 19:28
Absolute Eos (auto) 0.4 10^3/uL (0-0.7) 04/14/25 19:28
Absolute Basos (auto) 0.0 10^3/uL (0-0.2) 04/14/25 19:28
Immature Gran % 0.3 % (0-0.5) 04/14/25 19:28
Neutrophils % 48.3 % (42.2-75.2) 04/14/25 19:28
Lymphocytes % 34.4 % (20.5-51.1) 04/14/25 19:28
Monocytes % 11.2 % (1.7-9.3) H 04/14/25 19:28
Eosinophils % 5.2 % (0-6) 04/14/25 19:28
Basophils % 0.6 % (0-2) 09/30/25 19:28
Nucleated RBC % 0 % (-) 04/14/25 19:28
PT 17.0 Sec (11.4-14.6) H 04/17/25 12:32
INR 1.36 04/17/25 12:32
APTT 29.1 Sec (23.4-35.0) 04/17/25 12:32
pH 7.41 (7.35-7.45) 04/17/25 15:21
pCO2 35 mmHg (35-48) 04/17/25 15:21
pO2 169 mmHg (83-108) H 04/17/25 15:21
HCO3 22.2 mmol/L (21-28) 04/17/25 15:21
Base Excess -1.9 mmol/L 04/17/25 15:21
ABG O2 Sat (Measured) 99.6 % (94-98) H 04/17/25 15:21
POC ABG O2 Sat (Calc) 99.9 % (94-98) H 04/17/25 11:25
Sodium 139 mMOL/L (136-145) 04/17/25 15:21
Potassium 5.2 mMOL/L (3.5-5.1) H 04/17/25 15:21
O2 Delivery Level 04/17/25 15:21
Sodium 138 mmol/L (135-145) 04/22/25 03:20
Potassium 4.2 mmol/L (3.5-5.1) 04/22/25 03:20
Chloride 108 mmol/L (98-107) H 04/22/25 03:20
Carbon Dioxide 25 mmol/L (22-30) 04/22/25 03:20
BUN 17 mg/dl (9-20) 04/22/25 03:20
Creatinine 0.7 mg/dL (0.7-1.3) 04/22/25 03:20
Estimated Creat Clear 94 ml/min 04/22/25 03:20
eGFR > 60.00 04/22/25 03:20
Glucose 108 mg/dl (70-99) H 04/22/25 03:20
Hemoglobin A1c 7.4 % (4.0-5.6) H 04/15/25 07:27
Calcium 8.7 mg/dl (8.4-10.2) 04/22/25 03:20
Ionized Calcium 1.12 mMOL/L (1.15-1.33) L 04/17/25 15:21
Magnesium 2.1 mg/dl (1.6-2.3) 04/21/25 04:18
Total Bilirubin 0.4 mg/dl (0.2-1.3) 04/14/25 19:28
AST 24 U/L (17-59) 04/14/25 19:28
ALT 26 U/L (0-50) 04/14/25 19:28
Alkaline Phosphatase 27 U/L (38-126) L 04/14/25 19:28
Troponin I 0.115 ng/ml H* 04/15/25 11:48
Total Protein 7.0 g/dl (6.3-8.2) 04/14/25 19:28
Albumin 4.5 g/dl (3.5-5.0) 04/14/25 19:28
Triglycerides 166 mg/dl (10-149) H 04/15/25 07:27
Total Cholesterol 117 mg/dl (50-199) 04/15/25 07:27
LDL Cholesterol, Calc 53 mg/dl 04/15/25 07:27
VLDL Cholesterol, Calc 33 mg/dl (0-30) H 04/15/25 07:27
HDL Cholesterol 31 mg/dl 04/15/25 07:27
TSH (Reflex) 1.50 uIU/ml (0.47-4.68) 04/15/25 07:27
Urine Color Yellow 04/17/25 07:00
Urine Clarity Clear (Clear) 04/17/25 07:00
Urine pH 6.0 (5.0-9.0) 04/17/25 07:00
Ur Specific Odin 1.020 (<1.030) 04/17/25 07:00
Urine Ketones Negative (Negative) 04/17/25 07:00
Ur Occult Blood Reflex 2+ (Negative) A 04/17/25 07:00
Urine Nitrite (Reflex) Negative (Negative) 04/17/25 07:00
Urine Bilirubin Negative (Negative) 04/17/25 07:00
Urine Urobilinogen Negative (Neg - 1+) 04/17/25 07:00
Leukocyte Esterase Rfl Negative (Negative) 04/17/25 07:00
Urine RBC 3-6 /HPF (0-2) A 04/17/25 07:00
Urine WBC (Reflex) 6-10 /HPF (0-5) 04/17/25 07:00
Ur Squamous Epith Cells 0-2 /LPF (Few) 04/17/25 07:00
Urine Bacteria (Reflex) Few (Negative) A 04/17/25 07:00
Urine Glucose 3+ (Negative) A 04/17/25 07:00
Urine Albumin (Reflex) 1+ (Neg - Trace) A 04/17/25 07:00
Hepatitis C Antibody Reactive (Negative) 04/15/25 07:27
HCV RNA (NAAT) IU/mL Not detected IU/mL 04/16/25 00:19
HCV RNA (NAAT) log IU/mL Not detected log IU/mL 04/16/25 00:19
Hepatitis C Interp Not detected (Not Detected) 04/16/25 00:19
Specimen Type Arterial 04/17/25 11:25
POC ABG Comment Post 04/17/25 11:25
POC pH 7.34 (7.35-7.45) L 04/17/25 11:25
POC Base Excess -2.2 mmol/L 04/17/25 11:25
POC pO2 291 mmHg (83-108) H 04/17/25 11:25
POC pCO2 44 mmHg (35-48) 04/17/25 11:25
POC HCO3 24 mmol/L (21-28) 04/17/25 11:25
POC Glucose 184 mg/dl (70-99) H 04/22/25 22:05
POC Glucose 156 mg/dl (70-99) H 04/17/25 11:25
POC Sodium 139 mmol/L (136-145) 04/17/25 11:25
POC Potassium 4.0 mmol/L (3.5-5.1) 04/17/25 11:25
POC Ionized Calcium 1.35 mmol/L (1.15-1.33) H 04/17/25 11:25
POC Lactate 1.67 mmol/L (0.36-0.75) H 04/17/25 11:25
POC ACT+ 126 Seconds (82-134) 04/17/25 11:22
POC Hemoglobin Calc 9.6 04/17/25 11:25
POC Hematocrit 28 % PCV (42-52) L 04/17/25 11:25
POC Hemodilution Yes 04/17/25 11:25
Blood Type O POS 04/16/25 00:19
Blood Type Confirm O POS 04/16/25 05:31
Antibody Screen Negative (Negative) 04/16/25 00:19
Crossmatch IS Only See Detail 04/16/25 00:19
�
Diagnostic Results:�as per HPI�
ECHO 08/26/24: EF 64%, mild cLVH, aortic sclerosis, PAP 23 mmHg
Lexiscan nuclear stress test 09/01/24: small basal inferior and mid inferior defect, fixed without evidence of ischemia EF 63%.
Echo 04/15/25: EF 55 to 60%, mild concentric LVH, moderate MAC, trace MR
Cardiac cath 04/15/2025: Multivessel disease. Proximal LAD with 85 to 90% stenosis. Left circumflex ostial 80% stenosis, ostial OM1 75% stenosis. RCA mid 70% stenosis, distal 90% stenosis. RPDA proximal 50 to 60% stenosis. RPL branch small
caliber with ostial 50% stenosis
Assessment: 74 year old male with PMH of chest pain, CAD, NSTEMI, s/p CABG x 3 with ambulatory and ADL dysfunction.
�
Plan�
PM&R�PT/OT to increase independence with ADLs, improve balance, coordination, endurance, strength, mobility, community reintegration, decreased burden of care on others and family education.�
Debility:PT/OT
NSTEMI S/P CABG x 3: 04/17/[address] Ascencion Smith. Sternal precautions.� Aspirin, statin, amiodarone 200 mg 3 times daily, Plavix 75 mg daily, Farxiga 10 mg, metoprolol XL 100 daily BP control.� Monitor incision, pain control.�
HTN: Metoprolol XL 100 mg daily, monitor closely�
HLD: Fenofibrate 145 mg at bedtime
Coronary artery disease�:multi-vessel, Aspirin, statin, beta-homero��
DM II: Accu-Cheks, insulin sliding scale, glimepiride 4 mg daily, Farxiga 10 daily
Anemia: Postop and multifactorial.� Ferrous sulfate 325 daily continue to monitor.�
Psych: Monitor mood, medications as needed.�
Skin: monitor for pressure sores/rashes/lesions.�
Pain: acetaminophen or oxycodone 2.5 or 5 mg every 4 hours as needed as needed.� Gabapentin 100 mg 3 times daily, lidocaine patch, Flexeril 5 mg Q8 as needed
Bowel: Colace and Senna, PRN bisacodyl.�
Bladder: Time void, PVRs, PRN straight cath.�
GI Prophylaxis: Pantoprazole�
DVT Prophylaxis: comment on chemoprophylaxis
Pulmonary: Incentive spirometry�
Safety: Continue to reinforce assistance with all transfers.�
Code Status:� Full code
Dispo�(date/plan/equipment needs): Home with family care.� Social history reviewed.�
Functional and Medical Goals:�Modified Independent with ADL�s, ambulation, transfers�
Discharge Destination:�Acute inpatient rehabilitation
�
Attending Statement:
I saw and examined the patient today. Reviewed care plan with patient, therapy, nursing, and physician certified medical technician assistant. I agree with the above subjective and physical exam, and plan as documented by JESSICA Lazar with adjustments made as necessary. A
total of 60 minutes were spent with the patient preparing for the evaluation, obtaining history, performing examination and evaluation, counseling, data review, case management, care coordination, wire border assembler, and EMR documentation.
Thank you for allowing me to care for your patient. Please contact me with any questions or concerns.
--- NOTE | 2025-04-23 08:30 | PN.DE.MGMTRT ---
Insulin Management
- -
04/23/2025: Diabetes Management Follow up Consult
74 year old male admitted 04/14/25 for exertional chest pain. PMH: Nicotine use, HTN, HLD, CAD Mohs procedure 04/10/25 and T2DM. Presented to the hospital with 3 episodes of transient pressure-like chest pain radiating to jaw and arms b/l R/I for
NSTEMI. Left heart cath reported tripple vessel coronary disease--> CABG. Was taking Farxiga 10mg daily and Ozempic 1mg Q Sunday. A1C 7.4%, Cr 0.6, eGFR >60
Patient awake, alert, oriented, sitting up in chair, offers no complaints, able to discuss diabetes care plan. at bedside, very supportive.
POD #6 s/p CABG x3. Transitioned off glycemic protocol 04/20 @ [facility].
Patient new to glimepiride 4 mg this admission. Glucose range yesterday 108 to 184.
Fasting glucose this AM 108. Will make no change to regimen glimepiride 4 mg daily with Farxiga 10 mg daily. Reviewed action of glimepiride with patient and importance of testing glucose and reporting to primary provider all results to determine
if glimepiride should be continued.
Pt was instructed to resume Ozempic upon discharge home
Discussed with Nurse. Will cont to follow
Diabetes History
- -
Type of Diabetes: 2
Pre-Admission Diabetes Regimen
Lab Results
Hemoglobin A1c 7.4 % (4.0-5.6) H 04/15/25 07:27
Insulin Pump Settings
IP Diabetes Regimen
04/22/25 04/22/25 04/22/25
08:49 12:35 18:18
POC Glucose 129 H 124 H 133 H
04/22/25
22:05
POC Glucose 184 H
Meal type: Breakfast
Patient Education
[2025-04-23] MEDS: LOW STRENGTH ASPIRIN 81 MG PO (08:46)
[2025-04-23] MEDS: FARXIGA 10 MG PO (08:46)
[2025-04-23] MEDS: TOPROL XL 100 MG PO (08:46)
[2025-04-23] MEDS: NEURONTIN 100 MG PO (08:46)
[2025-04-23] MEDS: FEOSOL 325 MG PO (08:46)
[2025-04-23] MEDS: PLAVIX 75 MG PO (08:46)
[2025-04-23] MEDS: TYLENOL PO ×2 (08:46→15:21)
[2025-04-23] MEDS: NOVOLOG FLEXPEN-MODERATE RESISTANCE SC ×2 (08:46→13:14)
[2025-04-23 08:47] VITALS: BP 131/68
[2025-04-23] MEDS: VITAMIN C 500 MG PO (08:47)
[2025-04-23] MEDS: SENOKOT PO (08:48)
[2025-04-23] MEDS: PACERONE 200 MG PO (08:48)
[2025-04-23] MEDS: AMARYL 4 MG PO (08:48)
[2025-04-23 08:52] LABS: Glucose - Point of Care 134 mg/dl (70-99)
[2025-04-23] MEDS: LIDOCAINE 4% PATCH TOPICAL (09:17)
--- NOTE | 2025-04-23 11:03 | CM ---
Reviewed chart. Tele[phone call to [facility]. Liaison to confirm bed availability. Bed [facility] at [facility] room 308. Met with Mr. Lund to review discharge plans. He is agreeable to going to [facility]. Medical work-up in progress. The
discharge plan is to go to [facility] [place] when medically stable.
--- NOTE | 2025-04-23 11:31 | W.DCSUMMARY ---
Discharge Summary
Discharge Data
Date of Admission: 04/15/25
Date of Discharge: 04/23/25
-
Pending Results: No
Hospital Course
Primary care physician: Dr. Poppy Bailey
Outpatient setter up: Dr. Antoine Funes
Inpatient consultants: [facility], Nursing Specialist/Pulmonology, diabetic nurse practitioner
Procedures:
1. CABG x 3 (HERMES-LAD, GSV-OM1, GSV-RPDA) with eLAA (40 mm AtriClip) by Dr. Ascencion Smith on 04/17/25
Primary Diagnosis:
1. Severe Multivessel Coronary Artery Disease with NSTEMI
Secondary Diagnoses:
1. Acute postop blood loss anemia - stable
2. Acute postop thrombocytopenia
3. Acute postop atelectasis
4. Acute postop hypervolemia with subsequent hypervolemia
5. Suspected acute postop pericarditis/+rub
6. Acute postop atrial fibrillation with controlled ventricular rate
7. Hypertension
8. Hyperlipidemia
9. Type II DM
10. Hep C-remote
11. Current tobacco use
12. Mohs procedure right forehead 04/10/2025
13. BPH
HPI: 74-year-old male with past medical history of hypertension, hyperlipidemia, type 2 diabetes, and known markedly abnormal coronary calcium score with majority in LAD territory. He underwent nuclear stress test on reporting small basal
inferior and mid inferior defect that is fixed without evidence of ischemia and preserved EF. He underwent CT lung scan in February 2025 which showed severe coronary calcifications. On 04/14/2025, patient developed mild chest tightness with
associated total and bilateral arm pain while exerting himself. His symptoms occurred several hours later while he was at rest in which he reported to [facility] ER following an unprovoked third episode. His initial troponin was 0.058 and peak 0.134
consistent with ACS/NSTEMI. On 04/15/2025 he underwent a coronary catheterization showing triple-vessel CAD. Cardiac surgery was consulted in which he underwent CABG evaluation.
Hospital course: Mr. Lund ruled in for NSTEMI on 04/14/25 with peak troponin of 0.134. On 04/15/2025, cardiac catheterization showed three-vessel CAD in which he was referred for cardiac surgery. On 05/14/2025 he underwent a CABGx 3 (HERMES-LAD,
GSV-OM1, GSV-RPDA) with eLAA (40 mm AtriClip) by Dr. Ascencion Smith. Please see surgeons record for complete dictation of surgery. In progressive fashion, vasopressor support, central lines, chest tubes, and epicardial pacing wires were
discontinued. An insulin drip was initiated following surgery and was transferred to moderate scale sliding scale insulin and oral agent. Diabetic nurse practitioner was consulted in which patient was initiated on Amaryl and continued on Farxiga
10 mg daily. He is able to resume Ozempic when attainable. Postoperative course was complicated by postoperative A-fib in which he converted after an amiodarone bolus and IV metoprolol. He continued on amiodarone at discharge with plan to resume
amiodarone 200 mg twice a day for 14 days then decrease to 200 mg daily. Anticoagulation was not initiated due to lack of A-fib recurrence after brief episode on postoperative day 2. He will continue Toprol-XL 100 mg daily and tolerated regiment
prior to discharge. Patient was initiated on aspirin/Plavix; he will continue aspirin 81 mg indefinitely and continue Plavix 75 mg daily for 1 year in setting of ACS/NSTEMI prior to surgery. Patient resumed lisinopril 2.5 mg at discharge to
continue GDMT. He will continue atorvastatin, which was increased during admission, and fenofibrate; LDL was 53 on 04/15/2025 on postoperative day 6, he was tolerating physical therapy, tolerating his diet, showered and was hemodynamically stable
for discharge to acute rehab facility. His weight on day of discharge was 70.4 kg, compared to preoperative weight of 69.4 kg. He will follow-up with Dr. Smith within 30 days from surgery. He is scheduled to follow-up with his outpatient
setter up. He was referred to follow-up with his PCP in 4 to 6 weeks from discharge.
Home medication changes:
- See medication list provided below
Discharge Plan
-
Patient Disposition: Acute Rehab Facility
Discharge Diagnosis/Procedures: Multi-vessel CAD with NSTEMI/CABG x 3 (HERMES to LAD, GSV to OM1, GSV to RPDA); eLAA (40 mm AtriClip) on 04/17/[address] Ascencion Smith
Condition: Good
Diet: Low Cholesterol and 2 Gram Sodium
Activity: No strenuous activity
Driving Restrictions: Not until seen by your Dr
Bathing Restrictions: OK to Shower
Other Services: Cardiac Rehab
Wound Care: No lotions, creams, or powders on procedural sites.
Shower daily with soap and water.
Remaining Chest Tube sutures to be cut in 3-4 days from discharge.
Specialty Instructions: Weigh Daily- Call MD for wt gain/loss 3 lbs overnight/5 lbs in 1 week
Activity Restrictions/Additional Instructions:
ACTIVITY:
-No strenuous activity: no heavy lifting, pushing, pulling anything over 15 pounds for one month
-continue to use stairs as tolerated
DRIVING RESTRICTIONS:
-No driving for one month or until approved by your surgeon
WOUND CARE:
-Shower daily. Use soap & water.
-No lotions, creams or powders on incision area.
DIET:
-continue a low fat/low cholesterol diet.
-IF you are diabetic, continue carb controlled diet.
CARDIAC REHAB:
-Please make appointment to start in 5-6 weeks with your local hospital program. (See Cardiac Rehabilitation Discharge Booklet).
SPECIALTY INSTRUCTIONS:
-Weigh yourself daily. Call your physician for any weight gain/loss of 3 lbs overnight or 5 lbs in one week.
-REPORT any clicking noise or uneven appearance of your sternum to your surgeon immediately.
-If you smoke, you are instructed to quit. The [place] smoking hotline phone number is [phone]
Referrals:
[facility] [Other]
[facility] [Outside] - 06/01/25
Referral Note: Cardiac Rehab Orientation appointment is on 06/01/25 at 1 pm.
The Cardiac Rehab gym is located on the first floor of the [facility].
Poppy Bailey DO [Family Provider, Family Practice] - in four to six weeks
Referral Note: Please make an appointment in four to six weeks.
Mandy Rivas CRNP [Specified Professional Personl, Cardiology] - 05/26/25 3:00 pm
Ascencion Smith MD [Active, Cardiac Surgery] - 05/12/25 1:30 pm
Prescriptions:
New
amiodarone [Pacerone] 200 mg Tablet
200 mg PO BID 30 Days Qty: 60 0RF
Rx Instructions:
200 mg twice a day until 05/07/25, then 200 mg daily.
clopidogrel 75 mg Tablet
75 mg PO DAILY Qty: 60 0RF
ferrous sulfate [FeroSul] 325 mg (65 mg iron) Tablet
325 mg PO DAILY 14 Days Qty: 14 0RF
glimepiride 4 mg Tablet
4 mg PO DAILY Qty: 30 0RF
atorvastatin 40 mg Tablet
40 mg PO QPM Qty: 60 0RF
metoprolol succinate 100 mg Tablet Extended Release 24 Hr
100 mg PO DAILY Qty: 60 0RF
sennosides [Tawanna-hellen] 8.6 mg Tablet
8.6 mg PO [id number] PRN (Reason: Constipation) Qty: 0 0RF
acetaminophen 325 mg Tablet
650 mg PO Q6HPRN PRN (Reason: mild pain,headache,temp >101F ) Qty: 0 0RF
aspirin 81 mg Tablet,Chewable
81 mg PO DAILY Qty: 0 0RF
ascorbic acid (vitamin C) [Vitamin C] 500 mg Tablet
500 mg PO DAILY 14 Days Qty: 14 0RF
Continued
valacyclovir 500 mg Tablet
1,000 mg PO SUWE
lisinopril 2.5 mg Tablet
2.5 mg PO DAILY
diazepam 5 mg Tablet
5 mg PO DAILY PRN (Reason: anxiety)
esomeprazole magnesium [Nexium] 20 mg Capsule,Delayed Release(Dr/Ec)
20 mg PO BID
fenofibrate nanocrystallized [Tricor] 145 mg Tablet
145 mg PO HS
dapagliflozin propanediol [Farxiga] 10 mg Tablet
10 mg PO DAILY
Ozempic 1 mg/dose (4 mg/3 mL) Pen Injector
1 mg SC SA
psyllium Packet
1 packet PO DAILY
Discontinued
atorvastatin [Lipitor] 10 mg Tablet
5 mg PO QPM
bisoprolol-hydrochlorothiazide 5-6.25 mg Tablet
1 tab PO DAILY@1200
Discharge Orders:
Discharge Patient (As Directed); Ordered 04/23/25
Ordered By: Stephanie Roa
Care Plan Goals
Care Plan Goals:
Problem: Readiness for enhanced knowledge related to diagnosis and treatment plan
Goal: Understand your diagnosis and treatment plan needs, including medications if applicable.
Instructions: Know your diagnosis, underlying causes and treatment plan options, including medications if applicable. Consult with your health care team to learn about your diagnosis and treatment plan, including medications if applicable.
Discharge Date and Time
Print Language: FAROESE
[2025-04-23 12:10] VITALS: BP 98/52
--- NOTE | 2025-04-23 12:28 | PTCARENOTE ---
Ambulated in hallway with RN using rolling walker, excited to be going to [facility] later today. VSS Assessment otherwise unchanged from prior
[2025-04-23 12:43] LABS: Glucose - Point of Care 137 mg/dl (70-99)
[2025-04-23] MEDS: NSS IV (13:15)
--- NOTE | 2025-04-23 15:43 | PTCARENOTE ---
Report given to Joel at [facility], waiting for bed to be cleaned. Pt resting in room . VSS Assessment otherwise unchanged
[2025-04-23 17:23] LABS: Glucose - Point of Care 96 mg/dl (70-99)
== END 2025-04-23 17:50 | DRG 234 ==
LOC: CVICU 00:37
PROVIDERS: Emergency Medicine; Internal Medicine; Internal Medicine Interventional Cardiology; Nurse Practitioner; Physician Assistant Medical; Thoracic Surgery (Cardiothoracic Vascular Surgery); ADMITTING PHYSICIAN Internal Medicine; ATTENDING PHYSICIAN Thoracic Surgery (Cardiothoracic Vascular Surgery); CONSULT PHYSICIAN Internal Medicine; CONSULT PHYSICIAN Internal Medicine Cardiovascular Disease; CONSULT PHYSICIAN Physical Medicine & Rehabilitation; EMERGENCY PHYSICIAN Student in an Organized Health Care Education/Training Program; FAMILY PHYSICIAN Family Medicine
PROC: B2111ZZ Fluoroscopy of Multiple Coronary Arteries using Low Osmolar Contrast (ICD-10-PCS; 2025-04-15)
PROC: 4A023N7 Measurement of Cardiac Sampling and Pressure, Left Heart, Percutaneous Approach (ICD-10-PCS; 2025-04-15)
PROC: 02L70CK Occlusion of Left Atrial Appendage with Extraluminal Device, Open Approach (ICD-10-PCS; 2025-04-17)
PROC: 5A1221Z Performance of Cardiac Output, Continuous (ICD-10-PCS; 2025-04-17)
PROC: 06BP4ZZ Excision of Right Saphenous Vein, Percutaneous Endoscopic Approach (ICD-10-PCS; 2025-04-17)
PROC: B24BZZ4 Ultrasonography of Heart with Aorta, Transesophageal (ICD-10-PCS; 2025-04-17)
PROC: 0211093 Bypass Coronary Artery, Two Arteries from Coronary Artery with Autologous Venous Tissue, Open Approach (ICD-10-PCS; 2025-04-17)
PROC: 02100ZC Bypass Coronary Artery, One Artery from Thoracic Artery, Open Approach (ICD-10-PCS; 2025-04-17)
DX: I21.4 Non-ST elevation (NSTEMI) myocardial infarction (principal); D62 Acute posthemorrhagic anemia; J98.11 Atelectasis; I30.9 Acute pericarditis, unspecified; I25.10 Atherosclerotic heart disease of native coronary artery without angina pectoris; E11.9 Type 2 diabetes mellitus without complications; I10 Essential (primary) hypertension; K21.9 Gastro-esophageal reflux disease without esophagitis; F17.210 Nicotine dependence, cigarettes, uncomplicated; I70.0 Atherosclerosis of aorta; D69.59 Other secondary thrombocytopenia; E86.1 Hypovolemia; I48.91 Unspecified atrial fibrillation; E87.70 Fluid overload, unspecified; N40.0 Benign prostatic hyperplasia without lower urinary tract symptoms; Z83.3 Family history of diabetes mellitus; Z82.49 Family history of ischemic heart disease and other diseases of the circulatory system; Z82.3 Family history of stroke; Z79.82 Long term (current) use of aspirin; Z79.84 Long term (current) use of oral hypoglycemic drugs; Z79.899 Other long term (current) drug therapy; Z87.19 Personal history of other diseases of the digestive system; Z90.49 Acquired absence of other specified parts of digestive tract; Z79.85 Long-term (current) use of injectable non-insulin antidiabetic drugs; Z86.19 Personal history of other infectious and parasitic diseases
CPT/HCPCS: 71045; 71046; 71250; 80048; 80053; 80061; 81003; 81015; 82330; 82565; 82805; 82947; 82962; 83036; 83735; 84132; 84302; 84443; 84484; 84520; 85014; 85018; 85025; 85027; 85049; 85610; 85730; 86803; 86850; 86900; 86901; 86920; 87522; 93005; 93306; 93458; 93880; 93923; 93930; 94002; 94010; 96365; 97110; 97163; 97166; 97530; 97535; 99152; 99291; 99406; C1769; C1894; P9045; Q9967

== ENCOUNTER 2025-06-12 11:06 | Outpatient (RCR) | payer BC, SELFPAY ==
[2025-06-01 11:04] LABS: Glucose - Point of Care 121 mg/dl (70-99)
[2025-06-01 11:46] LABS: Glucose - Point of Care 109 mg/dl (70-99)
[2025-06-05 15:42] LABS: Glucose - Point of Care 118 mg/dl (70-99)
[2025-06-05 16:44] LABS: Glucose - Point of Care 75 mg/dl (70-99)
[2025-06-05 16:58] LABS: Glucose - Point of Care 120 mg/dl (70-99)
[2025-06-08 10:55] LABS: Glucose - Point of Care 71 mg/dl (70-99)
[2025-06-08 11:14] LABS: Glucose - Point of Care 59 mg/dl (70-99)
[2025-06-08 11:34] LABS: Glucose - Point of Care 103 mg/dl (70-99)
[2025-06-10 10:57] LABS: Glucose - Point of Care 127 mg/dl (70-99)
[2025-06-10 11:59] LABS: Glucose - Point of Care 67 mg/dl (70-99)
[2025-06-10 12:19] LABS: Glucose - Point of Care 78 mg/dl (70-99)
[2025-06-12 11:02] LABS: Glucose - Point of Care 155 mg/dl (70-99)
[2025-06-12 11:53] LABS: Glucose - Point of Care 99 mg/dl (70-99)
== END 2025-06-12 23:59 | disposition home or self-care (01) ==
LOC: CRHB 11:06
PROVIDERS: ATTENDING PHYSICIAN Internal Medicine Cardiovascular Disease
DX: I25.10 Atherosclerotic heart disease of native coronary artery without angina pectoris (principal); I25.2 Old myocardial infarction (principal); Z95.1 Presence of aortocoronary bypass graft; I21.4 Non-ST elevation (NSTEMI) myocardial infarction
CPT/HCPCS: 82962; 93797; 93798

== ENCOUNTER 2025-07-15 11:50 | Outpatient (RCR) | payer BC, SELFPAY ==
[2025-06-15 11:08] LABS: Glucose - Point of Care 124 mg/dl (70-99)
[2025-06-15 12:06] LABS: Glucose - Point of Care 117 mg/dl (70-99)
[2025-06-17 11:03] LABS: Glucose - Point of Care 117 mg/dl (70-99)
[2025-06-17 12:05] LABS: Glucose - Point of Care 99 mg/dl (70-99)
[2025-06-19 11:02] LABS: Glucose - Point of Care 133 mg/dl (70-99)
[2025-06-19 12:03] LABS: Glucose - Point of Care 104 mg/dl (70-99)
[2025-06-22 11:09] LABS: Glucose - Point of Care 100 mg/dl (70-99)
[2025-06-22 12:19] LABS: Glucose - Point of Care 92 mg/dl (70-99)
[2025-06-24 11:06] LABS: Glucose - Point of Care 113 mg/dl (70-99)
[2025-06-24 12:14] LABS: Glucose - Point of Care 104 mg/dl (70-99)
== END 2025-07-15 23:59 | disposition home or self-care (01) ==
LOC: CRHB 11:50
PROVIDERS: ATTENDING PHYSICIAN Internal Medicine Cardiovascular Disease; FAMILY PHYSICIAN Family Medicine
DX: I25.2 Old myocardial infarction (principal); I25.10 Atherosclerotic heart disease of native coronary artery without angina pectoris (principal); I21.4 Non-ST elevation (NSTEMI) myocardial infarction (principal); Z95.1 Presence of aortocoronary bypass graft
CPT/HCPCS: 82962; 93797; 93798